=== PATIENT | female | born 1950 | race Caucasian/White ===

== ENCOUNTER 2023-12-23 17:10 | Emergency (ER) | payer MEDICARE, OTHER, SELFPAY ==
[2023-12-23 17:14] VITALS: BP 177/111
[2023-12-23] MEDS: MOTRIN 600 MG PO (18:29)
--- NOTE | 2023-12-23 18:42 | ED.MUSCINJ ---
HPI-Injury
General
Chief Complaint: Musculo-Skeletal Complaint
Source: patient and significant other
Exam Limitations: none
Time Seen by Provider: 12/23/23 18:01
Nursing documentation reviewed up to this point in time: agreed with
Travel History
Have you had any contact with someone who has COVID-19?: No
Do you have any symptoms of coronavirus? Fever > 100 degrees, chills, cough, shortness of breath, sore throat, loss of taste or smell, muscle aches, or headache?: No
History of Present Illness-Injury
Is this injury a work related problem?: No
Is pt an associate of [facility]?: No
Initial Injury comments:
Patient is a 73-year-old female with past medical history of hypertension, hyperlipidemia, breast cancer currently in remission, total knee replacement on the left, who presents to the emergency department accompanied by her for evaluation
of right knee pain. 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 Patient reports that she was able to
hobble to the car and drive home but has had to use a walker since getting home to help her get around. Patient denies that the pain radiates down her leg or up into her hip. Patient denies any numbness, weakness, tingling of the foot or toes.
Patient reports that she does have an orthopedic surgeon that she sees regularly and did have a steroid injection into this knee a few weeks ago.
Past History
Past History
ED Past Medical History: Cancer (Breast cancer), HTN and Hypercholesterolemia
Social History
Tobacco: Non-smoker
Alcohol: None
Drug: None
Personal:
Review of Systems
Review of Systems
All Other Systems: Not applicable
Constitutional: Reports no symptoms
EENT: Reports no symptoms
Respiratory: Reports no symptoms
Cardiac: Reports no symptoms
ABD/GI: Reports no symptoms
: Reports no symptoms
Musculoskeletal: Reports other (Right knee pain)
Skin: Reports no symptoms
Neurological: Reports no symptoms
Endocrine: Reports no symptoms
Hematologic/Lymphatic: Reports no symptoms
Psychiatric: Reports no symptoms
Musculoskeletal Injury Exam
Musculoskeletal Injury Exam
Right Posterior Knee:
Pain with Movement?: Moderate
Tender to palpation?: Moderate
Soft tissue swelling?: Mild
External deformity and angulation?: None
Joint effusion?: None
Contusion?: None
Hematoma-local bleeding into tissue?: None
Joint instability?: No
Malalignment/deformity?: No
Range of motion: Full
Distal skin color and temperature: normal-warm & good color
Normal distal neurovascular exam?: Yes
Phy Exam
General Physical Exam
General Presentation: well appearing
General Skin: warm and dry
General Habitus: normal
General Mental: alert
General Hydration: appears well hydrated
ENT Exam
ENT Exam: EOMI, pharynx normal, neck supple and normocephalic
Eye Exam
Eye Exam: PERRL, cornea clear and conjunctiva normal
Pulmonary Exam
Pulmonary Exam: no respiratory distress
Neurological Exam
Neurological Exam: alert, oriented x3, no motor deficits and speech normal
Skin Exam
Skin Exam: normal color, warm/dry, no rash and no petechia
Psychiatric Exam
Psychiatric Exam: normal mood/affect
Injury Course
Orders/Labs/Results
Orders:
Orders
12/23/23 18:17
Ibuprofen [Motrin] 600 mg PO NOW STA
CR Knee- Right 4 Or More View* Urgent
Reason For Exam: RIGHT posterior knee pain, hx of OA
12/23/23 19:33
Luiz Wrap Left-Treatment ONCE
*Critical Care Note
Total Time (30-74mins, 75-104mins- exclusive of procedures): Not Applicable
Update Note
Update Note:
73-year-old female presents to the emergency department for sudden onset of right knee pain while stepping down a step earlier today. On arrival, patient is hypertensive but is in pain, afebrile. On exam, patient is well-appearing, she is in no
acute distress, she has no erythema or significant swelling over the knee, she has mild tenderness to palpation over the posterior aspect of the knee with full range of motion without significant pain, she is neurovascularly intact distally.
Radiographs of the right knee were obtained and demonstrate no acute abnormality to account for the patient's pain. I suspect the patient's pain could be due to an internal derangement. Will treat as such with an Luiz wrap during the day,
instructions on supportive care including rest, ice, elevation along with NSAIDs. Patient encouraged to follow-up with her economic specialist for definitive diagnosis and treatment. Patient also educated on return precautions, she and her
significant other expressed understanding of the plan and agreed.
ED Attending Note
-
Portions of this chart may have been created with voice recognition software.� Occasional wrong word or��sound alike� substitutions may have occurred due to the inherent limitations of voice recognition software.
Discharge Plan
Departure
Patient Disposition: Home (Routine Discharge)
Date of Disposition: 12/23/23
Time of Disposition: 19:33
Patient with high blood pressure during this ER visit?: Yes
Condition: Good
Covid-19: Not Applicable
Discharge Problem:
Acute pain of right knee
Instructions: Knee Pain (DC)
Prescriptions:
No Action
gabapentin 300 mg capsule
300 mg PO TID PRN (Reason: back pain/leg pain) Qty: 30 0RF
Referrals:
Aleksandr Zuniga MD [Active] - Follow up in 5-7 days
Julian Pro MD [Family Provider] -
Activity Restrictions/Additional Instructions:
You were seen in the emergency department for evaluation of left knee pain. You had x-rays which show no bony injury. You were given an luiz wrap, please use it during the day but remove it at night. Please rest and elevate your knee. You may
take ibuprofen and/or Tylenol for pain. Please follow-up with your economic specialist for further evaluation and treatment. Please return to the emergency department for severe pain, swelling, redness, fever greater than 100.4F, or for any
other worsening or concerning symptoms.
Interventions
Interventions:
*Risk Screen - Suicide Last Done: 12/23/23 18:36
*General Assessment Last Done: 12/23/23 17:14
*Neglect/Abuse Screening Last Done: 12/23/23 18:36
ED- Fall Risk Assessment Last Done: 12/23/23 18:36
*ED COVID-19 Vaccine History Last Done: 12/23/23 17:14
*Nursing Disposition Last Done: 12/23/23 19:49
ED-Musculoskeletal Assessment Last Done: 12/23/23 18:36
Discharge Date and Time
Discharge Date/Time: 12/23/23 20:02
== END 2023-12-23 20:02 | disposition home or self-care (01) ==
LOC: EMR 17:10
PROVIDERS: EMERGENCY PHYSICIAN Emergency Medicine; FAMILY PHYSICIAN Family Medicine
DX: M25.561 Pain in right knee (principal); I10 Essential (primary) hypertension; E78.00 Pure hypercholesterolemia, unspecified; Z96.652 Presence of left artificial knee joint
CPT/HCPCS: 99283; 73564

== ENCOUNTER 2024-03-09 17:43 | Emergency (ER) | payer MEDICARE, OTHER, SELFPAY ==
[2024-03-09 17:48] VITALS: BP 197/109
[2024-03-09 18:10] LABS: % Basophils 0.8 % (0-2); % Eosinophils 1.1 % (0-6); % Immature Granulocytes 0.4 % (0-0.5); % Monocytes 10.6 % (1.7-9.3); % Neutrophils 64.1 % (42.2-75.2); Absolute Basophils 0.1 10^3/uL (0-0.2); Absolute Eosinophils 0.1 10^3/uL (0-0.7); Absolute Lymphocytes 1.8 10^3/uL (1.2-3.4); Absolute Monocytes 0.8 10^3/uL (0.1-0.6); Absolute Neutrophils 5.1 10^3/uL (1.4-6.5); Hematocrit 35.5 % (37.0-47.0); Hemoglobin 12.4 g/dL (12.0-16.0); Mean Corp Hgb Conc. 34.9 g/dL (33.0-37.0); Mean Corpuscular Hgb 27.6 pg (27.0-31.0); Mean Corpuscular Volume 78.9 fL (81.0-99.0); Mean Platelet Volume 8.9 fL (7.4-10.4); Nucleated Red Blood Cells % 0 %; Platelet Count 344 10^3/uL (130-400); Red Cell Dist. Width 14.2 % (11.5-14.5); White Blood Cell Count 7.9 10^3/uL (4.8-10.8)
[2024-03-09 18:23] LABS: D-Dimer 0.91 ug/mlFEU (0.00-0.50)
[2024-03-09 18:25] LABS: ALT (SGPT) 15 U/L (0-35); AST (SGOT) 24 U/L (14-36); Albumin 4.3 g/dl (3.5-5.0); Alkaline Phosphatase 95 U/L (38-126); Blood Urea Nitrogen 17 mg/dl (7-17); Calcium 9.8 mg/dl (8.4-10.2); Carbon Dioxide 25 mmol/L (22-30); Chloride 96 mmol/L (98-107); Glucose 105 mg/dl (70-99); Potassium 3.7 mmol/L (3.5-5.1); Sodium 130 mmol/L (135-145); Total Bilirubin 0.5 mg/dl (0.2-1.3); Total Protein 7.3 g/dl (6.3-8.2); eGFR > 60.00
[2024-03-09 18:34] LABS: Troponin I < 0.012 ng/ml
--- NOTE | 2024-03-09 21:02 | ED.GENMED ---
History of Present Illness
General
Chief Complaint: Chest Pain
Source: patient
Exam Limitations: none
Time Seen by Provider: 03/09/24 20:58
Travel History
Have you had any contact with someone who has COVID-19?: No
Do you have any symptoms of coronavirus? Fever > 100 degrees, chills, cough, shortness of breath, sore throat, loss of taste or smell, muscle aches, or headache?: No
History of Present Illness
History of Present Illness:
See MDM
Past History
Past History
ED Past Medical History: Cancer (Breast cancer), HTN and Hypercholesterolemia
Social History
Tobacco: Non-smoker
Alcohol: None
Drug: None
Personal:
Phy Exam
Physical Exam
Physical Exam:
See MDM
Scores
Heart Score for Chest Pain Patients
STEMI patient?: No
History: Slightly or Non-Suspicious
ECG: Normal
Age: >/= 65 years
Risk Factors: 1 or 2 Risk Factors
Troponin: </= Normal Limit
Heart Score for Chest Pain Patients: 3
Heart Score Risk: 2.5% MACE over next 6 weeks
Course
Orders/Labs/Results
Orders:
Orders
03/09/24 17:47
EKG [Electrocardiogram (*1)] Urgent
Reason for Study: Chest Pain
EKG- Treatment ONCE
03/09/24 18:04
CMP [Comprehensive Metabolic Panel] Urgent
Complete Blood Count/With Diff Urgent
D-Dimer Urgent
Troponin I Urgent
03/09/24 19:01
CT Chest Pe Study Urgent
Comment:
Reason For Exam: elevated dimer
03/09/24 20:37
Electrocardiogram (*1) Urgent
Reason for Study: Chest Pain
EKG- Treatment ONCE
03/09/24 21:02
Ketorolac [Toradol] 30 mg IV NOW STA
03/09/24 21:38
Labetalol HCl [Trandate] 10 mg IV NOW STA
03/09/24 21:41
Troponin I Urgent
Abnormal Lab Results
03/09/24
18:04
Hct 35.5 L %
(37.0-47.0)
MCV 78.9 L fL
(81.0-99.0)
Absolute Monos (auto) 0.8 H 10^3/uL
(0.1-0.6)
Monocytes % 10.6 H %
(1.7-9.3)
D-Dimer 0.91 H ug/mlFEU
(0.00-0.50)
Sodium 130 L mmol/L
(135-145)
Chloride 96 L mmol/L
(98-107)
Glucose 105 H mg/dl
(70-99)
03/09/24 18:04
03/09/24 18:04
Vital Signs
Initial and Last Documented VS:
Initial Vital Signs
Temp Pulse Resp BP Pulse Ox
98.2 F 97 16 197/109 96
03/09/24 17:48 03/09/24 17:48 03/09/24 17:48 03/09/24 17:48 03/09/24 17:48
Last Documented Vital Signs
Temp Pulse Resp BP Pulse Ox
98.2 F 76 16 190/105 96
03/09/24 17:48 03/09/24 21:49 03/09/24 17:48 03/09/24 21:49 03/09/24 17:48
MDM/Problems Addressed
Differential Diagnosis Includes:
HPI and MDM Narrative:
73-year-old female presenting with central chest discomfort that is worse with deep inspiration. Patient believes this could be related to gardening earlier today. She thinks it could be a muscle issue. However, she did get nervous and came to
the hospital. Blood work was done prior to my assessment. D-dimer was ordered and positive. Will obtain CT to rule out PE. EKG and troponin negative
Physical exam
General: Well appearing and non-toxic
HEENT: protecting airway
Neck: appears supple
CV: No evidence of cyanosis. Regular rate and rhythm
Chest: Mild tenderness to palpation of central chest
Resp: No accessory muscle use. Lungs clear
Abd: Non-distended
Extremities: No deformities
Neuro: alert
Psych: Mildly anxious
Skin: Intact
Problems Addressed including Acute and Chronic Conditions affecting care:
1. Chest pain
Acuity: acute
Prognosis: stable
Details: Likely musculoskeletal. Troponin EKG negative. Will obtain CT to rule out PE
2. Hypertension
Acuity: acute
Prognosis: unstable
Details: Likely a stress response. Will give dose of labetalol. No blood work evidence of endorgan damage
Updates
CT negative for PE. Patient feels comfortable going home
Differential Diagnosis (but not limited to): Musculoskeletal chest pain, PE, pneumothorax
Testing considered: Chest x-ray
Drug therapy (if applicable): OTC meds, please see d/c instruction regarding Rx drugs
Amount and/or Complexity of Data Reviewed
Clinical info obtained from: Patient
External data reviewed: N/A
Labs I independently reviewed (but not limited to): Troponin normal
Radiology: The CT scan was personally and independently reviewed. In addition, official CT report reviewed.
Pulse Ox: not hypoxic
EKG independently reviewed: Sinus rhythm, normal axis, no STEMI
Rapid Transit Operator: N/A
Critical Care: N/A
Risk of Complication:
Social Determinants of health: Good social support
Discussed with other providers: N/A
Escalation of Care includes Admit/Obs: After being observed in the Emergency Department, pt stable for discharge.
Occasional wrong word or 'sound a like' substitutions may have occurred due to the inherent limitations of voice recognition software. Read the chart carefully and recognize, using context, where substitutions have occurred.
*Critical Care Note
Total Time (30-74mins, 75-104mins- exclusive of procedures): Not Applicable
ED Attending Note
-
Portions of this chart may have been created with voice recognition software.� Occasional wrong word or��sound alike� substitutions may have occurred due to the inherent limitations of voice recognition software.
Discharge Plan
Departure
Patient Disposition: Home (Routine Discharge)
Date of Disposition: 03/09/24
Time of Disposition: 22:31
Patient with high blood pressure during this ER visit?: Yes
Discharge Problem:
Chest pain
Instructions: Chest Pain That Is Not Caused by the Heart (DC), BLOOD PRESSURE
Prescriptions:
No Action
gabapentin 300 mg capsule
300 mg PO TID PRN (Reason: back pain/leg pain) Qty: 30 0RF
Referrals:
Julian Pro MD [Family Provider] -
Activity Restrictions/Additional Instructions:
Please return for any worsening symptoms.
You may return at any time if you have further concerns.
Please follow up with your doctor at the first available appointment, preferably this week.
Thank you for choosing [facility].
Discharge Date and Time
Print Language: YAKUT
[2024-03-09] MEDS: TORADOL 30 MG IV (21:48)
[2024-03-09] MEDS: TRANDATE 10 MG IV (21:49)
[2024-03-09 22:22] LABS: Troponin I < 0.012 ng/ml
[2024-03-09 22:51] VITALS: BP 185/102
== END 2024-03-09 22:55 | disposition home or self-care (01) ==
LOC: EMR 17:43
PROVIDERS: Emergency Medicine; EMERGENCY PHYSICIAN Student in an Organized Health Care Education/Training Program; FAMILY PHYSICIAN Family Medicine
DX: R07.89 Other chest pain (principal); E78.00 Pure hypercholesterolemia, unspecified; I10 Essential (primary) hypertension; Z85.3 Personal history of malignant neoplasm of breast
CPT/HCPCS: 99284; 96374; 96375; 71275; 80053; 84484; 85025; 85379; 93005; Q9967

== ENCOUNTER 2024-04-06 20:58 | Emergency (ER) | payer MEDICARE, OTHER, SELFPAY ==
[2024-04-06 20:59] VITALS: BP 194/89; BMI 30.1
--- NOTE | 2024-04-06 21:36 | ED.GENMED ---
History of Present Illness
General
Chief Complaint: Fall
Source: patient and spouse
Exam Limitations: none
Time Seen by Provider: 04/06/24 21:00
Nursing documentation reviewed up to this point in time: agreed with
Travel History
Have you had any contact with someone who has COVID-19?: No
Do you have any symptoms of coronavirus? Fever > 100 degrees, chills, cough, shortness of breath, sore throat, loss of taste or smell, muscle aches, or headache?: No
History of Present Illness
History of Present Illness:
73-year-old female presents after a fall, had a total knee replacement as an outpatient today by Dr. Zuniga, walking with her walker tried to bear some weight on her right knee felt pain fell backwards struck her head on the ground no loss of
consciousness, did strike her right forearm on the ground arrives via EMS, in a cervical collar, Dr. Zuniga coincidently called the patient around this time to check on her, she is awake alert and oriented, only complaining of pain in her right
knee although she believes she did not strike her knee directly no preceding chest pain or shortness of breath
Past History
Past History
ED Past Medical History: Cancer (Breast cancer), HTN and Hypercholesterolemia
ED Past Surgical History: Orthopedic
Social History
Tobacco: Non-smoker
Alcohol: None
Drug: None
Personal:
Living: with family
Employment: Retired
Review of Systems
Review of Systems
All Other Systems: Not applicable
Constitutional: Denies fever or fatigue
Respiratory: Reports no symptoms
Cardiac: Reports no symptoms
ABD/GI: Reports no symptoms
Musculoskeletal: Reports joint pain; Denies neck pain
Neurological: Reports headache (Very mild posterior)
Hematologic/Lymphatic: Reports no symptoms
Psychiatric: Reports no symptoms
Phy Exam
Physical Exam
Physical Exam:
Physical Exam
General: no apparent distress, not acutely ill
Neck: Patient is a cervical collar
Heart: Regular
Lungs: no acute respiratory distress. clear bilaterally
Neuro: alert and oriented. no focal neurological deficits
Skin: no rash
Psychiatric: well kept. interactive and cooperative
Extremities: Expected swelling and pain in the right knee postoperatively small abrasion of the right forearm on the volar surface full range of motion
Course
Orders/Labs/Results
Orders:
Orders
04/06/24 21:16
CT Cervical Spine W/o Iv Contr Urgent
Comment:
Reason For Exam: fall
CT Head W/o Iv Contrast Urgent
Comment:
Reason For Exam: fall
Forearm, Right 2 View [CR Forearm - Right 2 View] Urgent
Comment:
Reason For Exam: fall
04/06/24 21:17
Knee, Right 1 or 2 Views [CR Knee - Right 1 Or 2 Views] Urgent
Comment:
Reason For Exam: fall TKR today
Vital Signs
Initial and Last Documented VS:
Initial Vital Signs
Temp Pulse Resp BP Pulse Ox
98.0 F 98 20 194/89 98
04/06/24 20:59 04/06/24 20:59 04/06/24 20:59 04/06/24 20:59 04/06/24 20:59
Last Documented Vital Signs
Temp Pulse Resp BP Pulse Ox
98.0 F 87 17 194/89 98
04/06/24 20:59 04/06/24 21:30 04/06/24 21:30 04/06/24 20:59 04/06/24 21:30
MDM/Problems Addressed
Differential Diagnosis Includes:
Slip and fall contusion C-spine injury history of hemorrhage
MDM/Problems Addressed:
Fall, no chest pain or shortness of breath
Chronic conditions affecting care:
Recent orthopedic surgery
Acute Exacerbation and/or Progression of Chronic Illness:
Recent orthopedic surgery
*Radiology
Radiology exam reviewed: preliminary read by ED provider and radiology read reviewed
*Pulse Oximetry
Patient hypoxic: no
*Critical Care Note
Total Time (30-74mins, 75-104mins- exclusive of procedures): Not Applicable
Update Note
Update Note:
Update, plain films noted CT reports noted
ED Attending Note
-
Portions of this chart may have been created with voice recognition software.� Occasional wrong word or��sound alike� substitutions may have occurred due to the inherent limitations of voice recognition software.
Discharge Plan
Departure
Patient Disposition: Home (Routine Discharge)
Date of Disposition: 04/06/24
Time of Disposition: 22:22
Patient with high blood pressure during this ER visit?: No
Condition: Good
Discharge Problem:
Fall
Instructions: Preventing falls in adults
Prescriptions:
No Action
gabapentin 300 mg capsule
300 mg PO TID PRN (Reason: back pain/leg pain) Qty: 30 0RF
Referrals:
Julian Pro MD [Family Provider] -
Activity Restrictions/Additional Instructions:
Ice to areas that hurt, continue medications as prescribed by orthopedics
Interventions
Interventions:
*Risk Screen - Suicide Last Done: 04/06/24 20:59
*General Assessment Last Done: 04/06/24 20:59
*Neglect/Abuse Screening Last Done: 04/06/24 20:59
ED- Fall Risk Assessment Last Done: 04/06/24 21:07
*ED COVID-19 Vaccine History Last Done: 04/06/24 20:59
ED-Musculoskeletal Assessment Last Done: 04/06/24 21:07
ED- Neurological Assessment Last Done: 04/06/24 21:06
ED-Skin Assessment Last Done: 04/06/24 21:09
Discharge Date and Time
Print Language: CITIZ[place]
[2024-04-06 22:07] VITALS: BP 178/91
== END 2024-04-06 22:47 | disposition home or self-care (01) ==
LOC: EMR 20:58
PROVIDERS: EMERGENCY PHYSICIAN Emergency Medicine; FAMILY PHYSICIAN Family Medicine
DX: M25.561 Pain in right knee (principal); S50.811A Abrasion of right forearm, initial encounter; W19.XXXA Unspecified fall, initial encounter; Z96.651 Presence of right artificial knee joint
CPT/HCPCS: 99285; 70450; 72125; 73090; 73560

== ENCOUNTER 2024-04-09 23:53 | Inpatient (IN) | payer MEDICARE, OTHER, SELFPAY ==
[2024-04-09 20:07] VITALS: BMI 30.8
[2024-04-09 20:17] VITALS: BP 207/85
[2024-04-09 20:19] VITALS: BP 207/85
[2024-04-09 20:26] LABS: % Basophils 0.2 % (0-2); % Immature Granulocytes 1.1 % (0-0.5); % Lymphocytes 4.8 % (20.5-51.1); % Monocytes 5.6 % (1.7-9.3); % Neutrophils 88.3 % (42.2-75.2); Absolute Basophils 0.1 10^3/uL (0-0.2); Absolute Immature Granulocytes 0.3 10^3/uL (0-0.05); Absolute Lymphocytes 1.3 10^3/uL (1.2-3.4); Absolute Monocytes 1.5 10^3/uL (0.1-0.6); Absolute Neutrophils 23.6 10^3/uL (1.4-6.5); Hematocrit 29.6 % (37.0-47.0); Hemoglobin 10.8 g/dL (12.0-16.0); Mean Corp Hgb Conc. 36.5 g/dL (33.0-37.0); Mean Corpuscular Hgb 27.9 pg (27.0-31.0); Mean Corpuscular Volume 76.5 fL (81.0-99.0); Nucleated Red Blood Cells % 0 %; Platelet Count 389 10^3/uL (130-400); Red Blood Cell Count 3.87 10^6/uL (4.20-5.40); Red Cell Dist. Width 13.6 % (11.5-14.5); White Blood Cell Count 26.7 10^3/uL (4.8-10.8)
[2024-04-09 20:45] LABS: ALT (SGPT) 21 U/L (0-35); AST (SGOT) 29 U/L (14-36); Albumin 4.1 g/dl (3.5-5.0); Alkaline Phosphatase 88 U/L (38-126); Blood Urea Nitrogen 17 mg/dl (7-17); Carbon Dioxide 22 mmol/L (22-30); Chloride 90 mmol/L (98-107); Estimated Creatinine Clearance 83 ml/min; Glucose 124 mg/dl (70-99); Potassium 3.6 mmol/L (3.5-5.1); Sodium 122 mmol/L (135-145); Total Bilirubin 0.7 mg/dl (0.2-1.3); Total Protein 6.9 g/dl (6.3-8.2); eGFR > 60.00
--- NOTE | 2024-04-09 21:13 | ED.GENMED ---
History of Present Illness
General
Chief Complaint: Abdominal Pain
Source: patient
Exam Limitations: none
Time Seen by Provider: 04/09/24 20:39
History of Present Illness
History of Present Illness:
This is a 73 year old female that comes in with c/o lower abd pain. States that around 3:30pm she took a Dulcolax. States that she has not had much of a BM since surgery. States that on Friday she had a right total knee replacement. Friday she
had no BM and the on she had 2 walnut size balls. Today she again had very small stool. Significant other states that she normally goes 2-3 times daily. States that she did take a stool softener on Fri but since she went a little she
stopped this. States that she has lower abd pain. Denies any fever, chills, chest pain, SOB, nausea, vomiting, diarrhea, headache, dizziness, urinary burning.
Past History
Past History
ED Past Medical History: Cancer (Breast cancer), HTN, Hypercholesterolemia, Psychiatric (Anxiety, ) and Other (Pinched nerve in neck, Sciatica, )
ED Past Surgical History: Orthopedic (Left and right total knee replacement, Bone spur right shoulder) and Other (Right breast Lumpectomy)
Social History
Tobacco: Non-smoker
Alcohol: None
Drug: None
Personal: Single (Significant other)
Living: with family
Employment: Retired
Review of Systems
Review of Systems
All Other Systems: ROS reviewed and negative except as documented in HPI and ROS
Constitutional: Reports no symptoms; Denies fever or chills
EENT: Reports no symptoms
Respiratory: Reports no symptoms; Denies cough or trouble breathing
Cardiac: Reports no symptoms; Denies chest pain
ABD/GI: Reports abdominal pain and constipated; Denies nausea, vomiting or diarrhea
: Reports no symptoms; Denies dysuria, frequency or urgency
Musculoskeletal: Reports no symptoms
Skin: Reports no symptoms
Neurological: Reports no symptoms; Denies dizzy or headache
Psychiatric: Reports no symptoms
Phy Exam
General Physical Exam
General Presentation: no apparent distress
General age: appears stated age
General Skin: warm and dry
General Habitus: elderly
General Mental: alert
General Hydration: appears well hydrated
ENT Exam
ENT Exam: TM's normal, pharynx normal and neck supple
Eye Exam
Eye Exam: EOMI
Cardiovascular Exam
Cardiovascular Exam: regular rate/rhythm, no edema, no murmur and normal peripheral pulses
Pulmonary Exam
Pulmonary Exam: lungs clear, no respiratory distress, no rales, chest non tender, no crackles, no rhonchi, no wheezing and no cough
Gastrointestinal Exam
Gastrointestinal Exam: normal bowel sounds, soft, no organomegaly, no pulsatile mass, non distended and tender (Lower abd tenderness with palpation)
Musculoskeletal Exam
Musculoskeletal Exam: full ROM and edema (right lower leg +1 pitting)
Skin Exam
Skin Exam: normal color, warm/dry, no petechia and other (Contusion noted on the right medial aspect of the lower leg. Large surgical dressing intact, )
Psychiatric Exam
Psychiatric Exam: normal mood/affect
Course
Orders/Labs/Results
Orders:
Orders
04/09/24 20:17
Complete Blood Count/With Diff Urgent
Comprehensive Metabolic Panel Urgent
04/09/24 21:12
CT Abd/pelvis W Iv Cont Urgent
Comment:
Reason For Exam: Lower abd pain
0.9% Sodium Chloride 1000 ml [Nss] 1,000 ml IV BOLUS
04/09/24 22:29
Osmolality, Random Urine Urgent
Date Specimen was Collected: 04/09/24
Time Specimen was Collected: 21:46
Urine Sodium Urgent
Date Specimen was Collected: 04/09/24
Time Specimen was Collected: 21:46
04/09/24 22:37
HydrALAZINE [Apresoline] 5 mg IV NOW STA
Abnormal Lab Results
04/09/24 04/09/24
20:17 22:29
WBC 26.7 H 10^3/uL
(4.8-10.8)
RBC 3.87 L 10^6/uL
(4.20-5.40)
Hgb 10.8 L g/dL
(12.0-16.0)
Hct 29.6 L %
(37.0-47.0)
MCV 76.5 L fL
(81.0-99.0)
Abs Immat Gran (auto) 0.3 H 10^3/uL
(0-0.05)
Absolute Neuts (auto) 23.6 H 10^3/uL
(1.4-6.5)
Absolute Monos (auto) 1.5 H 10^3/uL
(0.1-0.6)
Immature Gran % 1.1 H %
(0-0.5)
Neutrophils % 88.3 H %
(42.2-75.2)
Lymphocytes % 4.8 L %
(20.5-51.1)
Sodium 122 L mmol/L
(135-145)
Chloride 90 L mmol/L
(98-107)
Creatinine 0.5 L mg/dL
(0.6-1.0)
Glucose 124 H mg/dl
(70-99)
Urine Osmolality 186 L mOsm/kg
(300-900)
04/09/24 20:17
04/09/24 20:17
Leukocytosis (patient just finished steroids today), H/H low. Hyponatremia (corrected sodium is 122.4), Chloride low. Glucose nonfasting.
Vital Signs
Initial and Last Documented VS:
Initial Vital Signs
Temp Pulse Resp Pulse Ox
98.0 F 84 20 96
04/09/24 20:07 04/09/24 20:07 04/09/24 20:07 04/09/24 20:07
Last Documented Vital Signs
Temp Pulse Resp BP Pulse Ox
98.0 F 94 23 223/98 94
04/09/24 20:07 04/09/24 22:34 04/09/24 22:34 04/09/24 22:34 04/09/24 22:34
MDM/Problems Addressed
Differential Diagnosis Includes:
Constipation, Bowel obstruction
MDM/Problems Addressed:
This is a 73 year old female that comes in with c/o lower abd pain. State that she has not had a normal BM since her knee surgery on Friday.
Will check labs, CT abd, Give IV fluids.
Back into see patient. Explained that her CT shows enteritis. She also has Hyponatremia. Will admit patient and limit her oral intake as patient states that she had drank 8 bottles of water. Explained that she may be able to go home tomorrow. While
here that can also help her constipation. Hospitalist notified.
Chronic conditions affecting care:
NA
Acute Exacerbation and/or Progression of Chronic Illness:
NA
*Radiology
Radiology exam reviewed: radiology read reviewed (CT-Markedly limited evaluation of intestinal tract without oral contrast with some fluid-filled nondilated loops of smal bowel particularly in the lower abdomen and true pelvis with some mild
intervening mesenteric stranding, without small bowel obstruction. Findings could represent small bowel ) and all reviewed NAD by ED Provider (CT cont- enteritis Sigmoid diverticulosis markedly limited without oral contrast. Cholelithiasis.
Symmetric renal excretion. Nonspecific bilateral predominantly symmetric perinephric stranding. )
*Pulse Oximetry
Patient hypoxic: no
*EKG
Interpreted by ED Provider?: NA
Rate: EKG- N/A
*System Support Specialist Interpretation
Rate: normal
Heart Rate: 87
Rhythm: sinus
*Critical Care Note
Total Time (30-74mins, 75-104mins- exclusive of procedures): Not Applicable
ED Attending Note
-
Portions of this chart may have been created with voice recognition software.� Occasional wrong word or��sound alike� substitutions may have occurred due to the inherent limitations of voice recognition software.
Discharge Plan
Departure
Patient Disposition: Admit
Date of Disposition: 04/09/24
Time of Disposition: 23:01
Admit to: Med/Surg
Presentation/result/management discussed w/ accepting MD/DO: Hospitalist
Patient with high blood pressure during this ER visit?: Yes
Condition: Good
Covid-19: Not Applicable
Discharge Problem:
Acute hyponatremia, Enteritis
Prescriptions:
No Action
gabapentin 300 mg capsule
300 mg PO TID PRN (Reason: back pain/leg pain) Qty: 30 0RF
Referrals:
Julian Pro MD [Family Provider] -
Interventions
Interventions:
*Risk Screen - Suicide Last Done: 04/09/24 20:07
*General Assessment Last Done: 04/09/24 20:07
*Neglect/Abuse Screening Last Done: 04/09/24 20:07
ED- Fall Risk Assessment Last Done: 04/09/24 20:07
*ED COVID-19 Vaccine History Last Done: 04/09/24 20:07
LZ-Rzqjqq-Pglyhzfcfu Assessment Last Done: 04/09/24 20:07
Discharge Date and Time
Print Language: TURKISH
[2024-04-09] MEDS: NSS 1000 IV (21:23)
[2024-04-09 22:34] VITALS: BP 223/98
[2024-04-09] MEDS: APRESOLINE 5 MG IV (22:40)
[2024-04-09 22:45] LABS: Osmolality Urine 186 mOsm/kg (300-900)
[2024-04-09 23:00] VITALS: BP 178/77
[2024-04-09 23:02] LABS: Urine Albumin Negative (Neg - Trace); Urine Bilirubin Negative (Negative); Urine Character Clear (Clear); Urine Color Straw; Urine Glucose Negative (Negative); Urine Ketone Negative (Negative); Urine Leukocyte Trace (Negative); Urine Nitrite Negative (Negative); Urine Occult Blood Negative (Negative); Urine Specific Gravity 1.005 (<1.030); Urine Urobilinogen Negative (Neg - 1+)
--- NOTE | 2024-04-09 23:13 | HPS.HSE ---
Family Physician
-
Family Physician: Julian Pro MD
Chief Complaint
-
abd pain distention, no bm x 3 days
History of Present Illness
73-year-old female complaining of lower abdominal pain with abdominal distention. She is unable to place flatulence. She reports no bowel movement for the past 3 days. At 3:30 PM she took a Dulcolax and had a very small amount of stool. She
reports she normally goes 2-3 times a day. She denies headache, fever, chills, chest pain, shortness breath, cough, nausea, vomiting, diarrhea, urinary symptoms. She is status post right knee replacement on 04/06/2024
Past medical history HTN, HLD, anxiety, sciatica, cervical radicular pain, breast cancer status post right breast lumpectomy, anxiety
Medical History
Past Medical History
Past Medical History: Reports Other
Additional Past Medical History:
HTN, HLD, anxiety, sciatica, cervical radicular pain, breast cancer status post right breast lumpectomy, anxiety
Past Surgical History: Reports Other
Additional Past Surgical History:
Right total knee replacement 04/07/2024
Left total right knee replacement
Bone spur repair right shoulder
Right breast lumpectomy secondary to cancer
Social History
Tobacco: Non-smoker
Alcohol: None
Drug: None
Personal:
Living: With Family
Employment: Retired
Family History
Family History: Not pertinent
Allergies / Home Medications
Allergies reflects when Allergies were last updated in [facility].
Home Medications with original date entered in [facility]
Allergy/Medication List:
Allergies
Allergy/AdvReac Type Severity Reaction Status Date / Time
amoxicillin [From Augmentin] Allergy Unknown Unknown Verified 04/06/24 21:37
clavulanic acid Allergy Unknown Unknown Verified 04/06/24 21:37
[From Augmentin]
erythromycin base Allergy Unknown Unknown Verified 04/06/24 21:37
[id number] Reductase Allergy Unknown Unknown Verified 04/06/24 21:37
Inhibitor
Home Medications
acetaminophen 500 mg tablet 1,000 mg PO Q6H PRN MILD PAIN 04/09/24
aspirin 81 mg tablet,delayed release 81 mg PO BID 04/09/24
bisacodyl 5 mg tablet,delayed release (Dulcolax (bisacodyl)) 5 mg PO ONCE 04/09/24
calcium 2,250 mg PO DAILY 04/09/24
celecoxib 100 mg capsule 100 mg PO BID 04/09/24
docusate sodium 100 mg capsule 100 mg PO BID 04/09/24
hydrochlorothiazide 12.5 mg tablet 12.5 mg PO DAILY 04/09/24
losartan 50 mg tablet 50 mg PO DAILY 04/09/24
Review of Systems
-
History Source: Patient and Family
A 12 point ROS was completed and negative except as noted: Yes
Constitutional: Denies Fever or Chills
EENT: Denies Sore Throat or Runny Nose
Respiratory: Denies Cough or Trouble Breathing
Cardiac: Denies Chest Pain, Palpitations or Syncope
Abdomen/GI: Reports Abdominal Pain, Constipated and Other (Abdominal distention); Denies Nausea, Vomiting, Diarrhea, Bloody Stools or Black Stools
: Denies Dysuria, Frequency, Flank Pain, Incontinence, Difficulty Voiding or Urgency
Musculoskeletal: Reports Joint Pain (Right knee with Aquacel dressing in place, surrounding healing ecchymosis with surrounding warmth of anterior thigh/medial thigh)
Skin: Denies Itching or Rash
Neurological: Denies Dizzy, Headache or Weakness
Endocrine: Reports No Symptoms
Hematologic/Lymphatic: Reports No Symptoms
Psych: Reports Calm
Physical Exam
Vital Signs
Vital Signs
Temp Pulse Resp BP Pulse Ox
98.0 F 98 19 178/77 94
04/09/24 20:07 04/09/24 23:00 04/09/24 23:00 04/09/24 23:00 04/09/24 23:00
Physical Exam
General: No Pain or Chills
HEENT: NormoCephalic, Anicteric, PERRLA, [place] Conjunctivae, No Ptosis and Neck Nontender
Respiratory: Clear; No Wheezes, Rales or Rhonchi
Cardiac: S1/S2 and Regular Rhythm; No Murmur, Rub, Gallop or Peripheral Edema
Breast: Deferred by me
GI: Soft, Tender (Generalized increased lower abdomen) and Distended (Hypoactive bowel sounds)
Genito-urinary: Deferred by me
Musculoskeletal: No Clubbing, No Cyanosis and Edema, Right Lower Extremity (Right knee with Aquacel dressing in place, surrounding healing ecchymosis with surrounding warmth of anterior thigh/medial thigh); No Edema, Left Upper Extremity, Edema,
Right Upper Extremity or Edema, Left Lower Extremity
Skin: Warm and Dry; No Rash
Neuro: AO x 3, No Motor Deficits, Nonfocal/grossly intact, Cranial Nerves Intact and No Sensory Deficits; No Slurred Speech, Facial Droop, Tremors or Sedated
Psych: Anxious
Laboratory Results
-
04/09/24 20:17
04/09/24 20:17
Laboratory Results
Total Bilirubin 0.7 mg/dl (0.2-1.3) 04/09/24 20:17
AST 29 U/L (14-36) 04/09/24 20:17
ALT 21 U/L (0-35) 04/09/24 20:17
Alkaline Phosphatase 88 U/L (38-126) 04/09/24 20:17
Impression/Plan
-
Impression/plan:
Admit to telemetry
#Acute leukocytosis with Abd/ pain concern for enteritis vs bowel obst
Recent constipation x 3 days no relief with Dulcolax
WBC 26.7 with left shift, afebrile, HR 98
-Check blood cultures x 2, lactic acid
-Consult GI
-Iv zofran
- NPO
-Iv morphine prn pain
follow cbc , cmp
#Hyponatremia hypervolemic poss siadh/ pian / polydypsia
NA 122
pt drank 128 oz today in 8 hours from 11-8pm
-Urine NA, urine Osmo, serum Osmo, TSH with free T4 reflex
#s/p Right knee replacement 04/07/2024 with possible right knee infection
-consult Dr rudolph
- Iv Ancef
#Hypertensive urgency
223/98 > 170/77 post IV hydralazine 5 mg given in er
IV hydralazine as needed every 6h SBP >160 shubham>90
#Postop anemia
Hgb 10.8 was 12.4 on 03/09/2024
#HLD
no meds
#Anxiety
no current meds
Other PMH:
Chronic cervical radicular pain
Chronic sciatica
Breast cancer status post right breast lumpectomy
DVT prophylaxis
SCDs
Full code
[2024-04-09 23:18] LABS: Urine Sodium 58 mmol/L (30-90)
[2024-04-09 23:37] LABS: Urine Bacteria Few (Negative); Urine Red Blood Cell 0-2 /HPF (0-2); Urine Squamous Cell 0-2 /LPF (Few); Urine White Cell 0-2 /HPF (0-5)
--- NOTE | 2024-04-09 23:42 | W.PN.UPDATE ---
Update Note
Progress Note Update
This is an addendum to the H&P written by ASAEL Robert on 04/09/2024. Patient seen and examined independently with EVENTS ADMINISTRATIVE ASSISTANT.
73-year-old female past medical history of breast cancer, hypertension, hypercholesterolemia, anxiety, presenting with severe lower abdominal pain and constipation after having right total knee replacement 3 days ago despite taking Dulcolax. She
drank 128 ounces in 8 hours today.
On examination abdomen is distended, severe tenderness of the lower abdomen with decreased bowel sounds. Right knee appears erythematous and is warm.
Patient with blood pressure initially above 200. Labs show leukocytosis 26, sodium of 122. CT scan abdomen performed without oral contrast shows fluid-filled nondilated loops of small bowel lower abdomen/to process some mild intervening mesenteric
stranding the small bowel obstruction which could represent enteritis.
# Severe abdominal pain with constipation concerning for ileus versus enteritis versus small bowel obstruction
-Very distended, tender with decreased bowel sounds
-NPO
-CT report interpreted as enteritis.
-Check lactic acid level
-GI consulted
-Check abdominal x-ray in a.m.
-Morphine for pain
# Possible right knee infection after right total knee replacement 3 days ago
-Check blood cultures
-Cefazolin
-Ortho consulted
# Hyponatremia secondary to pain/SIADH/polydipsia
-N.p.o. with fluid restriction
-Check urine sodium, osmolality
# Hypertensive urgency
-Secondary to pain
-As needed hydralazine
[2024-04-10] VITALS (10 sets, daily range): BP systolic 146–168; BP diastolic 68–86; BMI 29.7
[2024-04-10] MEDS: MORPHINE SULFATE 2 MG IV (00:12)
[2024-04-10] MEDS: TORADOL 30 MG IV (00:12)
[2024-04-10] MEDS: ANCEF 5 IV ×2 (00:23→08:07)
[2024-04-10] MEDS: FLUSH (NSS) 1 FLUSH IV (00:24)
[2024-04-10 00:39] LABS: Lactic Acid 1.3 mmol/L (0.7-2.0)
[2024-04-10 00:58] LABS: Osmolality Serum 257 mOsm/kg (275-300)
[2024-04-10 01:27] LABS: TSH Reflex To Free T4 1.46 uIU/ml (0.47-4.68)
--- NOTE | 2024-04-10 02:38 | PTCARENOTE ---
Received pt from ED into room 2122 around 0120. Pt pulled from stretcher to bed. at bedside. Pt is AAOx3. VSS. S/p R TKR on 04/06/24, Aquacell dressing intact. +1 RLE swelling. Complaining of 4/10 abdominal pain. Abdomen distended, + BS. See
Assessment. SCDs applied. Patient oriented to room, bed in lowest position, call maddox within reach.
[2024-04-10 03:36] LABS: Osmolality Urine 361 mOsm/kg (300-900)
[2024-04-10 03:53] LABS: Urine Sodium 65 mmol/L (30-90)
[2024-04-10 08:13] LABS: % Basophils 0.3 % (0-2); % Immature Granulocytes 0.5 % (0-0.5); % Lymphocytes 3.8 % (20.5-51.1); % Monocytes 2.2 % (1.7-9.3); % Neutrophils 93.2 % (42.2-75.2); Absolute Basophils 0.1 10^3/uL (0-0.2); Absolute Immature Granulocytes 0.1 10^3/uL (0-0.05); Absolute Lymphocytes 0.9 10^3/uL (1.2-3.4); Absolute Monocytes 0.5 10^3/uL (0.1-0.6); Absolute Neutrophils 22.2 10^3/uL (1.4-6.5); Hematocrit 29.6 % (37.0-47.0); Hemoglobin 10.6 g/dL (12.0-16.0); Mean Corp Hgb Conc. 35.8 g/dL (33.0-37.0); Mean Corpuscular Hgb 27.8 pg (27.0-31.0); Mean Corpuscular Volume 77.7 fL (81.0-99.0); Mean Platelet Volume 9.4 fL (7.4-10.4); Nucleated Red Blood Cells % 0 %; Platelet Count 381 10^3/uL (130-400); Red Blood Cell Count 3.81 10^6/uL (4.20-5.40); Red Cell Dist. Width 13.6 % (11.5-14.5); White Blood Cell Count 23.8 10^3/uL (4.8-10.8)
[2024-04-10 08:30] LABS: ALT (SGPT) 19 U/L (0-35); AST (SGOT) 21 U/L (14-36); Albumin 3.6 g/dl (3.5-5.0); Alkaline Phosphatase 82 U/L (38-126); Blood Urea Nitrogen 15 mg/dl (7-17); Carbon Dioxide 24 mmol/L (22-30); Chloride 96 mmol/L (98-107); Estimated Creatinine Clearance 82 ml/min; Glucose 92 mg/dl (70-99); Potassium 3.7 mmol/L (3.5-5.1); Sodium 129 mmol/L (135-145); Total Protein 6.3 g/dl (6.3-8.2); eGFR > 60.00
--- NOTE | 2024-04-10 08:37 | W.PN.ORTHO ---
Addendum entered and electronically signed by Aleksandr Zuniga MD 04/10/24 09:09:
Discussed case with Dr. Oneill.
I have already discontinued Morphine and Zofran. Patient with probable postop ileus. Will likely need suppository/enema.
Postoperatively she has been on Colace twice daily and has also tried 1 oral Dulcolax at home yesterday. She has not taken any narcotics in the postoperative period.
Her leukocytosis is likely secondary to oral steroids which were provided postoperatively (course finished yesterday).
We will resume aspirin for DVT prophylaxis with sips of water today.
Greatly appreciate GI input.
Addendum entered and electronically signed by Aleksandr Zuniga MD 04/10/24 08:46:
Fresh right knee Aquacel dressing applied. Physical therapy consult ordered.
Original Note:
Today's Communication / Plan
-
Her right knee surgical incision is healing well. There is no significant drainage or erythema. Patient is able to flex knee without significant discomfort. I have NO concern this patient has an underlying right knee infection. Cefazolin not
required from an orthopedic standpoint. Aspirin for DVT prophylaxis. Leg pumps discontinued, foot pumps ordered. Strongly recommend physical therapy to get patient out of bed to help improve bowel function. Patient's readmission secondary to
likely ileus. Bowel protocol to encourage GI mobility.
Assessment
.
Distal Motor Intact: Yes
Dressing:
Right knee dressing removed. Surgical incision is healing well. No significant drainage. No significant erythema. Right knee range of motion 0-90 degrees.
Plan
.
Surgery / Date: S/P R TKA 04/06
DVT Prophylaxis: Aspirin
Activity:
Out of bed.
PT/OT
Discharge Plan: Home w/ Outpatient PT
Subjective
.
.:
Patient resting comfortably. Patient with significant abdominal distention.
Vital Signs and Labs
.
Vital Signs and Labs:
Lab Results
04/10/24 07:39
06/22/24 07:39
Temp Pulse Resp BP Pulse Ox
98.6 F 94 18 164/84 95
04/10/24 07:05 04/10/24 07:05 04/10/24 07:05 04/10/24 07:05 04/10/24 07:05
--- NOTE | 2024-04-10 08:55 | CON.GI ---
Addendum entered and electronically signed by Leobardo Oneill MD 04/10/24 09:52:
I saw and examined the patient.
The FA[employer] WORKER or PA's note was reviewed and I agree with the note.
Comment: 73yo female presents with acute abdominal pain yesterday after R TKR on Friday. She remained active after surgery and was participating in PT, but BMs became less frequent and smaller amt. She has not required narcotics for pain. Last
significant BM was Friday with small pieces since then, including yesterday. She denies prior GI issues. She attempted colonoscopy in the past but had poor prep due to vomiting. CT shows fluid filled nondilated loops small bowel with some mild
mesenteric stranding, possibly representing SB enteritis, but markedly limited exam without oral contrast. WBC elevated at 26K due to recent steroids. Small hard stool on rectal exam. No prior abdominal surgeries
REC:
Give milk and molasses enema and dulcolax PO
Add colace and miralax
Check f/u xray to r/o developing obstruction
Advance diet once bowel function resumes
Promote activity and avoid narcotics as she has been doing
Addendum entered and electronically signed by Azalea Browne NP 04/10/24 09:40:
Hyponatremia, improving. Management as per hospitalist.
Original Note:
Consultation
-
Date/Time Consultation Requested: 04/10/24 @ 01:22
Date/Time Consultation Performed: 04/10/24 @ 09:00
Requesting Provider: MICHAEL Stauffer
Performing Provider: MICHAEL Hickey; Dr. Leobardo Oneill
Reason for Consultation: poss enteritis versus sbo
Medical History
Chief Complaint / HPI
Chief Complaint: abdominal distention, no BM in 3 days
History of Present Illness:
The pt is a 73-year-old female with a past medical history significant for hypertension, hyperlipidemia, breast cancer status post right breast lumpectomy, lumbar radiculopathy/sciatica, recent right knee replacement on 04/06/2024, osteoarthritis,
who presented to the emergency room with complaints of abdominal distention and pain, which we are being asked to evaluate for. Patient reports undergoing a right knee replacement on 04/06 without complication. She had only been using
anti-inflammatories and Tylenol postop and had been doing well with her physical therapy. She notes that she had been mobile as well. She notes that she had some constipation postop and had been taking some stool softeners, but this was not
producing any significant bowel movements. Her last good bowel movement was on Friday, with subsequent bowel movements on and Friday but only small stool balls. She notes that she developed sudden pain in her lower abdomen on Friday that
was very severe in nature. She notes that the pain was radiated to her back at times. She denies any overt nausea or vomiting. She reports that she has not been moving much gas and has felt her abdomen get progressively distended. She notes that
prior to this she was eating and drinking okay, and actually participating in gardening with her . She denies any prior history of constipation or abnormal bowel habits. She does also admit to difficulty urinating. She otherwise denies any
fevers, chills, chest pain, shortness of breath, melena, or hematochezia. She reports attempting to undergo colonoscopy several years ago out of [facility] system, but had inadequate prep and was advised to have a repeat colonoscopy but she did not
undergo this as she had severe nausea and vomiting from the prep. She denies use of blood thinners aside from aspirin postoperatively. On admission she underwent a CT scan of the abdomen and pelvis which showed concern for possible enteritis.
Upon review of imaging it also appeared she was significantly constipated. She was made n.p.o. and admitted for further evaluation by GI. Routine labs did show an elevated WBC count but she was placed on steroids postop by her orthopedist. There
were no documented fevers on admission. Her sodium also was severely low, which has since improved from 122 to 129 with IV fluids. Bladder scan today showed over 400 cc of urine in the bladder.
Past Medical History
Past Medical History: Cancer (Procedure), HTN, Hypercholesterolemia and Other (Lumbar radiculopathy/sciatica, anxiety)
Past Surgical History: Orthopedic (Right total knee replacement 04/06/2024, left knee replacement, right bone spur shoulder) and Other (Breast lumpectomy)
Social History
Tobacco: Non-Smoker
Alcohol: None
Drug: None
Personal:
Living: With Family
Family History
Family History: Reviewed & Not Pertinent
Allergies / Home Medications
Allergy/AdvReac Type Severity Reaction Status Date / Time
amoxicillin [From Augmentin] Allergy Unknown Unknown Verified 04/06/24 21:37
clavulanic acid Allergy Unknown Unknown Verified 04/06/24 21:37
[From Augmentin]
erythromycin base Allergy Unknown Unknown Verified 04/06/24 21:37
Miiuplz-EOR-IvE Reductase Allergy Unknown Unknown Verified 04/06/24 21:37
Inhibitor
�Medication �Instructions �Recorded
acetaminophen 500 mg tablet 1,000 mg PO Q6H PRN MILD PAIN 04/09/24
aspirin 81 mg tablet,delayed 81 mg PO BID 04/09/24
release
bisacodyl 5 mg tablet,delayed 5 mg PO ONCE 04/09/24
release (Dulcolax (bisacodyl))
calcium 2,250 mg PO DAILY 04/09/24
celecoxib 100 mg capsule 100 mg PO BID 04/09/24
docusate sodium 100 mg capsule 100 mg PO BID 04/09/24
hydrochlorothiazide 12.5 mg tablet 12.5 mg PO DAILY 04/09/24
losartan 50 mg tablet 50 mg PO DAILY 04/09/24
Review of Systems
-
History Source: Patient
Constitutional: Reports No Symptoms
EENT: Reports No Symptoms
Respiratory: Reports No Symptoms
Cardiac: Reports No Symptoms
Abdomen/GI: Reports Abdominal Pain and Constipated
: Reports Difficulty Voiding
Musculoskeletal: Reports No Symptoms
Skin: Reports No Symptoms
Neurological: Reports No Symptoms
Vital Signs
Temp Pulse Resp BP Pulse Ox
98.6 F 94 18 164/84 95
04/10/24 07:05 04/10/24 07:05 04/10/24 07:05 04/10/24 07:05 04/10/24 07:05
Physical Exam
Exam
General: Well Developed, Well Nourished and Other (Appears in mild distress secondary to abdominal pain)
HEENT: Normocephalic, Anicteric and Atraumatic
Respiratory: Clear
Cardiac: S1/S2 and Regular Rhythm
Breast: Deferred by me
GI: Tender (Diffusely tender), Distended and Other (Hypoactive bowel sounds)
Rectal: Brown and Other (No fecal impaction, although with somewhat hard stool further up in the rectal vault; Dr. Oneill at the bedside during exam)
Musculoskeletal: No Edema
Skin: Warm and Dry
Neuro: Awake and Alert
Psych: Calm
Results
WBC 23.8 10^3/uL (4.8-10.8) H 04/10/24 07:39
Hgb 10.6 g/dL (12.0-16.0) L 04/10/24 07:39
Hct 29.6 % (37.0-47.0) L 04/10/24 07:39
MCV 77.7 fL (81.0-99.0) L 04/10/24 07:39
Plt Count 381 10^3/uL (130-400) 04/10/24 07:39
Absolute Neuts (auto) 23.6 10^3/uL (1.4-6.5) H 04/09/24 20:17
Sodium 129 mmol/L (135-145) L 04/10/24 07:39
Potassium 3.7 mmol/L (3.5-5.1) 04/10/24 07:39
Chloride 96 mmol/L (98-107) L 04/10/24 07:39
Carbon Dioxide 24 mmol/L (22-30) 04/10/24 07:39
BUN 15 mg/dl (7-17) 04/10/24 07:39
Creatinine 0.5 mg/dL (0.6-1.0) L 04/10/24 07:39
Calcium 9.0 mg/dl (8.4-10.2) 04/10/24 07:39
Total Bilirubin 1.0 mg/dl (0.2-1.3) 04/10/24 07:39
AST 21 U/L (14-36) 04/10/24 07:39
ALT 19 U/L (0-35) 04/10/24 07:39
Alkaline Phosphatase 82 U/L (38-126) 04/10/24 07:39
Diagnostic Image Results:
04/09/24 CT A/P w/IV contrast: IMPRESSION: Markedly limited evaluation of intestinal tract without oral contrast with some fluid-filled nondilated loops of small bowel particularly in the lower abdomen and true pelvis with some mild intervening
mesenteric stranding, without small bowel obstruction. Findings could represent small bowel enteritis. Sigmoid diverticulosis markedly limited without oral contrast. Cholelithiasis. Symmetric renal excretion. Nonspecific bilateral predominantly
symmetric perinephric stranding.
Prior GI Procedures:
EGD: none on file
Colonoscopy: Per patient had done several years ago out of the [facility] system, but incomplete prep and did not follow-up for a repeat colonoscopy.
Assessment / Plan
-
The pt is a 73-year-old female with a past medical history significant for hypertension, hyperlipidemia, breast cancer status post right breast lumpectomy, lumbar radiculopathy/sciatica, recent right knee replacement on 04/06/2024, osteoarthritis,
who presented to the emergency room with complaints of abdominal distention and pain, found to have significant hyponatremia with likely postoperative ileus and constipation based on CT imaging. Leukocytosis likely secondary to steroids that she
has been on postoperatively. She continues with abdominal distention and tenderness. X-ray of the abdomen is pending. Her hyponatremia is improving with IV fluids. Rectal exam did not reveal fecal impaction although with some hard stool further
up in the rectal vault unable to be removed. She has no prior history of constipation.
Problem list:
-Abdominal pain, likely ileus versus constipation
-Recent right total knee replaced 04/06/2024
-Leukocytosis, secondary to steroid
-Mild anemia, likely secondary to postoperative state without obvious signs of bleeding
Other pertinent medical history:
-Hypertension
-Hyperlipidemia
-History of breast cancer status postlumpectomy
-Lumbar radiculopathy/sciatica
-Osteoarthritis
Recommendations:
-Etiology abdominal pain likely secondary to postop ileus and constipation. CT imaging showing no overtly concerning findings but did reveal a large stool burden and ?enteritis. She has no diarrhea or vomiting.
-At this time we will give a milk and molasses enema x1 and Dulcolax p.o. 5 mg x 1 dose and evaluate for effectiveness
-If no improvement would repeat enema later today
-Will start on MiraLAX 17 g daily along with Colace 100 mg twice daily, which she uses down regularly until her bowels improve and she is back to baseline
-Discussed with orthopedics, pending PT consult which will help with her bowel
-Okay for small sips of clear liquids, and would advance if she is feeling improvement and she starts passing gas
-Will check an x-ray of the abdomen later today
-Further plan pending above
-
-
Thank you for consultation and allowing me to participate in the patient's care. Please call the technology applications consultant GI physician during the after hours with any questions or concerns.
[2024-04-10] MEDS: APRESOLINE 5 MG IV ×2 (10:34→23:22)
--- NOTE | 2024-04-10 10:46 | W.PN.UPDATE ---
Update Note
Progress Note Update
Rec'd report from Radiology- abdominal xray shows foci free air suspect perforated diverticulitis.
D/C enema and laxatives
Consult Colorectal Surgery
NPO
Start IV zosyn
--- NOTE | 2024-04-10 10:56 | W.PN.HOSP.TC ---
Today's Communication/Plan
-
IV abx
NPO
IVF
Pain control
Assessment / Plan
Assessment / Plan
General: distress due to pain
HEENT: NormoCephalic, Anicteric, [place] Conjunctivae, No Ptosis and Neck Nontender
Respiratory: Clear; No Wheezes, Rales or Rhonchi
Cardiac: S1/S2 and Regular Rhythm; No Murmur, Rub, Gallop or Peripheral Edema
GI: Distended, TTP throughout
Musculoskeletal: No Clubbing, No Cyanosis and Edema, Right Lower Extremity (Right knee with Aquacel dressing in place, surrounding healing ecchymosis with surrounding warmth of anterior thigh/medial thigh);
Skin: Warm and Dry; No Rash
Neuro: AO x 3, No Motor Deficits, Nonfocal/grossly intact, Cranial Nerves Intact and No Sensory Deficits; No Slurred Speech, Facial Droop, Tremors or Sedated
Psych: Anxious
Sepsis likely 2/2 suspected perforated sigmoid diverticulitis
-Was constipated prior to arrival. Patient is status post right knee replacement surgery
- underwent CT abdomen pelvis without contrast on admission and underwent abdominal x-ray this morning.
-Abdominal x-ray with small foci of free air in the abdomen compared to CAT scan on admission may be bases on perforated sigmoid diverticulitis
-DC all laxatives enema per GI.
-Strict NPO. Will start gentle IV fluids. IV broad-spectrum antibiotics with Zosyn.
-Avoid hypotension. DC'd blood pressure medication
-Colorectal surgery consulted
#Hyponatremia hypervolemic poss siadh/ pian / polydypsia
NA 122-->129
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
-Sodium improved
#s/p Right knee replacement 04/07/2024
-Orthopedic not concern for infection.
-Continue with postop management.
#Hypertensive urgency uncontrolled secondary to abdominal pain
DC p.o. medication due to above. IV as needed medication.
#Postop anemia
Hgb 10.8 was 12.4 on 03/09/2024
#HLD
no meds
#Anxiety
no current meds
Other PMH:
Chronic cervical radicular pain
Chronic sciatica
Breast cancer status post right breast lumpectomy
DVT prophylaxis
SCDs
Full code
d/w with radiologist, GI and CRS PA.
Discussed with patient spouse at bedside in detail.
Anticipated Discharge: > 48 hours
Subjective/Interval History
-
Date of Service: April 10, 2024
States of severe abd pain
has not improved
Objective Data
-
Labs:
Laboratory Results
04/10/24
07:39
WBC 23.8 H
Hgb 10.6 L
Hct 29.6 L
Plt Count 381
Sodium 129 L
Potassium 3.7
Chloride 96 L
Carbon Dioxide 24
BUN 15
Creatinine 0.5 L
Glucose 92
Calcium 9.0
Total Bilirubin 1.0
AST 21
ALT 19
Alkaline Phosphatase 82
Vital Signs:
Vital Signs
Temp Pulse Resp BP Pulse Ox
98.6 F 94 18 164/84 95
04/10/24 07:05 04/10/24 10:34 04/10/24 07:05 04/10/24 10:34 04/10/24 07:05
I&O
04/09/24 04/10/24 04/11/24
06:59 06:59 06:59
Output Total 1300 / 1300 500 / 500
Balance -1300 / -1300 -500 / -500
Data Reviewed
-
Total Time Spent with Patient (in minutes): 62
[2024-04-10] MEDS: MORPHINE SULFATE 1 MG IV (11:33)
[2024-04-10] MEDS: ZOSYN 50 IV ×2 (11:34→17:43)
[2024-04-10] MEDS: LR 1000 IV (11:34)
--- NOTE | 2024-04-10 12:22 | CON.CRS ---
Consultation
-
Requesting Provider: Dahiana
Performing Provider: Jessica Wright
Medical History
-
Chief Complaint: abdominal pain
History of Present Illness:
Ms. Thompson is a 73 yo female who underwent Right TKR earlier this week (04/06) and discharged home with PO steroids, analgesics and bowel regimen who is seen today in consult for evaluation of severe abdominal pain. She was initially doing well post
operatively, but she notes she has had some constipation post operatively. She been passing small, hard stools. She denies nausea or vomiting. She denies hematochezia or hematemesis. She notes that yesterday at home, she developed sudden severe pain
which has persisted since that time in her lower abdomen mostly on the left. She noted burning with urination at home and has required straight cath this morning for urinary retention. On exam, her abdomen is tender throughout with guarding. More
severe to the bilateral lower quadrants. She is sleepy and attributes this to pain and notes inadequate relief with current pain regimen.
Past Medical History
Past Medical History: Cancer (breast: lumpectomy), HTN, Hypercholesterolemia and Other (Lumbar radiculopathy/sciatica, anxiet)
Past Surgical History: Orthopedic (right TKA 04/06/24, left TKR, right shoulder bone spur )
Social History
Tobacco: Non-Smoker
Alcohol: None
Family History
Family History: Reviewed & Not Pertinent
Allergies / Home Medications
Allergy/AdvReac Type Severity Reaction Status Date / Time
amoxicillin [From Augmentin] Allergy Unknown Unknown Verified 04/06/24 21:37
clavulanic acid Allergy Unknown Unknown Verified 04/06/24 21:37
[From Augmentin]
erythromycin base Allergy Unknown Unknown Verified 04/06/24 21:37
[place]-NRU-CsR Reductase Allergy Unknown Unknown Verified 04/06/24 21:37
Inhibitor
�Medication �Instructions �Recorded �Confirmed �Type
acetaminophen 500 mg tablet 1,000 mg PO Q6H PRN MILD PAIN 04/09/24 04/09/24 History
aspirin 81 mg tablet,delayed 81 mg PO BID 04/09/24 04/09/24 History
release
bisacodyl 5 mg tablet,delayed 5 mg PO ONCE 04/09/24 04/09/24 History
release (Dulcolax (bisacodyl))
calcium 2,250 mg PO DAILY 04/09/24 04/09/24 History
celecoxib 100 mg capsule 100 mg PO BID 04/09/24 04/09/24 History
docusate sodium 100 mg capsule 100 mg PO BID 04/09/24 04/09/24 History
hydrochlorothiazide 12.5 mg tablet 12.5 mg PO DAILY 04/09/24 04/09/24 History
losartan 50 mg tablet 50 mg PO DAILY 04/09/24 04/09/24 History
Review of Systems
-
History Source: Patient and Family
All other systems: Negative unless noted
A 10 point review of systems was completed, and was negative except as per HPI.
Physical Exam
Vital Signs
Temp 98 F 04/10/24 11:05
Pulse 100 04/10/24 11:05
Resp Rate 18 04/10/24 11:05
Blood pressure 155/83 04/10/24 11:05
SaO2 96 04/10/24 11:05
04/09/24 04/10/24 04/11/24
06:59 06:59 06:59
Actual Weight 75.977 kg
Body Mass Index (BMI) 29.7
Lab Results / Allergies
04/10/24 07:39
04/10/24 07:39
WBC 23.8 10^3/uL (4.8-10.8) H 04/10/24 07:39
Hgb 10.6 g/dL (12.0-16.0) L 04/10/24 07:39
Hct 29.6 % (37.0-47.0) L 04/10/24 07:39
Plt Count 381 10^3/uL (130-400) 04/10/24 07:39
Abs Immat Gran (auto) 0.3 10^3/uL (0-0.05) H 04/09/24 20:17
Neutrophils % 88.3 % (42.2-75.2) H 04/09/24 20:17
Allergy/AdvReac Type Severity Reaction Status Date / Time
amoxicillin [From Augmentin] Allergy Unknown Unknown Verified 04/06/24 21:37
clavulanic acid Allergy Unknown Unknown Verified 04/06/24 21:37
[From Augmentin]
erythromycin base Allergy Unknown Unknown Verified 04/06/24 21:37
Djualmt-UEU-IrU Reductase Allergy Unknown Unknown Verified 04/06/24 21:37
Inhibitor
Physical Exam
General: Well Developed and Well Nourished
HEENT: Moist Mucous Membranes
Respiratory: Non Labored Respirations
GI: Soft, Tender (throughout L>R) and Distended (mild)
Skin: Warm and Dry
Neuro: Awake, Alert and AO x 3
Psych: Calm
Data Reviewed
-
CT Scan: Image Personally Visualized and interpreted, Report Reviewed by me, Discussed with Physician, Discussed with Nurse, Discussed with Patient and Discussed with Family
Labs: Labs Reviewed by me, Discussed with Physician, Discussed with Nurse, Discussed with Patient and Discussed with Family
Assessment / Plan
-
This is a 73 yo female who underwent Right TKR earlier this week (04/06) and discharged to home on PO steroids as part of pain regimen. She presented yesterday with severe abdominal pain and is seen today in evaluation given persistent pain and
abnormal imaging. CT and XR reviewed with findings consistent with sigmoid diverticulitis complicated by small perforation. No abscess seen on initial CT. Abdomen is soft and diffusely tender, worse to the left/suprapubic abdomen. Acute urinary
retention noted this am requiring straight cath. AFVSS. Leukocytosis present and trending up. Steroids have been discontinued.
No plans for emergent surgery today, will follow closely for improvement on antibiotics. If surgery is required in the setting of acute inflammation, would likely need diverting ostomy which was discussed with patient and . Wishing to hold
off at this time and follow with medical management which is reasonable given her medical stability and exam.
--Antibiotics changed to Zosyn today, would continue
--Keep NPO for bowel rest
--Analgesics adjusted: Toradol 10mg q6h scheduled, prn Ofirmev and dilaudid. Antiemetics prn.
--Will follow labs, fever trend and exams closely. May require surgery this admission if no improvement
--Follow bladder scans and place hayes if retention persists
--VTE ppx with lovenox 40mg Sq, SCD's
[2024-04-10] MEDS: TORADOL 10 MG IV ×2 (13:12→17:43)
[2024-04-10] MEDS: LOVENOX 40 MG SC (17:39)
[2024-04-11] VITALS (19 sets, daily range): BP systolic 91–165; BP diastolic 58–91
[2024-04-11] MEDS: TORADOL 10 MG IV ×4 (00:42→17:14)
[2024-04-11] MEDS: ZOSYN 50 IV ×4 (00:42→17:20)
[2024-04-11] MEDS: LR 1000 IV ×2 (00:45→15:02)
--- NOTE | 2024-04-11 03:30 | PTCARENOTE ---
Pt BP at 2315 was 164/83. PRN Hydralazine 5mg IV given. Recheck BP was 162/79. Pt reports no HTN related symptoms, just pain in her abdomen. Scheduled dose of IV Toradol 10mg given. See DEC. Recheck 159/78. VIBRATION ANALYST aware. Patient resting comfortably in
bed, call maddox within reach.
[2024-04-11] MEDS: CARDIZEM 10 MG IV (07:40)
--- NOTE | 2024-04-11 08:00 | PTCARENOTE ---
Patient went into afib with RVR at 0716; ECG was done and MD notified. New orders for Cardizem push followed by drip. Orders received to transfer pat. to IMU.
[2024-04-11 08:48] LABS: % Basophils 0.1 % (0-2); % Immature Granulocytes 0.7 % (0-0.5); % Lymphocytes 3.2 % (20.5-51.1); % Monocytes 2.3 % (1.7-9.3); % Neutrophils 93.7 % (42.2-75.2); Absolute Immature Granulocytes 0.2 10^3/uL (0-0.05); Absolute Lymphocytes 0.7 10^3/uL (1.2-3.4); Absolute Monocytes 0.5 10^3/uL (0.1-0.6); Absolute Neutrophils 21.7 10^3/uL (1.4-6.5); Hematocrit 26.9 % (37.0-47.0); Mean Corp Hgb Conc. 33.5 g/dL (33.0-37.0); Mean Corpuscular Hgb 27.2 pg (27.0-31.0); Mean Corpuscular Volume 81.3 fL (81.0-99.0); Nucleated Red Blood Cells % 0 %; Platelet Count 333 10^3/uL (130-400); Red Blood Cell Count 3.31 10^6/uL (4.20-5.40); White Blood Cell Count 23.2 10^3/uL (4.8-10.8)
[2024-04-11] MEDS: CARDIZEM 125 IV ×2 (09:00→21:40)
[2024-04-11 09:12] LABS: ALT (SGPT) 12 U/L (0-35); AST (SGOT) 15 U/L (14-36); Albumin 2.6 g/dl (3.5-5.0); Alkaline Phosphatase 92 U/L (38-126); Blood Urea Nitrogen 16 mg/dl (7-17); Calcium 8.2 mg/dl (8.4-10.2); Carbon Dioxide 23 mmol/L (22-30); Chloride 97 mmol/L (98-107); Estimated Creatinine Clearance 70 ml/min; Glucose 73 mg/dl (70-99); Potassium 3.2 mmol/L (3.5-5.1); Sodium 130 mmol/L (135-145); Total Bilirubin 1.3 mg/dl (0.2-1.3); Total Protein 4.8 g/dl (6.3-8.2); eGFR > 60.00
--- NOTE | 2024-04-11 09:20 | CM ---
met with patient at bedside.patient lives with significant other in house with 3te,hr bed and bath is on the second level,she amb with a walker .patient is I bathing and has a walk in shower,her pcp is dr chris elliott and she uses [facility] in [place].patient has been seen by [facility] post tka,she has never had an episode of ip rehab.
patient with hx of htn,breast ca sp lumpectomy,right tka on 04/06 is adm with inc wbc/sbo.she is npo,ivf,iv zosyn.she attends op pt through [facility].Plan:patient will dc home with no hc and resume op therapy for her tka.
--- NOTE | 2024-04-11 09:41 | W.PN.ORTHO ---
Today's Communication / Plan
-
Patient with diverticulitis. Right knee replacement stable.
Appreciate input from consultants.
Hopefully, patient will respond to intravenous antibiotics. May need surgical treatment.
Will continue to follow.
Assessment
.
Distal Motor Intact: Yes
Dressing:
Clean, dry and intact.
Plan
.
Surgery / Date: S/P R TKA 04/06
Discharge Plan: Home
Subjective
.
.:
Patient resting comfortably. Still with significant abdominal distension.
Vital Signs and Labs
.
Vital Signs and Labs:
Lab Results
04/11/24 07:15
04/11/24 07:15
Temp Pulse Resp BP Pulse Ox
98 F 142 14 163/85 94
04/11/24 07:05 04/11/24 07:40 04/11/24 07:05 04/11/24 07:40 04/11/24 07:05
--- NOTE | 2024-04-11 09:54 | PTCARENOTE ---
0950 - Cardizem drip increased from 5 mg/hr to 10 mg/ hr as per protocol as heart rate is still between 130s to 160s. Patient remains asymptomatic.
--- NOTE | 2024-04-11 10:16 | W.PN.CRS1 ---
Addendum entered and electronically signed by Yury Wright MD 04/11/24 15:49:
I saw and examined the patient.
The DESIGN CONSULTANT's note was reviewed and I agree with the note.
Comment:
73-year-old female with PMH of HTN, sciatica, breast cancer s/p lumpectomy, anxiety and recent right R TKR on 04/06/24 who presents with 1 day of acute abdominal pain, never happened to her before; associated with constipation (BM's were small and
hard), no N/V, CP/SOB no urinary symptoms; WBC 26.7, CT�initially read as inflammation of the bowel mesentery, but reviewed by radiology 04/10 noting flecks of free air in the left abdomen associated with diverticulitis, no free fluid or abscess;
patient was initially admitted with concern of significant constipation, but re-read of CT confirms perforated diverticulitis
04/11 - went into afib w/ RVR, s/p dilt and now rate-controlled
AFVSS, ABD soft, mildly distended, moderately tender in the lower abdomen greatest in the LLQ, significantly improved from yesterday, guarding now voluntary, still no rebound
WBC 23.2 from 23.8
� Continue nonoperative measures; she did go into A-fib with RVR, but otherwise improving clinically, especially with her abdominal exam; reviewed risks of surgery versus no surgery and discussed if surgery is avoided, there is a risk of developing
abscess due to perforation; and understood and agreed with nonoperative measures/close monitoring and understood there is still the possible need for surgery this admission
� Continue n.p.o., okay for p.o. meds
� Continue IV fluid resuscitation
� Continue IV Zosyn
� Appreciate cards; transferred to IMU, cont dilt gtt, now rate-controlled
-Hold therapeutic AC in case surgery becomes necessary
� Cont DVT PPx with Lovenox
� Continue pain control with Tylenol, Toradol and Dilaudid 0.5/1 mg as needed
� Appreciate hospitalist
Original Note:
Today's Communication / Plan
-
Continue NPO
Continue ABX
Assessment/Plan
-
73 yo female who underwent Right TKR (04/06) and was discharged to home on PO steroids as part of pain regimen. She presents this admission with severe abdominal pain
CT�initially read as inflammation of the bowel mesentery, but re-reviewed by radiology on 04/10 and noting flecks of free air in the left abdomen associated with diverticulitis, no free fluid or abscess. Zosyn was started.
Rapid afib early this morning, with transfer to IMU, subsequently converted to NSR
Exam mildly improved this am: less generalized tenderness to abdomen, more severe to LLQ. She is more alert today. Reports she feels mildly better.
No n/v. No flatus/bm
Mas placed on 04/10 for acute retention
Afebrile but with persistent leukocytosis.
Following closely, no emergent plan for surgery. She remains afebrile and hemodynamically stable, without peritonitis and somewhat improved; however, she is significantly tender with an very elevated WBC with new onset Afib/rvr this am
� Continue n.p.o., okay for p.o. meds
� Continue IV fluid
� Continue IV Zosyn q6h
- Arrhythmia management as per cardiology. Hold PO AC at this time, ok for heparin gtt if deemed necessary by cardiology.
� Continue pain control with Tylenol, Toradol and Dilaudid 0.5/1 mg as needed
� Recommend DVT PPx with Lovenox
� Appreciate hospitalist
Subjective Data
Subjective Data
Date of Service: April 11, 2024
Patient seen and examined at bedside with Dr. Wright at 0815. Much more alert today. Stating she is very annoyed that she is in bed, her shoulders hurt. She denies worsening pain. She denies n/v. No passage of flatus/stool.
Objective Data
-
Vital Signs
Temp Pulse Resp BP Pulse Ox
98 F 142 14 163/85 94
04/11/24 07:05 04/11/24 07:40 04/11/24 07:05 04/11/24 07:40 04/11/24 07:05
Intake & Output
04/10/24 04/11/24 04/12/24
06:59 06:59 06:59
Intake Total 960 / 960
Output Total 1300 / 1300 1100 / 1100
Balance -1300 / -1300 -140 / -140
Intake:
IV fluids (Total) 960 / 960
Output:
Urine, Mas 600 / 600
Urine, Voided 1300 / 1300
Straight cath output 500 / 500
Other:
Number of unmeasured voidings 2
Number of approximated MODERATE 1
amounts of urine
Lab Results
04/11/24 07:15
04/11/24 07:15
Physical Exam
-
General: No Acute Distress
HEENT: Grossly Normal
Abdomen: Soft, Distended (mild), Tender (generalized mild to mod with more significant tenderness to LLQ) and Guarding
Skin: Warm and Dry
--- NOTE | 2024-04-11 10:20 | PTCARENOTE ---
1015: Cardizem gtt rate increased to 15 ml/hr as heart rate was still sitting in 130's at rest.
--- NOTE | 2024-04-11 10:29 | CON.CAR ---
Addendum entered and electronically signed by Lisa Langley DO 04/11/24 11:51:
Correction: Will start Lopressor 2.5 mg IV every 6 as patient is n.p.o.
Original Note:
Consultation
Consultation Request
Date/Time Consultation Requested: 04/11/24
Date/Time Consultation Performed: 04/11/24
Requesting Provider: Dr. Talbot
Performing Provider: Dr. Langley
Reason for Consultation: new rapid AF
Medical History
-
Chief Complaint: abd pain
History of Present Illness:
I had the pleasure to meet Jonas Thompson in 2122 for evaluation of new rapid atrial fibrillation. She is accompanied today by her significant other, Danis. Jonas is a 73-year-old female with a past medical history of hypertension, dyslipidemia who
reports reaction to Zocor and has declined trial of other lipid-lowering therapy, breast cancer status post lumpectomy, lumbar radiculopathy, osteoarthritis, right shoulder bone spur with chronic pain, left total knee replacement, and more recently
a right total knee replacement 04/06/[address] Zuniga. She has not previously seen cardiology. Her significant other, Danis, does have atrial fibrillation and is followed by cardiology at [place]. She presented to [facility] with
severe abdominal pain and postop constipation found to have sigmoid diverticulitis complicated by small perforation by CT and x-ray imaging. There was no abscess seen on initial CT per surgery. She also had acute urinary retention requiring
straight cath. She was made n.p.o. for bowel rest and placed on IV antibiotics. Colorectal surgery is following however there is no urgent plan for surgery. This morning around 7 AM she was noted to be in rapid atrial fibrillation which is a new
diagnosis. Fortunately, she denies tachycardia or palpitations. She denies chest pain or shortness of breath. She was started on IV Cardizem drip following an IV Cardizem bolus and is currently on an infusion of 15 mg/h with heart rates still in
the 140s�160s.
Past medical/surgical history: Hypertension, untreated dyslipidemia/reaction to Zocor and has declined trial of other lipid-lowering therapy, right breast cancer status post lumpectomy, lumbar spine disease status post right L3-4, L4-5 ILESI in
2022, left total knee replacement surgery 04/08/2023, right total knee replacement surgery 04/06/2024, right shoulder pain/bone spur.
Past Medical History
Past Medical History: Other (See HPI)
Past Surgical History: Other (See HPI)
Social History
Tobacco: Non-Smoker
Alcohol: Other (Rare alcohol use)
Drug: None
Personal: Other (Significant other, Gene)
Living: With Family
Employment: Retired
Family History
Family History: Other (No family history for atrial fibrillation)
Allergies / Home Medications
Allergy/AdvReac Type Severity Reaction Status Date / Time
amoxicillin [From Augmentin] Allergy Unknown Unknown Verified 04/06/24 21:37
clavulanic acid Allergy Unknown Unknown Verified 04/06/24 21:37
[From Augmentin]
erythromycin base Allergy Unknown Unknown Verified 04/06/24 21:37
Oivygbq-OCV-LqR Reductase Allergy Unknown Unknown Verified 04/06/24 21:37
Inhibitor
�Medication �Instructions �Recorded �Confirmed �Type
acetaminophen 500 mg tablet 1,000 mg PO Q6H PRN MILD PAIN 04/09/24 04/09/24 History
aspirin 81 mg tablet,delayed 81 mg PO BID 04/09/24 04/09/24 History
release
bisacodyl 5 mg tablet,delayed 5 mg PO ONCE 04/09/24 04/09/24 History
release (Dulcolax (bisacodyl))
calcium 2,250 mg PO DAILY 04/09/24 04/09/24 History
celecoxib 100 mg capsule 100 mg PO BID 04/09/24 04/09/24 History
docusate sodium 100 mg capsule 100 mg PO BID 04/09/24 04/09/24 History
hydrochlorothiazide 12.5 mg tablet 12.5 mg PO DAILY 04/09/24 04/09/24 History
losartan 50 mg tablet 50 mg PO DAILY 04/09/24 04/09/24 History
Review of Systems
-
History Source: Patient
All other systems: Negative unless noted
Constitutional: Fatigue
EENT: No Symptoms
Respiratory: No Symptoms
Cardiac: No Symptoms
Abdomen/GI: Abdominal Pain, Constipated and Other (Currently being treated for perforated sigmoid diverticulitis )
: Other (No dysuria but had acute urinary retention requiring straight cath)
Musculoskeletal: Joint Pain, Muscle Pain, Muscle Stiffness and Other (Mild knee pain status post right total knee replacement surgery 04/06/2024)
Neurological: No Symptoms
Endocrine: No Symptoms
Hematologic/Lymphatic: No Symptoms
Physical Exam
Vital Signs
Temp Pulse Resp BP Pulse Ox
98 F 142 14 163/85 94
04/11/24 07:05 04/11/24 07:40 04/11/24 07:05 04/11/24 07:40 04/11/24 07:05
Lab Results
04/11/24 07:15
04/11/24 07:15
Physical Exam
General: Well Developed, Well Nourished and Other (Mild discomfort secondary to pain)
HEENT: Normocephalic, Anicteric and Moist Mucous Membranes
Respiratory: Clear and Non Labored Respirations; Negative Wheezes, Crackles or Rhonchi
Cardiac: S1/S2 and Irregular Rhythm; Negative Murmur, Rub or Peripheral Edema
GI: Tender and Distended
Musculoskeletal: No Edema and Other (Swelling of right knee with mild ecchymosis status post right total knee replacement 04/06/2024. Incision clean dry and intact. SCDs present bilaterally. No ankle edema bilaterally.)
Neuro: AO x 3 and Nonfocal/Grossly Intact
Psych: Calm
Impression / Plan
-
Education Program Specialist: None, initially seen by Dr. Langley
Impression:
Asymptomatic rapid atrial fibrillation, new diagnosis as of 04/11/2024
Perforated sigmoid diverticulitis 04/06/2024
Hyponatremia
Postoperative anemia following right total knee replacement surgery: Hemoglobin 12.4 and 03/09/2024, currently 10.8
Hyperlipidemia
Hypertension
Osteoarthritis status post left total knee replacement surgery in 2022. Status post right total knee replacement surgery 04/06/2024
Lumbar spine disease with radiculopathy
History of right breast cancer status postlumpectomy
EKG 03/09/2024: Normal sinus rhythm with moderate LVH by voltage. Borderline EKG
EKG 04/11/2024: Atrial fibrillation with RVR, heart rate [address]-T wave abnormality, consider inferior ischemia.
Plan:
Newly diagnosed rapid atrial fibrillation 04/11/2024 in the setting of sepsis/perforated sigmoid diverticulitis and recent right total knee replacement surgery (04/06/24)
-Fortunately patient is asymptomatic and hemodynamically stable
-Agree with your addition of IV Cardizem which is now at the maximum rate with rapid heart rates.
-Will add Lopressor 25 mg every 6 hours
-Monitor on telemetry
-Check TSH
-Treatment of infection and pain with close monitoring for need to proceed to the OR with colorectal surgery
-We reviewed diagnosis of atrial fibrillation, pathophysiology, potential complications and symptoms, treatment options, and stroke risk as well as stroke risk reduction
-Hopefully patient will convert quickly to sinus rhythm however if she remains in atrial fibrillation plan would be for rate control strategy until she is recovered
-[id number] score 3 [female, hypertension, age between 65-74 years. We discussed eventual oral anticoagulation for stroke risk reduction. She seems very hesitant about taking any medications and I reviewed risks and benefits.
-If no surgical intervention is required for abdominal process, would start oral anticoagulation with Eliquis 5 mg twice daily.
-Would hold anticoagulation for now awaiting for her to declare whether she will require surgery. Communicated and will follow closely with colorectal surgery
-Discussed with Dr. Zuniga, orthopedics and from postoperative total knee replacement standpoint no contraindications to anticoagulation
Case discussed with nursing, hospitalist, colorectal surgery and orthopedics
Answered all patient and family related questions
Will follow with you
Data Reviewed
-
EKG: Tracing Personally Visualized and interpreted
Radiology: Report Reviewed by me
CT Scan: Report Reviewed by me
Medical Tests (Nuc Med, Echo etc): Report Reviewed by me
Labs: Labs Reviewed by me
Old Records: Reviewed
--- NOTE | 2024-04-11 10:29 | W.PN.HOSP.TC ---
Today's Communication/Plan
-
Start Cardizem infusion
Transfer to IMU
Continue with IV fluids
Continue with broad-spectrum antibiotics
Colorectal recommendation
Assessment / Plan
Assessment / Plan
General: distress due to pain
HEENT: NormoCephalic, Anicteric, [place] Conjunctivae, No Ptosis and Neck Nontender
Respiratory: Clear; No Wheezes, Rales or Rhonchi
Cardiac: S1/S2 and irregularly irregular, tachycardic
GI: Distended, TTP throughout
Musculoskeletal: No Clubbing, No Cyanosis and Edema, Right Lower Extremity (Right knee with Aquacel dressing in place, surrounding healing ecchymosis with surrounding warmth of anterior thigh/medial thigh);
Skin: Warm and Dry; No Rash
Neuro: AO x 3, No Motor Deficits, Nonfocal/grossly intact, Cranial Nerves Intact and No Sensory Deficits; No Slurred Speech, Facial Droop, Tremors or Sedated
Psych: Anxious
Sepsis likely 2/2 suspected perforated sigmoid diverticulitis
-Was constipated prior to arrival. Patient is status post right knee replacement surgery
- underwent CT abdomen pelvis without contrast on admission and underwent abdominal x-ray this morning.
-Abdominal x-ray with small foci of free air in the abdomen compared to CAT scan on admission may be bases on perforated sigmoid diverticulitis
-DC all laxatives enema per GI.
-Strict NPO. Will start gentle IV fluids. IV broad-spectrum antibiotics with Zosyn.
-Avoid hypotension. DC'd blood pressure medication
-Continue to monitor closely. Timing of surgery to be decided. Plan for conservative management. Remains with abdominal pain and severe leukocytosis
-Colorectal surgery consulted
New onset of atrial fibrillation with rapid ventricular response
-Status post 10 mg of Cardizem and started on Cardizem infusion
-Discussed with orthopedic-okay to start patient on full dose of anticoagulation from orthopedic perspective with recent knee surgery. Discussed with Dr. Zuniga on 04/11/2024.
-Will await further input from colorectal
-Echo pending stabilization of heart rate.
-Cardiology consulted
#Hyponatremia hypervolemic poss siadh/ pian / polydypsia
NA 122-->130
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
-Sodium improved
#s/p Right knee replacement 04/07/2024
-Orthopedic not concern for infection.
-Continue with postop management.
#Hypertensive urgency uncontrolled secondary to abdominal pain
DC p.o. medication due to above. IV as needed medication.
#Postop anemia
Hgb 10.8 was 12.4 on 03/09/2024
#HLD
no meds
#Anxiety
no current meds
Other PMH:
Chronic cervical radicular pain
Chronic sciatica
Breast cancer status post right breast lumpectomy
DVT prophylaxis
SCDs
Full code
Discussed with colorectal and orthopedic
Discussed with patient spouse at bedside in detail.
Anticipated Discharge: > 48 hours
Subjective/Interval History
-
Date of Service: April 11, 2024
This patient went to atrial fibrillation rapid ventricle response
Patient still remains with abdominal pain
Patient requesting enema for bowel movement state that should help with her current situation-recommended highly against it as it is contraindicated currently.
Objective Data
-
Labs:
Laboratory Results
04/11/24
07:15
WBC 23.2 H
Hgb 9.0 L
Hct 26.9 L
Plt Count 333
Sodium 130 L
Potassium 3.2 L
Chloride 97 L
Carbon Dioxide 23
BUN 16
Creatinine 0.7
Glucose 73
Calcium 8.2 L
Total Bilirubin 1.3
AST 15
ALT 12
Alkaline Phosphatase 92
Vital Signs:
Vital Signs
Temp Pulse Resp BP Pulse Ox
98 F 142 14 163/85 94
04/11/24 07:05 04/11/24 07:40 04/11/24 07:05 04/11/24 07:40 04/11/24 07:05
I&O
04/10/24 04/11/24 04/12/24
06:59 06:59 06:59
Intake Total 960 / 960
Output Total 1300 / 1300 1100 / 1100
Balance -1300 / -1300 -140 / -140
Data Reviewed
-
Total Time Spent with Patient (in minutes): 65
[2024-04-11] MEDS: KCL 270 MEQ IV (10:57)
[2024-04-11] MEDS: LOPRESSOR 2.5 MG IV ×2 (12:15→17:11)
--- NOTE | 2024-04-11 13:03 | PTCARENOTE ---
Addendum entered by Emili Hawley RN 04/11/24 13:05:
HR currently 90s.
Original Note:
Received patient on transfer from with cardizem infusing at 15mg/hr, Potassium rider infusion and LR. Patient transferred to new bed; c/o abdominal tenderness to touch. HR initially 120s-130s; currently 116. Lopressor administered as ordered.
Patient was due for zosyn at noon; alert popped up regarding allergy and not being verified by pharmacy. This nurse spoke with pharmacist who verified; med given as ordered.
--- NOTE | 2024-04-11 14:56 | W.PN.GI.CBS2 ---
Today's Communication / Plan
-
Cont NPO, abx
Appears stable, improved
Hopefully can be managed nonoperatively
Appreciate Colorectal Surgery management
Assessment / Plan
-
The pt is a 73-year-old female with a past medical history significant for hypertension, hyperlipidemia, breast cancer status post right breast lumpectomy, lumbar radiculopathy/sciatica, recent right knee replacement on 04/06/2024, osteoarthritis,
who presented to the emergency room with complaints of abdominal distention and pain, found to have significant hyponatremia with likely postoperative ileus and constipation based on CT imaging. Leukocytosis likely secondary to steroids that she
has been on postoperatively. She continues with abdominal distention and tenderness. X-ray of the abdomen is pending. Her hyponatremia is improving with IV fluids. Rectal exam did not reveal fecal impaction although with some hard stool further
up in the rectal vault unable to be removed. She has no prior history of constipation.
Problem list:
-Abdominal pain
-Possible perorated sigmoid diveritculitis. Few small foci free air in abdomen reported on xray in correlation with CT
-Recent right total knee replaced 04/06/2024
-Leukocytosis, secondary to steroid
-Mild anemia, likely secondary to postoperative state without obvious signs of bleeding
Other pertinent medical history:
-Hypertension
-Hyperlipidemia
-History of breast cancer status postlumpectomy
-Lumbar radiculopathy/sciatica
-Osteoarthritis
Subjective
Subjective
Date of Service: April 11, 2024
Feeling better today. Less abd pain. No flatus or BM
Objective
Data Reviewed
Laboratory Data:
Laboratory Results
04/11/24 07:15
04/11/24 07:15
Laboratory Results
Total Bilirubin 1.3 mg/dl (0.2-1.3) 04/11/24 07:15
AST 15 U/L (14-36) 04/11/24 07:15
ALT 12 U/L (0-35) 04/11/24 07:15
Alkaline Phosphatase 92 U/L (38-126) 04/11/24 07:15
Vital Signs and I&O:
Vital Signs
Temp Pulse Resp BP Pulse Ox
98 F 85 20 136/75 92
04/11/24 07:05 04/11/24 14:45 04/11/24 14:45 04/11/24 14:00 04/11/24 14:45
I&O
04/10/24 04/11/24 04/12/24
06:59 06:59 06:59
Intake Total 960 / 960
Output Total 1300 / 1300 1100 / 1100
Balance -1300 / -1300 -140 / -140
Physical Exam
Physical Exam
GI: Soft, Non Distended and Tender (less tender than yesterday. No rebound)
[2024-04-11] MEDS: LOVENOX 40 MG SC (17:11)
--- NOTE | 2024-04-11 19:55 | PTCARENOTE ---
Addendum entered by Lavonne Hernandez RN 04/12/24 06:06:
Pt refusing turning. Pt stating she was told by the Dr that she was not to make big movements due to her Possible perorated diverticulitis. Pt was able to shift weight while in bed.
Original Note:
Assumed care of Pt from day RN. Pt on Cardizem gtt 5mg/hr. Pt converting to SR, EKG to confirm. Trevor VYAS made aware, Pt continuing on Cardizem gtt at 5mg/hr Q6 Lopressor parameters added.
[2024-04-12] VITALS (18 sets, daily range): BP systolic 105–184; BP diastolic 60–101; PULSE 74; O2SAT 95
[2024-04-12] MEDS: LOPRESSOR 2.5 MG IV ×4 (00:07→17:09)
[2024-04-12] MEDS: TORADOL 10 MG IV ×4 (00:08→17:11)
[2024-04-12] MEDS: ZOSYN 50 IV ×4 (00:11→17:17)
[2024-04-12] MEDS: LR 1000 IV (04:19)
[2024-04-12 05:50] LABS: % Basophils 0.2 % (0-2); % Eosinophils 0.5 % (0-6); % Immature Granulocytes 1.6 % (0-0.5); % Monocytes 3.5 % (1.7-9.3); % Neutrophils 90.2 % (42.2-75.2); Absolute Eosinophils 0.1 10^3/uL (0-0.7); Absolute Immature Granulocytes 0.4 10^3/uL (0-0.05); Absolute Lymphocytes 0.9 10^3/uL (1.2-3.4); Absolute Monocytes 0.8 10^3/uL (0.1-0.6); Absolute Neutrophils 19.9 10^3/uL (1.4-6.5); Hemoglobin 9.3 g/dL (12.0-16.0); Mean Corp Hgb Conc. 34.4 g/dL (33.0-37.0); Mean Corpuscular Hgb 27.3 pg (27.0-31.0); Mean Corpuscular Volume 79.2 fL (81.0-99.0); Mean Platelet Volume 9.5 fL (7.4-10.4); Nucleated Red Blood Cells % 0 %; Platelet Count 363 10^3/uL (130-400); Red Blood Cell Count 3.41 10^6/uL (4.20-5.40); Red Cell Dist. Width 14.3 % (11.5-14.5)
[2024-04-12 06:05] LABS: ALT (SGPT) 12 U/L (0-35); AST (SGOT) 15 U/L (14-36); Albumin 2.7 g/dl (3.5-5.0); Alkaline Phosphatase 106 U/L (38-126); Blood Urea Nitrogen 19 mg/dl (7-17); Calcium 8.5 mg/dl (8.4-10.2); Carbon Dioxide 24 mmol/L (22-30); Chloride 100 mmol/L (98-107); Estimated Creatinine Clearance 70 ml/min; Glucose 88 mg/dl (70-99); Potassium 3.4 mmol/L (3.5-5.1); Sodium 133 mmol/L (135-145); Total Bilirubin 1.6 mg/dl (0.2-1.3); Total Protein 5.2 g/dl (6.3-8.2); eGFR > 60.00
[2024-04-12 06:37] LABS: TSH Reflex To Free T4 2.95 uIU/ml (0.47-4.68)
--- NOTE | 2024-04-12 06:41 | W.PN.GI.CBS2 ---
Today's Communication / Plan
-
Passing flatus now
Diet advancement per Colorectal surgery
At this point, will defer management to Surgery and sign off.
Please call back if needed
Pt wishes to follow up with me in office. Contact left on Discharge instructions
Assessment / Plan
-
The pt is a 73-year-old female with a past medical history significant for hypertension, hyperlipidemia, breast cancer status post right breast lumpectomy, lumbar radiculopathy/sciatica, recent right knee replacement on 04/06/2024, osteoarthritis,
who presented to the emergency room with complaints of abdominal distention and pain, found to have significant hyponatremia with likely postoperative ileus and constipation based on CT imaging. Leukocytosis likely secondary to steroids that she
has been on postoperatively. She continues with abdominal distention and tenderness. X-ray of the abdomen is pending. Her hyponatremia is improving with IV fluids. Rectal exam did not reveal fecal impaction although with some hard stool further
up in the rectal vault unable to be removed. She has no prior history of constipation.
Problem list:
-Abdominal pain
-Possible perorated sigmoid diveritculitis. Few small foci free air in abdomen reported on xray in correlation with CT
-Recent right total knee replaced 04/06/2024
-Leukocytosis, secondary to steroid
-Mild anemia, likely secondary to postoperative state without obvious signs of bleeding
Other pertinent medical history:
-Hypertension
-Hyperlipidemia
-History of breast cancer status postlumpectomy
-Lumbar radiculopathy/sciatica
-Osteoarthritis
Subjective
Subjective
Date of Service: April 12, 2024
Passing multiple flatus. No BM. Abd pain improving
Objective
Data Reviewed
Laboratory Data:
Laboratory Results
04/12/24 05:16
04/12/24 05:16
Laboratory Results
Total Bilirubin 1.6 mg/dl (0.2-1.3) H 04/12/24 05:16
AST 15 U/L (14-36) 04/12/24 05:16
ALT 12 U/L (0-35) 04/12/24 05:16
Alkaline Phosphatase 106 U/L (38-126) 04/12/24 05:16
Vital Signs and I&O:
Vital Signs
Temp Pulse Resp BP Pulse Ox
98.2 F 76 18 150/80 93
04/12/24 04:16 04/12/24 06:00 04/12/24 06:00 04/12/24 06:00 04/12/24 06:00
I&O
04/10/24 04/11/24 04/12/24
06:59 06:59 06:59
Intake Total 960 / 960 2019
Output Total 1300 / 1300 1100 / 1100 350 / 350
Balance -1300 / -1300 -140 / -140 1670 / 1670
Physical Exam
Physical Exam
GI: Soft and Tender
--- NOTE | 2024-04-12 08:10 | W.PN.UPDATE ---
Update Note
Progress Note Update
73-year-old female status post right total knee arthroplasty with Dr. Zuniga 06 April 2024 admitted for sigmoid diverticulitis with possible perforation.
-Appreciate assistance of management of the patient; seen by GI and colorectal surgery
-Dressings clean dry intact the right knee
-PT/OT while admitted as possible; ROM if on bredrest ok
-Orthopedic surgery will continue to follow
[2024-04-12] MEDS: KCL 1020 MEQ IV ×2 (08:53→21:56)
--- NOTE | 2024-04-12 09:17 | W.PN.CARDCBS ---
Addendum entered and electronically signed by Lisa Langley DO 04/12/24 12:08:
I saw and examined the patient.
The [employer] Irrigator's note was reviewed and I agree with the note.
Comment: Patient seen and examined with at bedside. Less abdominal pain today although anxious to have a bowel movement. No nausea or vomiting. No chest pain or pressure. No palpitations.
GEN: No distress, awake, Ox3, lying in bed
HEENT: supple, anicteric, mmm
LUNGS: CTA, no wheezes/rales
CV: Reg, S1/S2, no murmur, rub or gallop
ABD: soft, BS+, NT/ND
EXT: No edema, Swelling of right knee with mild ecchymosis status post right total knee replacement 04/06/2024. Incision clean dry and intact. SCDs present bilaterally. No ankle edema bilaterally
NEURO: Gross non-focal
Plan:
Newly diagnosed rapid atrial fibrillation 04/11/2024 in the setting of sepsis/perforated sigmoid diverticulitis and recent right total knee replacement surgery (04/06/24)
-Patient was asymptomatic and hemodynamically stable
-Placed on IV Diltiazem gtt with spontaneous conversion to sinus rhythm 04/11/24. Remains in sinus rhythm off Dilt gtt.
-Continue IV Lopressor 25 mg every 6 hours while NPO
-Tele reviewed 13 beats wide complex tachycardia noted 04/11/24 appears to be Afib w/ aberrancy
-Hypokalemia, K+ 3.2->3.4, continue to replete
-Add on magnesium level
-TSH 2.95
-2D echocardiogram today
-Treatment of infection and pain with close monitoring for need to proceed to the OR with colorectal surgery
-We reviewed diagnosis of atrial fibrillation, pathophysiology, potential complications and symptoms, treatment options, and stroke risk as well as stroke risk reduction
-[id number] score 3 [female, hypertension, age between 65-74 years. We discussed eventual oral anticoagulation for stroke risk reduction. She seems very hesitant about taking any medications and I reviewed risks and benefits and she is currently
declining.
-Once diet is advanced would transition to oral metoprolol
-Continue to monitor on tele and if there is recurrent Afib noted we recommend starting anticoagulation
-Would hold anticoagulation for now awaiting for her to declare whether she will require surgery. Communicated and will follow closely with colorectal surgery
-Discussed with Dr. Zuniga, orthopedics and from postoperative total knee replacement standpoint no contraindications to anticoagulation
Original Note:
Today's Communication / Plan
-
Spontaneously converted to SR, off Dilt gtt. Continue IV Lopressor
Continue Lovenox
Continue to monitor on tele for recurrence of Afib
Check mag level
Replete K+
Impression / Plan
-
Keg Header: None, initially seen by Dr. Langley
Impression:
Asymptomatic rapid atrial fibrillation, new diagnosis as of 04/11/2024
Perforated sigmoid diverticulitis 04/06/2024
Hyponatremia
Postoperative anemia following right total knee replacement surgery: Hemoglobin 12.4 and 03/09/2024, currently 10.8
Hyperlipidemia
Hypertension
Osteoarthritis status post left total knee replacement surgery in 2022. Status post right total knee replacement surgery 04/06/2024
Lumbar spine disease with radiculopathy
History of right breast cancer status postlumpectomy
EKG 03/09/2024: Normal sinus rhythm with moderate LVH by voltage. Borderline EKG
EKG 04/11/2024: Atrial fibrillation with RVR, heart rate [address]-T wave abnormality, consider inferior ischemia.
Plan:
Newly diagnosed rapid atrial fibrillation 04/11/2024 in the setting of sepsis/perforated sigmoid diverticulitis and recent right total knee replacement surgery (04/06/24)
-Patient was asymptomatic and hemodynamically stable
-Placed on IV Diltiazem gtt with spontaneous conversion to sinus rhythm 04/11/24. Remains in sinus rhythm off Dilt gtt.
-Continue IV Lopressor 25 mg every 6 hours while NPO
-Tele reviewed 13 beats wide complex tachycardia noted 04/11/24. Reviewed w/ EP and favors it to be Afib w/ aberrancy
-Hypokalemia, K+ 3.2->3.4, continue to replete
-Add on magnesium level
-TSH 2.95
-Treatment of infection and pain with close monitoring for need to proceed to the OR with colorectal surgery
-We reviewed diagnosis of atrial fibrillation, pathophysiology, potential complications and symptoms, treatment options, and stroke risk as well as stroke risk reduction
-[id number] score 3 [female, hypertension, age between 65-74 years. We discussed eventual oral anticoagulation for stroke risk reduction. She seems very hesitant about taking any medications and I reviewed risks and benefits and she is currently
declining.
-Continue to monitor on tele and if there is recurrent Afib noted then will need OAC
-Continue Lovenox. Would hold anticoagulation for now awaiting for her to declare whether she will require surgery. Communicated and will follow closely with colorectal surgery
-Discussed with Dr. Zuniga, orthopedics and from postoperative total knee replacement standpoint no contraindications to anticoagulation
Progress Note - Keg Header
Subjective
Date of Service: April 12, 2024
Patient seen and examined. Feeling far. Passing gas but has not had a BM yet.
Objective
Labs:
04/12/24 05:16
04/12/24 05:16
Labs
Hgb 9.3 g/dL (12.0-16.0) L 04/12/24 05:16
Hct 27.0 % (37.0-47.0) L 04/12/24 05:16
Plt Count 363 10^3/uL (130-400) 04/12/24 05:16
Sodium 133 mmol/L (135-145) L 04/12/24 05:16
Potassium 3.4 mmol/L (3.5-5.1) L 04/12/24 05:16
BUN 19 mg/dl (7-17) H 04/12/24 05:16
Creatinine 0.7 mg/dL (0.6-1.0) 04/12/24 05:16
Glucose 88 mg/dl (70-99) 04/12/24 05:16
Vital Signs and I&O:
Vital Signs
Temp Pulse Resp BP Pulse Ox
98.2 F 76 18 150/80 93
04/12/24 04:16 04/12/24 06:00 04/12/24 06:00 04/12/24 06:00 04/12/24 06:00
Vital Signs
Temp Pulse Resp BP Pulse Ox
98.2 F 76 18 150/80 93
04/12/24 04:16 04/12/24 06:00 04/12/24 06:00 04/12/24 06:00 04/12/24 06:00
Intake & Output
04/10/24 04/11/24 04/12/24 04/13/24
06:59 06:59 06:59 06:59
Intake Total 960 / 960 2019 / 2019
Output Total 1300 / 1300 1100 / 1100 350 / 350
Balance -1300 / -1300 -140 / -140 1670 / 1670
Physical Exam
Physical Exam
GEN: No distress, awake, Ox3, lying in bed
HEENT: supple, anicteric, mmm
LUNGS: CTA, no wheezes/rales
CV: Reg, S1/S2, no murmur, rub or gallop
ABD: soft, BS+, NT/ND
EXT: No edema, Swelling of right knee with mild ecchymosis status post right total knee replacement 04/06/2024. Incision clean dry and intact. SCDs present bilaterally. No ankle edema bilaterally
NEURO: Gross non-focal
SKIN: No rash, warm, dry, pink
[2024-04-12 09:24] LABS: Glycohemoglobin (HgbA1c) 5.5 % (4.0-5.6)
[2024-04-12 09:56] LABS: Magnesium 2.4 mg/dl (1.6-2.3)
--- NOTE | 2024-04-12 10:15 | W.PN.HOSP.TC ---
Today's Communication/Plan
-
Monitor heart rate
IV Lopressor
IV fluids
IV antibiotic
CRS recs
Tx to tele if HR remains stable later today
Echo
Assessment / Plan
Assessment / Plan
General: distress due to pain
HEENT: NormoCephalic, Anicteric, [place] Conjunctivae, No Ptosis and Neck Nontender
Respiratory: Clear; No Wheezes, Rales or Rhonchi
Cardiac: S1/S2 and irregularly irregular, tachycardic
GI: Distended, TTP throughout
Musculoskeletal: No Clubbing, No Cyanosis and Edema, Right Lower Extremity (Right knee with Aquacel dressing in place, surrounding healing ecchymosis with surrounding warmth of anterior thigh/medial thigh);
Skin: Warm and Dry; No Rash
Neuro: AO x 3, No Motor Deficits, Nonfocal/grossly intact, Cranial Nerves Intact and No Sensory Deficits; No Slurred Speech, Facial Droop, Tremors or Sedated
Psych: Anxious
Sepsis likely 2/2 suspected perforated sigmoid diverticulitis
-Was constipated prior to arrival. Patient is status post right knee replacement surgery
- underwent CT abdomen pelvis without contrast on admission and underwent abdominal x-ray this morning.
-Abdominal x-ray with small foci of free air in the abdomen compared to CAT scan on admission may be bases on perforated sigmoid diverticulitis
-DC all laxatives enema per GI.
-Strict NPO. Will start gentle IV fluids. IV broad-spectrum antibiotics with Zosyn.
-Avoid hypotension. DC'd blood pressure medication
-Continue to monitor closely. Timing of surgery to be decided. Plan for conservative management. Remains with abdominal pain.
-Colorectal surgery consulted
New onset of atrial fibrillation with rapid ventricular response
-Status post 10 mg of cardizem bolus and cardizem infusion. Converted to NSR.
-Discussed with orthopedic-okay to start patient on full dose of anticoagulation from orthopedic perspective with recent knee surgery. Discussed with Dr. Zuniga on 04/11/2024.
-Will await further input from colorectal
-If A-fib only for a brief period of time per cardiology may not require anticoagulation and per patient would like to avoid it if possible. Will continue to monitor for now.
-Echo today
-Cardiology consulted
#Hyponatremia hypervolemic poss siadh/ pian / polydypsia
NA 122-->133
pt drank 128 oz guard captain in 8 hours from 11-8pm
-Sodium improved
#s/p Right knee replacement 04/07/2024
-Orthopedic not concern for infection.
-Continue with postop management.
#Hypertensive urgency uncontrolled secondary to abdominal pain
DC p.o. medication due to above. IV as needed medication.
#Postop anemia
Trend daily. Transfuse with hemoglobin less than 7
#HLD
no meds
#Anxiety
no current meds
Other PMH:
Chronic cervical radicular pain
Chronic sciatica
Breast cancer status post right breast lumpectomy
DVT prophylaxis
SCDs/Lovenox
Full code
Discussed with cardiology
Discussed with patient spouse at bedside in detail.
Tx to tele if HR remains stable later today
Anticipated Discharge: > 48 hours
Subjective/Interval History
-
Date of Service: April 12, 2024
Remains with abd pain
converted to NSR
Passing flatulence
Objective Data
-
Labs:
Laboratory Results
04/12/24
05:16
WBC 22.0 H
Hgb 9.3 L
Hct 27.0 L
Plt Count 363
Sodium 133 L
Potassium 3.4 L
Chloride 100
Carbon Dioxide 24
BUN 19 H
Creatinine 0.7
Glucose 88
Calcium 8.5
Total Bilirubin 1.6 H
AST 15
ALT 12
Alkaline Phosphatase 106
Vital Signs:
Vital Signs
Temp Pulse Resp BP Pulse Ox
98.0 F 76 16 181/76 93
04/12/24 07:10 04/12/24 09:00 04/12/24 09:00 04/12/24 09:00 04/12/24 09:00
I&O
04/11/24 04/12/24 04/13/24
06:59 06:59 06:59
Intake Total 960 / 960 2019
Output Total 1100 / 1100 350 / 350
Balance -140 / -140 1670 / 1670
Data Reviewed
-
Total Time Spent with Patient (in minutes): 55
[2024-04-12] MEDS: COLACE 100 MG PO (10:40)
[2024-04-12] MEDS: TYLENOL 1000 MG PO (10:42)
--- NOTE | 2024-04-12 11:08 | PTCARENOTE ---
Assumed care of patient at beginning of this shift from previous RN with cardizem infusing at 5mg/hr. SR with 1st degree HB and occasional PACs noted on monitor. EKG done on prior shift confirmed SR. Dr Talbot made aware and d/c'd cardizem; patient
continues on scheduled IV metoprolol.
Patient stated this morning that a physician in the ED told her she is not allowed to move because she could 'perf.' Surgeon in this morning and made aware. He explained to the patient that she should get OOB; order adjusted by surgery to read: OOB
early motility. PT consulted and made aware when they arrived to unit. Patient also updated on the importance of getting OOB.
--- NOTE | 2024-04-12 11:34 | W.PN.CRS1 ---
Today's Communication / Plan
-
remain NPO
IVFs/abx
start colace
trend wbc
Assessment/Plan
-
73 yo female who underwent Right TKR (04/06) and was discharged to home on PO steroids as part of pain regimen. She presents this admission with severe abdominal pain
WBC 22.0 from 23.2. Vitals normal.
� Continue n.p.o. today, okay for p.o. meds
� Continue IV fluid
� Continue IV Zosyn q6h
- Arrhythmia management as per cardiology. Hold PO AC at this time. Ok for heparin gtt.
� Continue pain control with Tylenol, Toradol and Dilaudid 0.5/1 mg as needed
� Lovenox for DVT prophylaxis.
- Okay for OOB. Encouraged patient to sit in chair/work with PT.
- Start Colace for constipation.
� Appreciate hospitalist
Subjective Data
Subjective Data
Date of Service: April 12, 2024
Patient states she has no nausea or vomiting. She has flatus. She has no bowel movements. She feels constipated. She has mild pressure on her left side.
Objective Data
-
Vital Signs
Temp Pulse Resp BP Pulse Ox
98.0 F 79 17 167/85 93
04/12/24 07:10 04/12/24 11:00 04/12/24 11:00 04/12/24 11:00 04/12/24 11:00
Intake & Output
04/11/24 04/12/24 04/13/24
06:59 06:59 06:59
Intake Total 960 / 960 2019
Output Total 1100 / 1100 350 / 350
Balance -140 / -140 1670 / 1670
Intake:
Oral fluids 150 / 150
IV fluids (Total) 960 / 960 1360 / 1360
IV piggybacks 510 / 510
Output:
Urine, Mas 600 / 600 350 / 350
Straight cath output 500 / 500
Lab Results
04/12/24 05:16
04/12/24 05:16
Physical Exam
-
General: No Acute Distress and AOx3
Abdomen: Soft, Distended (slight) and Tender (mild, left greater than right)
Skin: Warm and Dry
--- NOTE | 2024-04-12 14:42 | PTCARENOTE ---
Pt rec'd from offgoing RN at 13:30. Pt is seated oob in chair with visitors in room . Plan of care discussed, pt encouraged to move and use BSC with x1 assist. Pt continues with anxiety. Safe environment maintained.
--- NOTE | 2024-04-12 15:15 | PTCARENOTE ---
Confirmed with Dr. dior-[facility] orders rec'd.
--- NOTE | 2024-04-12 15:26 | PTCARENOTE ---
pt has hayes in place for acute retention, no end date specified, order clarified with Dr. Talbot. Report called to KALEIGH Farrell on 4th floor, pt will be transfered at this time to [facility]2.
--- NOTE | 2024-04-12 16:07 | PTCARENOTE ---
Patient received from IMU awake and alert. Transferred from wheelchair to chair with 1 assist steady gait. Oriented to room and surroundings.
[2024-04-12] MEDS: LOVENOX 40 MG SC (17:08)
[2024-04-12] MEDS: DILAUDID 0.5 MG IV (20:14)
[2024-04-12] MEDS: COLACE PO (21:53)
[2024-04-13] VITALS (8 sets, daily range): BP systolic 162–194; BP diastolic 88–109
[2024-04-13] MEDS: TORADOL 10 MG IV ×2 (00:01→05:41)
[2024-04-13] MEDS: ZOSYN 50 IV ×4 (00:03→17:16)
[2024-04-13] MEDS: LOPRESSOR 2.5 MG IV ×4 (05:41→17:15)
[2024-04-13 08:27] LABS: % Basophils 0.3 % (0-2); % Eosinophils 1.1 % (0-6); % Immature Granulocytes 4.2 % (0-0.5); % Lymphocytes 4.6 % (20.5-51.1); % Monocytes 5.4 % (1.7-9.3); % Neutrophils 84.4 % (42.2-75.2); Absolute Basophils 0.1 10^3/uL (0-0.2); Absolute Eosinophils 0.2 10^3/uL (0-0.7); Absolute Immature Granulocytes 0.8 10^3/uL (0-0.05); Absolute Lymphocytes 0.9 10^3/uL (1.2-3.4); Absolute Neutrophils 15.7 10^3/uL (1.4-6.5); Hematocrit 28.6 % (37.0-47.0); Hemoglobin 9.4 g/dL (12.0-16.0); Mean Corp Hgb Conc. 32.9 g/dL (33.0-37.0); Mean Corpuscular Hgb 26.9 pg (27.0-31.0); Mean Corpuscular Volume 81.7 fL (81.0-99.0); Mean Platelet Volume 9.3 fL (7.4-10.4); Nucleated Red Blood Cells % 0 %; Platelet Count 399 10^3/uL (130-400); White Blood Cell Count 18.6 10^3/uL (4.8-10.8)
[2024-04-13] MEDS: COLACE PO (08:43)
[2024-04-13 08:56] LABS: ALT (SGPT) 14 U/L (0-35); AST (SGOT) 20 U/L (14-36); Alkaline Phosphatase 130 U/L (38-126); Blood Urea Nitrogen 17 mg/dl (7-17); Calcium 8.5 mg/dl (8.4-10.2); Carbon Dioxide 25 mmol/L (22-30); Chloride 101 mmol/L (98-107); Estimated Creatinine Clearance 82 ml/min; Glucose 85 mg/dl (70-99); Sodium 135 mmol/L (135-145); Total Bilirubin 2.4 mg/dl (0.2-1.3); Total Protein 5.6 g/dl (6.3-8.2); eGFR > 60.00
[2024-04-13] MEDS: NON-FORMULARY ITEM 1 1 APPLIC TOPICAL (10:08)
--- NOTE | 2024-04-13 10:33 | W.PN.CARDCBS ---
Today's Communication / Plan
-
Cont tele
Cont IV beta alisha
Impression / Plan
-
.
Customer Solutions Architect: None, initially seen by Dr. Langley
Impression:
Asymptomatic rapid atrial fibrillation, new diagnosis as of 04/11/2024, spontaneous conversion to sinus
Perforated sigmoid diverticulitis 04/06/2024
Hyponatremia
Postoperative anemia following right total knee replacement surgery: Hemoglobin 12.4 and 03/09/2024, currently 10.8
Hyperlipidemia
Hypertension
Osteoarthritis status post left total knee replacement surgery in 2022. Status post right total knee replacement surgery 04/06/2024
Lumbar spine disease with radiculopathy
History of right breast cancer status postlumpectomy
EKG 03/09/2024: Normal sinus rhythm with moderate LVH by voltage. Borderline EKG
EKG 04/11/2024: Atrial fibrillation with RVR, heart rate [address]-T wave abnormality, consider inferior ischemia.
Plan:
Newly diagnosed rapid atrial fibrillation 04/11/2024 in the setting of sepsis/perforated sigmoid diverticulitis and recent right total knee replacement surgery (04/06/24)
Remains in sinus after spontaneous conversion to sinus rhythm 04/11/24.
Continue IV Lopressor 25 mg every 6 hours while NPO
Replete lytes as needed
TSH 2.95
Echo April 12 2024 EF preserved with mild MR, AR, TR.
[id number] score 3 [female, hypertension, age between 65-74 years.
Transition to oral anticoagulation for stroke risk reduction was discussed once she is taking POs but she had declined. May need to discuss again pending her clinical course.
Once diet is advanced would transition to oral metoprolol
Per orthopedics and from postoperative total knee replacement standpoint no contraindications to anticoagulation
Progress Note - Customer Solutions Architect
Subjective
Date of Service: April 13, 2024
Pt seen and examined. No complaints. No chest pain or shortness of breath.
Objective
Labs:
04/13/24 08:01
04/13/24 08:01
Labs
Hgb 9.4 g/dL (12.0-16.0) L 04/13/24 08:01
Hct 28.6 % (37.0-47.0) L 04/13/24 08:01
Plt Count 399 10^3/uL (130-400) 04/13/24 08:01
Sodium 135 mmol/L (135-145) 04/13/24 08:01
Potassium 4.0 mmol/L (3.5-5.1) 04/13/24 08:01
BUN 17 mg/dl (7-17) 04/13/24 08:01
Creatinine 0.6 mg/dL (0.6-1.0) 04/13/24 08:01
Glucose 85 mg/dl (70-99) 04/13/24 08:01
Vital Signs and I&O:
Vital Signs
Temp Pulse Resp BP Pulse Ox
98 F 88 19 169/89 97
04/13/24 08:01 04/13/24 08:01 04/13/24 08:01 04/13/24 08:01 04/13/24 08:01
Vital Signs
Temp Pulse Resp BP Pulse Ox
98 F 88 19 169/89 97
04/13/24 08:01 04/13/24 08:01 04/13/24 08:01 04/13/24 08:01 04/13/24 08:01
Intake & Output
04/11/24 04/12/24 04/13/24 04/14/24
06:59 06:59 06:59 06:59
Intake Total 960 / 960 2019 / 2019 1200 / 1200
Output Total 1100 / 1100 350 / 350 1550 / 1550
Balance -140 / -140 1670 / 1670 -350 / -350
Physical Exam
Physical Exam
General: No acute distress, AAOX3
Neck: Negative JVD
Heart: Regular, Negative S3 positive S1/S2, Negative S4, No murmur
Lungs: CTA b/l, negative wheezes/rales/rhonchi
Abd: Positive BS, NT/ND, neg rebound/rigidity/guarding
Ext: Negative cyanosis/clubbing/edema
Neuro: nonfocal
[2024-04-13] MEDS: KCL 1020 MEQ IV (11:25)
--- NOTE | 2024-04-13 11:25 | W.PN.HOSP.TC ---
Today's Communication/Plan
-
N.p.o.
Continue IV fluids
IV antibiotic
Monitor WBC
Monitor heart rate on telemetry
diet per CRS
Assessment / Plan
Assessment / Plan
General: distress due to pain
HEENT: NormoCephalic, Anicteric, [place] Conjunctivae, No Ptosis and Neck Nontender
Respiratory: Clear; No Wheezes, Rales or Rhonchi
Cardiac: S1/S2 and irregularly irregular, tachycardic
GI: Distended, TTP throughout
Musculoskeletal: No Clubbing, No Cyanosis and Edema, Right Lower Extremity (Right knee with Aquacel dressing in place, surrounding healing ecchymosis with surrounding warmth of anterior thigh/medial thigh);
Skin: Warm and Dry; No Rash
Neuro: AO x 3, No Motor Deficits, Nonfocal/grossly intact, Cranial Nerves Intact and No Sensory Deficits; No Slurred Speech, Facial Droop, Tremors or Sedated
Psych: Anxious
Sepsis likely 2/2 suspected perforated sigmoid diverticulitis
-Was constipated prior to arrival. Patient is status post right knee replacement surgery
-underwent CT abdomen pelvis without contrast on admission and underwent abdominal x-ray this morning.
-Abdominal x-ray with small foci of free air in the abdomen compared to CAT scan on admission may be bases on perforated sigmoid diverticulitis
-DC all laxatives enema per GI.
-Strict NPO. Will start gentle IV fluids. IV broad-spectrum antibiotics with Zosyn.
-Avoid hypotension. DC'd blood pressure medication
-Continue to monitor closely. Timing of surgery to be decided. Plan for conservative management. Remains with abdominal pain. WBC downtrended
-If with worsening abdominal pain then consider repeat CT abdomen pelvis
-Colorectal surgery consulted
New onset of atrial fibrillation with rapid ventricular response
-Status post 10 mg of cardizem bolus and cardizem infusion. Converted to NSR.
-Discussed with orthopedic-okay to start patient on full dose of anticoagulation from orthopedic perspective with recent knee surgery. Discussed with Dr. Zuniga on 04/11/2024.
-Will await further input from colorectal
-If A-fib only for a brief period of time per cardiology may not require anticoagulation and per patient would like to avoid it if possible. Will continue to monitor for now.
-Echo noted
-Cardiology consulted
Hypokalemia
-replete/monitor
#Hyponatremia hypervolemic poss siadh/ pain / polydipsia
NA 122-->135
pt drank 128 oz fire captain marine in 8 hours from 11-8pm
-Resolved
#s/p Right knee replacement 04/07/2024
-Orthopedic not concern for infection.
-Continue with postop management.
#Hypertensive urgency uncontrolled secondary to abdominal pain
DC p.o. medication due to above. IV as needed medication.
#Postop anemia
Trend daily. Transfuse with hemoglobin less than 7
#HLD
no meds
#Anxiety
no current meds
Other PMH:
Chronic cervical radicular pain
Chronic sciatica
Breast cancer status post right breast lumpectomy
DVT prophylaxis
SCDs/Lovenox
Full code
Anticipated Discharge: > 48 hours
Subjective/Interval History
-
Date of Service: April 13, 2024
Pains with abdominal pain
Had bowel movement yesterday
Objective Data
-
Labs:
Laboratory Results
04/13/24
08:01
WBC 18.6 H
Hgb 9.4 L
Hct 28.6 L
Plt Count 399
Sodium 135
Potassium 4.0
Chloride 101
Carbon Dioxide 25
BUN 17
Creatinine 0.6
Glucose 85
Calcium 8.5
Total Bilirubin 2.4 H
AST 20
ALT 14
Alkaline Phosphatase 130 H
Vital Signs:
Vital Signs
Temp Pulse Resp BP Pulse Ox
98 F 88 19 169/89 97
04/13/24 08:01 04/13/24 08:01 04/13/24 08:01 04/13/24 08:01 04/13/24 08:01
I&O
04/12/24 04/13/24 04/14/24
06:59 06:59 06:59
Intake Total 2019 1200 / 1200
Output Total 350 / 350 1550 / 1550
Balance 1670 / 1670 -350 / -350
--- NOTE | 2024-04-13 11:52 | W.PN.CRS1 ---
Today's Communication / Plan
-
clears
trend wbc
continue abx
Assessment/Plan
-
73 yo female who underwent Right TKR (04/06) and was discharged to home on PO steroids as part of pain regimen. She presents this admission with severe abdominal pain
WBC 18.6 from 22.0. Vitals normal.
� Advance diet to clears
� Continue IV fluid
� Continue IV Zosyn q6h
- Arrhythmia management as per cardiology. Hold PO AC at this time. Ok for heparin gtt.
� Continue pain control with Tylenol, Toradol and Dilaudid 0.5/1 mg as needed
� Lovenox for DVT prophylaxis.
- Okay for OOB with PT.
- Colace for constipation.
� Appreciate hospitalist
Subjective Data
Subjective Data
Date of Service: April 13, 2024
Objective Data
-
Vital Signs
Temp Pulse Resp BP Pulse Ox
98 F 88 19 169/89 97
04/13/24 08:01 04/13/24 08:01 04/13/24 08:01 04/13/24 08:01 04/13/24 08:01
Intake & Output
04/12/24 04/13/24 04/14/24
06:59 06:59 06:59
Intake Total 2019 1200 / 1200
Output Total 350 / 350 1550 / 1550
Balance 1670 / 1670 -350 / -350
Intake:
Oral fluids 150 / 150 240 / 240
IV fluids (Total) 1360 / 1360 960 / 960
IV piggybacks 510 / 510
Output:
Urine, Mas 350 / 350 1550 / 1550
Urine, Voided 0 / 0
Lab Results
04/13/24 08:01
04/13/24 08:01
Physical Exam
-
General: No Acute Distress and AOx3
Abdomen: Soft, Non Distended and Tender (right sided, mild)
Skin: Warm and Dry
[2024-04-13] MEDS: TYLENOL 1000 MG PO (14:14)
--- NOTE | 2024-04-13 16:16 | CM ---
Patient seen at bedside with . Patient plan is home with outpatient pt follow up. PT/OT recommendation is for home health. CM will continue to follow for discharge planning needs.
Plan; home with VN vs outpatient pt
[2024-04-13] MEDS: LOVENOX 40 MG SC (17:16)
[2024-04-13] MEDS: DILAUDID 0.5 MG IV (20:17)
[2024-04-13] MEDS: COLACE 100 MG PO (20:17)
[2024-04-13] MEDS: FLUSH (NSS) 2 FLUSH IV (20:18)
[2024-04-14] VITALS (13 sets, daily range): BP systolic 20–186; BP diastolic 58–84
[2024-04-14] MEDS: LOPRESSOR 2.5 MG IV ×4 (00:51→11:32)
[2024-04-14] MEDS: ZOSYN 50 IV ×3 (00:52→13:08)
[2024-04-14] MEDS: DILAUDID 0.5 MG IV ×2 (04:04→10:21)
[2024-04-14] MEDS: FLUSH (NSS) 5 FLUSH IV (04:05)
[2024-04-14 07:33] LABS: % Basophils 0.5 % (0-2); % Eosinophils 0.7 % (0-6); % Immature Granulocytes 3.4 % (0-0.5); % Lymphocytes 5.1 % (20.5-51.1); % Monocytes 5.7 % (1.7-9.3); % Neutrophils 84.6 % (42.2-75.2); Absolute Basophils 0.1 10^3/uL (0-0.2); Absolute Eosinophils 0.2 10^3/uL (0-0.7); Absolute Immature Granulocytes 0.7 10^3/uL (0-0.05); Absolute Lymphocytes 1.1 10^3/uL (1.2-3.4); Absolute Monocytes 1.3 10^3/uL (0.1-0.6); Absolute Neutrophils 18.6 10^3/uL (1.4-6.5); Hematocrit 27.5 % (37.0-47.0); Hemoglobin 9.5 g/dL (12.0-16.0); Mean Corp Hgb Conc. 34.5 g/dL (33.0-37.0); Mean Corpuscular Hgb 27.2 pg (27.0-31.0); Mean Corpuscular Volume 78.8 fL (81.0-99.0); Mean Platelet Volume 9.2 fL (7.4-10.4); Nucleated Red Blood Cells % 0 %; Platelet Count 455 10^3/uL (130-400); Red Blood Cell Count 3.49 10^6/uL (4.20-5.40); Red Cell Dist. Width 13.8 % (11.5-14.5)
--- NOTE | 2024-04-14 08:08 | W.PN.CRS1 ---
Today's Communication / Plan
-
CT A/P
NPO
Assessment/Plan
-
73 yo female who underwent Right TKR (04/06) and was discharged to home on PO steroids as part of pain regimen. She presents this admission with severe abdominal pain
WBC 22.0 from 18.6. Vitals normal.
� Given increase in WBC, will order CT A/P today.
- NPO until CT performed.
� Continue IV fluid.
� Continue IV Zosyn q6h.
- Arrhythmia management as per cardiology. Hold PO AC at this time. Ok for heparin gtt.
� Continue pain control with Tylenol, Toradol and Dilaudid 0.5/1 mg as needed
� Lovenox for DVT prophylaxis.
- Okay for OOB with PT. Encouraged patient to work with PT.
- Colace for constipation.
� Appreciate hospitalist
Subjective Data
Subjective Data
Date of Service: April 14, 2024
Patient states she feels 'okay'. She has flatus and bowel movements. She has pain in her abdomen when she has a bowel movement. She was not able to work with PT yesterday due to being tired.
Objective Data
-
Vital Signs
Temp Pulse Resp BP Pulse Ox
98.4 F 84 18 163/83 95
04/14/24 03:22 04/14/24 03:22 04/14/24 03:22 04/14/24 03:22 04/14/24 03:22
Intake & Output
04/13/24 04/14/24 04/15/24
06:59 06:59 06:59
Intake Total 1200 / 1200 729 / 729
Output Total 1550 / 1550 1450 / 1450
Balance -350 / -350 -721 / -721
Intake:
Oral fluids 240 / 240 729 / 729
IV fluids (Total) 960 / 960
Output:
Urine, Mas 1550 / 1550 950 / 950
Urine, Voided 0 / 0 500 / 500
Lab Results
04/14/24 06:57
Physical Exam
-
General: No Acute Distress and AOx3
Abdomen: Soft, Distended (moderate, worsening) and Tender (RLQ- mild)
Skin: Warm and Dry
[2024-04-14] MEDS: COLACE PO (08:23)
[2024-04-14 09:04] LABS: Blood Urea Nitrogen 13 mg/dl (7-17); Calcium 8.6 mg/dl (8.4-10.2); Carbon Dioxide 21 mmol/L (22-30); Chloride 96 mmol/L (98-107); Direct Bilirubin 1.2 mg/dl (0.0-0.4); Estimated Creatinine Clearance 82 ml/min; Glucose 72 mg/dl (70-99); Potassium 3.6 mmol/L (3.5-5.1); Sodium 127 mmol/L (135-145); eGFR > 60.00
[2024-04-14] MEDS: OMNIPAQUE 50 ML PO (09:06)
--- NOTE | 2024-04-14 12:29 | W.PN.HOSP.TC ---
Today's Communication/Plan
-
Monitor vital signs and see plan
Went into A-fib again, now on dilt drip, metoprolol as needed
Leukocytosis worse, CT abdomen
NPO
Monitor sodium
Assessment / Plan
Assessment / Plan
General: pain
HEENT: NormoCephalic, Anicteric
Respiratory: Clear; No Wheezes, Rales or Rhonchi
Cardiac: S1/S2 and irregularly irregular, tachycardic
GI: Distended, TTP throughout
Musculoskeletal: No Clubbing, No Cyanosis and Edema, Right Lower Extremity (Right knee with Aquacel dressing in place, surrounding healing ecchymosis with surrounding warmth of anterior thigh/medial thigh)
Neuro: AO x 3, No Motor Deficits, Nonfocal/grossly intact
Psych: Anxious
Sepsis likely 2/2 suspected perforated sigmoid diverticulitis
-Was constipated prior to arrival. Patient is status post right knee replacement surgery
-underwent CT abdomen pelvis without contrast on admission and underwent abdominal x-ray this morning.
-Abdominal x-ray with small foci of free air in the abdomen compared to CAT scan on admission may be bases on perforated sigmoid diverticulitis
-DC all laxatives enema per GI.
-Strict NPO. Will start gentle IV fluids. IV broad-spectrum antibiotics with Zosyn.
-Avoid hypotension. DC'd blood pressure medication
-Continue to monitor closely. Leukocytosis worse today. Repeat CT scan abdomen. N.p.o. Colorectal surgery following
New onset of atrial fibrillation with rapid ventricular response
-Status post 10 mg of cardizem bolus and cardizem infusion. Converted to NSR. now back in afib with RVR 04/14
-Discussed with orthopedic-okay to start patient on full dose of anticoagulation from orthopedic perspective with recent knee surgery. Discussed with Dr. Zuniga on 04/11/2024.
-Will await further input from colorectal
cw dilt gtt; IV pushes metoprolol prn
CHADVASC 3
-Echo noted
-Cardiology following
Hypokalemia
-replete/monitor
#Hyponatremia hypervolemic poss siadh/ pain / polydipsia
Na 127 today; monitor
#s/p Right knee replacement 04/07/2024
-Orthopedic not concern for infection.
-Continue with postop management.
#Hypertensive urgency uncontrolled secondary to abdominal pain
DC p.o. medication due to above. IV as needed medication.
#Postop anemia
Trend daily. Transfuse with hemoglobin less than 7
#HLD
no meds
#Anxiety
no current meds
Other PMH:
Chronic cervical radicular pain
Chronic sciatica
Breast cancer status post right breast lumpectomy
DVT prophylaxis
SCDs/Lovenox
Full code
I spent a total of 53 minutes with the patient or on the floor. More than 50% of this time involved counseling and coordination of care.
Anticipated Discharge: > 48 hours
Subjective/Interval History
-
Date of Service: April 14, 2024
has some pain
Objective Data
-
Labs:
Laboratory Results
04/14/24 04/14/24
06:57 08:19
WBC 22.0 H
Hgb 9.5 L
Hct 27.5 L
Plt Count 455 H
Sodium Cancelled 127 L D
Potassium Cancelled 3.6
Chloride Cancelled 96 L
Carbon Dioxide Cancelled 21 L
BUN Cancelled 13
Creatinine Cancelled 0.5 L
Glucose Cancelled 72
Calcium Cancelled 8.6
Vital Signs:
Vital Signs
Temp Pulse Resp BP Pulse Ox
98.2 F 141 21 186/84 96
04/14/24 08:00 04/14/24 11:32 04/14/24 08:00 04/14/24 08:00 04/14/24 08:00
I&O
04/13/24 04/14/24 04/15/24
06:59 06:59 06:59
Intake Total 1200 / 1200 729 / 729
Output Total 1550 / 1550 1450 / 1450
Balance -350 / -350 -721 / -721
--- NOTE | 2024-04-14 13:03 | W.PN.CARDCBS ---
Addendum entered and electronically signed by Jami Ngo MD 04/14/24 15:39:
I saw and examined the patient.
The Map And Chart Mounter's note was reviewed and I agree with the note.
Comment: Went to see patient but she had gone urgently to the OR with moderate free air and fluid collections as noted.
Seen by advanced primary care nurse practitioner prior to the OR. Hemodynamically stable at that time. Continues with atrial fibrillation with increased rates. Diltiazem drip had been added with as needed metoprolol. Hydralazine added earlier for blood
pressure as needed with parameters. Continue to follow postop. Continue telemetry monitoring.
Eventual oral anticoagulation if can tolerate.
Original Note:
Today's Communication / Plan
-
Changed Lopressor IV to as needed
Started Cardizem drip at 10 mg an hour
Added hydralazine IV as needed
Patient declined anticoagulation earlier this admission, but will discuss again closer to discharge when she is less overwhelmed
Impression / Plan
-
PCP: Dr. Julian Pro
Sandblast Carver: None, initially seen by Dr. Langley
Impression:
Admitted with perforated sigmoid diverticulitis 04/09/24
Recent right TKA 04/06/24
Newly diagnosed Afib with RVR 04/11/24
spontaneous conversion to SR and then back to Afib
Hyponatremia
Postoperative anemia following right TKA
Hyperlipidemia
Hypertension
Lumbar spine disease with radiculopathy
History of right breast cancer status postlumpectomy
Echo 04/12/2024: EF 55 to 60%, mild aortic regurgitation, mild tricuspid regurgitation
Plan:
-Patient had a repeat CT abd/pelvis 04/14/24 that suggested moderate volume of free air and 2 new abnormal fluid collections in the lower abdomen/true pelvis that are suspicious for abscesses. Prior to this finding patient was being managed with IV
fluids and Zosyn antibiotic. Plan is now for surgical intervention.
-Cardiology has been consulted since patient started with newly diagnosed atrial fibrillation and rapid ventricular response seen on 04/11/2024. She has spontaneous conversion to sinus rhythm, but has since recurred with atrial fibrillation and is
rapid on the morning of 04/14/2024. Will continue with Lopressor IV as needed rapid heart rates, but will add Cardizem drip at 10 mg an hour ordered rate for heart rate control to get her through surgery.
-[id number] score is 3. Patient has not been anticoagulated beyond Lovenox 40 mg subcu daily this admission. Will eventually have to decide on oral anticoagulation, but when suggested earlier this admission patient declined. Patient also says
that she is very overwhelmed. Perhaps once she is closer to discharge we can have this conversation again or wait for an upcoming office visit to review.
-Patient just had a right TKA on 04/06/2024 and orthopedic surgery service has cleared patient for OAC if she is agreeable
Progress Note - Sandblast Carver
Subjective
Date of Service: April 14, 2024
She is overwhelmed upon return from CT scan
Objective
Labs:
04/14/24 06:57
04/14/24 08:19
Labs
Hgb 9.5 g/dL (12.0-16.0) L 04/14/24 06:57
Hct 27.5 % (37.0-47.0) L 04/14/24 06:57
Plt Count 455 10^3/uL (130-400) H 04/14/24 06:57
Sodium 127 mmol/L (135-145) L D 04/14/24 08:19
Potassium 3.6 mmol/L (3.5-5.1) 04/14/24 08:19
BUN 13 mg/dl (7-17) 04/14/24 08:19
Creatinine 0.5 mg/dL (0.6-1.0) L 04/14/24 08:19
Glucose 72 mg/dl (70-99) 04/14/24 08:19
Vital Signs and I&O:
Vital Signs
Temp Pulse Resp BP Pulse Ox
98.2 F 141 21 186/84 96
04/14/24 08:00 04/14/24 11:32 04/14/24 08:00 04/14/24 08:00 04/14/24 08:00
Vital Signs
Temp Pulse Resp BP Pulse Ox
98.2 F 141 21 186/84 96
04/14/24 08:00 04/14/24 11:32 04/14/24 08:00 04/14/24 08:00 04/14/24 08:00
Intake & Output
04/12/24 04/13/24 04/14/24 04/15/24
06:59 06:59 06:59 06:59
Intake Total 2019 / 2019 1200 / 1200 729 / 729
Output Total 350 / 350 1550 / 1550 1450 / 1450
Balance 1670 / 1670 -350 / -350 -721 / -721
Physical Exam
Physical Exam
GEN: Anxious, tearful at times
HEENT: mmm
LUNGS: No audible wheeze
CV: Afib with RVR on tele
ABD: distended
EXT: No edema B/L
NEURO: Gross non-focal
SKIN: No rash
[2024-04-14] MEDS: CARDIZEM 125 IV (13:32)
--- NOTE | 2024-04-14 13:51 | WOUNDNOTE ---
CLARISA RN NOTE: Stoma sited patient as requested all quadrants. Identified rectus muscle, avoided all creases and scars. LUQ marked at 5.5cm from midline and 6cm above umbilical line. LLQ marked 2cm distal from umbilical line and 6.5cm from midline.
RUQ marked 5.5cm from midline and 6.5 cm proximal from umbilical line, RLQ marked 6cm from midline and 4.5 distal from umbilical line. Sited lying and sitting at side of bed. Due to recent knee surgery did not have patient stand. Patient very
anxious, at bedside. Answered all questions and will follow if has ostomy.
[2024-04-14 14:26] LABS: INR 1.19; PT 15.2 Sec (11.4-14.6)
[2024-04-14 14:27] LABS: APTT 31.8 Sec (23.4-35.0)
--- NOTE | 2024-04-14 17:55 | W.IMMPOSTOP ---
Surgical Immed Post Op Note
-
Primary Surgeon: Yury Wright MD
Assisting Surgeon: KITA Young, shift change with KITA Orellana
Pre-op Diagnosis: Perforated diverticulitis
Post-op Diagnosis: Perforated diverticulitis
Procedure Performed: Ex lap, sigmoidectomy, end colostomy
Anesthesia Type: General
Specimen / Cultures: None
Estimated Blood Loss: 50 mL
IVF: 1.8L
UOP: 300mL
Complications: None
Operative Findings: Midline incision; upon entry, dark serous ascites with some free air; upon exploration, noted abscess in the suprapubic region that stent extended to the right lower quadrant and towards the left pelvic brim, evacuated about 5 cc
of pus; cavity coated by fibrinous exudate which was involving multiple loops of bowel and extended up to the appendix; the appendix appeared normal with no signs of inflammation or perforation; on evaluation of the sigmoid, the mid sigmoid was
thickened and inflamed with tiny site of perforation and inflamed; mobilized the sigmoid and identified the left ureter and kept it safe; divided at healthy colon proximally at the proximal sigmoid and distally at the rectosigmoid junction; tag the
rectal stump with a 2-0 Prolene; controlled staple line bleeding with one 3-0 Vicryl in [id number] fashion; divided the mesentery at midpoint; passed off the specimen; irrigated with 4 L of warm saline; small bowel bowel was mildly dilated with
6 patchy areas of fibrinous exudate but no areas of ischemia or enterotomy; some fibrinous exudate in the pelvis along the right aspect of the anterior flexure; placed 19 Bulgarian Robert drain in the pelvis; mobilized sigmoid and mid descending colon
and reach was adequate to the left lower quadrant ostomy marking site; created a hole in the abdominal wall and passed the end colostomy through it and reach remained adequate; closed midline with 0 PDS; irrigated and injected 60 mL of Marcaine
around midline and ostomy; closed midline with intermittent chrissy and Telfa sofy; matured colostomy
--- NOTE | 2024-04-14 18:04 | OR.RPT ---
Operative Report
Operative Report
DATE OF OPERATION: 04/14/2024
SURGEON: Yury Wright MD
PREOPERATIVE DIAGNOSIS: Perforated diverticulitis with pneumoperitoneum
POSTOPERATIVE DIAGNOSIS: Perforated diverticulitis with pneumoperitoneum and intra-abdominal abscess
OPERATION: Exploratory laparotomy, sigmoidectomy, creation of end colostomy
ASSISTANTS:
1. KITA Young/KITA Orellana
ANESTHESIA: General
ESTIMATED BLOOD LOSS: 50 mL
UOP: 300 mL
IVF: 1.8 L
FINDINGS:
1. Upon entry, encountered dark serosanguineous ascites, not purulent or feculent; identified abscess in the right lower quadrant/suprapubic region extending to the left pelvic brim associated with air and about 5 mL of purulence; identified
thickened and inflamed sigmoid colon with very small perforation; appendix and cecum appeared normal, but with adherent fibrinous exudate; bilateral ovaries appeared normal; uterus with 2 cm fibroid appeared normal covered with fibrinous exudate
2. Divided colon at the rectosigmoid junction, which appeared healthy, and at the proximal sigmoid, which appeared healthy; divided the mesentery close to the colon; washed the abdomen with 4 L of warm saline
3. Created end-colostomy in the left lower quadrant at the preoperative marking site
SPECIMENS:
1. Sigmoid colon
DRAINS: 19 Kosovan Robert drain in the pelvis, exiting the RLQ
COMPLICATIONS: No immediate complications.
INDICATIONS: The patient is a 73-year-old female who presented to the [facility] ED with acute abdominal pain. Her WBC was 26.[address] was initially read as constipation. However, the next day, the CT was reviewed and showed diverticulitis
with flecks of free air, concerning for perforation. As she was hemodynamically stable and without evidence of peritonitis, she was treated nonoperatively. On hospital day 6, she had an increase in leukocytosis associated with A-fib with RVR. A
repeat CT scan showed worsening free air with large abscess primarily of air. Therefore, I recommended she undergo surgery as this perforation was no longer contained. The operation was discussed with the patient beforehand in detail, including
risks, benefits and alternatives. My plan is to explore the abdomen, identify the site of perforation and remove the segment of bowel, likely the sigmoid colon. I will then assess if a primary anastomosis is reasonable or if an ostomy would be
safer. I anticipate needing to create an ostomy to reduce the risk of post-operative complications. Risks described included, but are not limited to, bleeding, infection, anastomotic leak (if anastomosis created), rectal stump dehiscence, ureteral
injury, bowel or solid organ injury, recurrence of diverticulitis, risks associated with a stoma if created (ie- skin irritation, ischemia, retraction, prolapse and parastomal hernia) and anesthetic risks. The patient understood and agreed to
proceed.
PROCEDURE IN DETAIL: Pre-operatively, the patient was marked by our enterostomal nurses. The patient was taken to the operating room and placed on the operating table in supine position. Sequential compression devices were placed bilaterally.
General anesthesia was then induced and the patient was intubated without complication. The patient was then placed in lithotomy position with both arms extended. A Mas catheter was already in place due to urinary retention. The abdomen was then
shaved, prepped and draped in a sterile fashion. A time-out was then performed verifying the correct patient, procedure, operative site, positioning, and special equipment. Anesthesia placed an orogastric tube. The patient was on standing IV zosyn.
A marking pen was used to parviz out the midline.
Using a 15 blade scalpel, a midline incision was made from 4 cm superior to the umbilicus and extended caudally to 2 cm superior to the pubic symphysis. This was taken down to the level of the fascia with Bovie electrocautery and hemostasis was
assured. The linea alba was divided carefully with Bovie electrocautery. Then 2 Kellys were used to grasp and elevate the peritoneum, which was sharply divided with Metzenbaum scissors, ensuring no peritoneal organs were in the vicinity. Upon
entry, I encountered clear dark serosanguineous ascites, which was suctioned. There was no purulent or feculent ascites encountered. I extended the fascial incision to the length of the skin incision, taking care to avoid injury to the bladder. A
large Ayad wound protector was placed. The abdomen was explored. There were multiple mildly dilated small bowel loops clustered around the right lower quadrant and suprapubic area, adherent to each other due to fibrinous exudate. These loops of
small bowel were carefully and easily mobilized with blunt dissection from the adherent fibrinous material. There was clearly a cavity extending from the RLQ to the suprapubic region and anteriorly to the sigmoid towards the left pelvic brim. I
identified the cecum and appendix, both of which appeared normal, but with adherent fibrinous material. Upon investigating the abscess cavity that was primarily air, and encountered some pus in the suprapubic area adjacent to the inflamed sigmoid.
There was only about 5 mL of pus, which was suctioned. The sigmoid colon was clearly inflamed and thickened and on closer look, there was a perforation noted in the mid sigmoid laterally near the left pelvic brim. Thus, I set up for a
sigmoidectomy. The Bookwalter was set up with 4 points of retractions. The patient was placed in Trendelenburg position with the left side tilted up. The small bowel was then swept out of the pelvis to the RUQ with a moistened lap pad.
With the sigmoid colon adequately exposed, I began by mobilizing it in a lateral to medial fashion using a combination of blunt dissection and electrocautery. After mobilizing the sigmoid mesentery off of the left pelvic brim and retroperitoneum, I
easily identified the left ureter and kept it safe from my dissection. I assessed the rectum, which appeared healthy. The inflammation extended to just proximal to the rectosigmoid. Therefore, I selected a point at the rectosigmoid junction for
my distal transection. I scored the peritoneum on both sides of the rectosigmoid junction. I mobilized the sigmoid and mesentery of the sigmoid up to the proximal sigmoid. Upon palpating the sigmoid, the inflammation and thickening of the colon
continued to about the proximal sigmoid, which was the point I selected for proximal transection. I then created a hole in the mesentery at this point using Bovie electrocautery. I divided the colon at this point using a green load of the contour
stapler. I then began dividing the mesentery using the LigaSure, taking this towards my distal transection point, staying close to the colon and ensuring the left ureter remained safe. I then created a hole in the mesentery at my distal
transection point at the rectosigmoid junction using Bovie electrocautery. I stapled and divided the colon using the contour stapler with a green load. I divided the remainder of the mesentery with the LigaSure. I passed off the specimen and sent
it for pathology.
Now that I had control of the contamination, I checked for hemostasis. I controlled a small ooze from the rectal stump staple line with a 3-0 Vicryl in [id number] fashion. I washed the abdomen in all 4 quadrants with 4 L of warm saline and
the effluent was clear. Due to the significant amount of inflammation with mildly dilated small bowel and large abdominal abscess, I elected to proceed with an end colostomy as opposed to primary anastomosis. I tagged the rectal stump using a 2-0
prolene stitch at the mid-point of the staple line and left a 3cm tail. I divided the white line of Toldt up to the mid descending colon and mobilized the mesentery of the descending and remaining sigmoid colon off of the retroperitoneum. I checked
my reach for my future end colostomy, and it reached easily to the LLQ marking site. I grasped the LLQ ostomy marking site with an Allis and created a 2.5 cm circular incision around this. I amputated the pedicle of skin and discarded this. I
dissected down through the subcutaneous tissue using [employer] retractors and Bovie electrocautery. I performed a cruciate incision on the anterior fascia. I split the rectus muscle using a long Azalea and created a cruciate incision in the
posterior fascia, taking care to avoid injury to abdominal structures. Hemostasis within the ostomy tract was checked and confirmed. The distal stapled end of the proximal sigmoid was then passed through the ostomy trephine and easily cleared the
skin by 3 cm. This was secured above the skin with a [place].
I checked the operative field once more and hemostasis was assured. In the pelvis, there was some fibrinous exudate within the anterior reflection. Due to my concern for an impending pelvic abscess, I placed a 19 Kosovan drain within the pelvis
along the anterior reflection. I threaded this through a stab incision in the RLQ and secured it to the skin using a 2-0 nylon. I closed the fascia using 0 PDS in a running fashion, starting from the corners and meeting in the middle. I injected
60 mL of 0.25% Marcaine mixed with 0.6mg of dexamethasone around the midline incision and the colostomy track within the subcutaneous tissue and within the fascial layer. I irrigated the subcutaneous space in the midline incision. I closed the
midline incision with intermittent chrissy and Telfa sofy within the spaces. An Aquacel dressing was placed to cover the incision and a blue towel was placed over the Aquacel. Attention was turned to maturing the end colostomy. There was a
significant amount of bulky epiploica. 2 or 3 epiploica were amputated with the LigaSure. Due to the bulky epiploica in the mesentery, only 2 quadrants were able to be brooked with 3-0 Vicryl sutures and the remaining quadrants were sutured in
place with 3-0 Vicryl sutures in an interrupted fashion. Once there were no gaps in the mucocutaneous junction, the ostomy was confirmed to be patent with passing my pinky finger down past the level of the fascia. The ostomy appliance was placed.
The Robert drain was secured to the bulb suction.
At this point, the procedure was complete. The patient was awoken and extubated without complication. All needle, sponge and instrument counts were reported as correct. The patient tolerated the procedure well and was transferred to the recovery
room in stable condition with the Mas in place.
DICTATED BY: Yury Wright MD
[2024-04-14] MEDS: TORADOL 15 MG IV ×2 (19:00→23:58)
[2024-04-14] MEDS: NORMOSOL-R 1000 IV (19:15)
[2024-04-14] MEDS: ZOSYN IV (19:22)
[2024-04-14] MEDS: TYLENOL 1000 MG PO (22:22)
[2024-04-15] VITALS (13 sets, daily range): BP systolic 105–155; BP diastolic 51–108; BMI 28.8
[2024-04-15] MEDS: TYLENOL PO (00:07)
[2024-04-15] MEDS: CARDIZEM 125 IV ×2 (03:38→17:09)
[2024-04-15] MEDS: ZOSYN 50 IV ×5 (05:57→23:42)
[2024-04-15] MEDS: TORADOL 15 MG IV (05:57)
[2024-04-15] MEDS: TYLENOL 1000 MG PO ×4 (05:57→23:42)
[2024-04-15 06:26] LABS: % Basophils 0.5 % (0-2); % Eosinophils 0.1 % (0-6); % Immature Granulocytes 3.6 % (0-0.5); % Lymphocytes 3.4 % (20.5-51.1); % Monocytes 2.8 % (1.7-9.3); % Neutrophils 89.6 % (42.2-75.2); Absolute Basophils 0.1 10^3/uL (0-0.2); Absolute Monocytes 0.8 10^3/uL (0.1-0.6); Hematocrit 31.2 % (37.0-47.0); Hemoglobin 10.6 g/dL (12.0-16.0); Mean Corpuscular Volume 79.4 fL (81.0-99.0); Mean Platelet Volume 8.9 fL (7.4-10.4); Nucleated Red Blood Cells % 0.1 %; Platelet Count 504 10^3/uL (130-400); Red Blood Cell Count 3.93 10^6/uL (4.20-5.40); Red Cell Dist. Width 13.4 % (11.5-14.5); White Blood Cell Count 27.9 10^3/uL (4.8-10.8)
[2024-04-15 06:52] LABS: ALT (SGPT) 21 U/L (0-35); AST (SGOT) 42 U/L (14-36); Albumin 2.7 g/dl (3.5-5.0); Alkaline Phosphatase 117 U/L (38-126); Blood Urea Nitrogen 21 mg/dl (7-17); Calcium 7.9 mg/dl (8.4-10.2); Carbon Dioxide 22 mmol/L (22-30); Chloride 95 mmol/L (98-107); Estimated Creatinine Clearance 83 ml/min; Glucose 120 mg/dl (70-99); Potassium 3.9 mmol/L (3.5-5.1); Sodium 128 mmol/L (135-145); Total Bilirubin 1.6 mg/dl (0.2-1.3); Total Protein 5.1 g/dl (6.3-8.2); eGFR > 60.00
--- NOTE | 2024-04-15 08:02 | W.PN.CARDCBS ---
Addendum entered and electronically signed by Jami Ngo MD 04/15/24 09:53:
I saw and examined the patient.
The Switch Coupler's note was reviewed and I agree with the note.
Currently cardiac stable and in sinus rhythm with paroxysmal atrial fibrillation. EKG reviewed and sinus rhythm noted.
Blood pressure improved postoperatively which we discussed. Eventually could consider readding losartan if needed (was on losartan and HCTZ as an outpatient).
Continue to follow with as needed beta-alisha for increased heart rates in A-fib and as needed hydralazine. For now continue IV diltiazem until patient is taking oral medication. Heart rates are more stable today. On discharge would likely give
low-dose diltiazem. Rates in atrial fibrillation have been rapid.
Eventual oral anticoagulation is recommended which we discussed. Patient said to me 'we will see '.
Continue usual postop care.
Discussed with the patient. Family was at the bedside.
Original Note:
Today's Communication / Plan
-
Truly paroxysmal with Afib
Cont Cardizem gtt at 10 mg/hr while NPO
Lopressor IV and hydralazine IV PRN ordered
Eventually need to figure out OAC
Impression / Plan
-
PCP: Dr. Julian Pro
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 Langley
Impression:
Admitted with perforated sigmoid diverticulitis 04/09/24
s/p exploratory laparotomy, sigmoidectomy and end colostomy 04/14/24
Recent right TKA 04/06/24
Newly diagnosed Afib with RVR 04/11/24
spontaneous conversion to SR and then back to Afib
Hyponatremia
Postoperative anemia following right TKA
Hyperlipidemia
Hypertension
Lumbar spine disease with radiculopathy
History of right breast cancer status postlumpectomy
Echo 04/12/2024: EF 55 to 60%, mild aortic regurgitation, mild tricuspid regurgitation
Plan:
-Patient had an ex lap with sigmoidectomy and end colostomy 04/14/24.
-Patient converted to SR intra-op on 04/14/24, but is back in Afib 04/15/24 on tele review by me. Check ECG, ordered by me. Patient is paroxysmal. HRs controlled on Cardizem gtt at 10 mg/hr.
-Talked with patient, and daughter bedside 04/15/24 about Afib. Explained pathophysiology of Afib and rate control vs rhythm control. Also talked about OAC.
-[id number] score is 3. Patient has not been anticoagulated beyond Lovenox 40 mg SQ daily this admission which is now on hold post-op. Will eventually have to decide on OAC, but patient voices concerns about bleeding risks. Will talk more as
patient improves from a post-op standpoint.
-Patient just had a right TKA on 04/06/2024 and orthopedic surgery service has cleared patient for OAC if she is agreeable
-BP better controlled 04/15/24. Outpatient doses of HCTZ 12.5 mg daily and losartan 50 mg daily on hold while NPO.
-Lopressor 5 mg IV q6 hours PRN and hydralazine 10 mg IV q4 hours PRN ordered for BP control.
HPI: I had the pleasure to meet Jonas Thompson in 2122 for evaluation of new rapid atrial fibrillation. She is accompanied today by her significant other, Danis. Jonas is a 73-year-old female with a past medical history of hypertension, dyslipidemia
who reports reaction to Zocor and has declined trial of other lipid-lowering therapy, breast cancer status post lumpectomy, lumbar radiculopathy, osteoarthritis, right shoulder bone spur with chronic pain, left total knee replacement, and more
recently a right total knee replacement 04/06/[address] Zuniga. She has not previously seen cardiology. Her significant other, Danis, does have atrial fibrillation and is followed by cardiology at [place]. She presented to [facility]
with severe abdominal pain and postop constipation found to have sigmoid diverticulitis complicated by small perforation by CT and x-ray imaging. There was no abscess seen on initial CT per surgery. She also had acute urinary retention requiring
straight cath. She was made n.p.o. for bowel rest and placed on IV antibiotics. Colorectal surgery is following however there is no urgent plan for surgery. This morning around 7 AM she was noted to be in rapid atrial fibrillation which is a new
diagnosis. Fortunately, she denies tachycardia or palpitations. She denies chest pain or shortness of breath. She was started on IV Cardizem drip following an IV Cardizem bolus and is currently on an infusion of 15 mg/h with heart rates still in
the 140s�160s. Past medical/surgical history: Hypertension, untreated dyslipidemia/reaction to Zocor and has declined trial of other lipid-lowering therapy, right breast cancer status post lumpectomy, lumbar spine disease status post right L3-4,
L4-5 ILESI in 2022, left total knee replacement surgery 04/08/2023, right total knee replacement surgery 04/06/2024, right shoulder pain/bone spur.
Progress Note - Boiler Plant Worker
Subjective
Date of Service: April 15, 2024
She says that she can feel palpitations at times
Objective
Labs:
04/15/24 06:06
04/15/24 06:06
Labs
Hgb 10.6 g/dL (12.0-16.0) L 04/15/24 06:06
Hct 31.2 % (37.0-47.0) L 04/15/24 06:06
Plt Count 504 10^3/uL (130-400) H 04/15/24 06:06
PT 15.2 Sec (11.4-14.6) H 04/14/24 14:03
INR 1.19 04/14/24 14:03
APTT 31.8 Sec (23.4-35.0) 04/14/24 14:03
Sodium 128 mmol/L (135-145) L 04/15/24 06:06
Potassium 3.9 mmol/L (3.5-5.1) 04/15/24 06:06
BUN 21 mg/dl (7-17) H 04/15/24 06:06
Creatinine 0.6 mg/dL (0.6-1.0) 04/15/24 06:06
Glucose 120 mg/dl (70-99) H 04/15/24 06:06
Vital Signs and I&O:
Vital Signs
Temp Pulse Resp BP Pulse Ox
97.7 F 73 19 117/70 97
04/15/24 03:50 04/15/24 04:00 04/15/24 04:00 04/15/24 04:00 04/15/24 04:00
Vital Signs
Temp Pulse Resp BP Pulse Ox
97.7 F 73 19 117/70 97
04/15/24 03:50 04/15/24 04:00 04/15/24 04:00 04/15/24 04:00 04/15/24 04:00
Intake & Output
04/13/24 04/14/24 04/15/24 04/16/24
06:59 06:59 06:59 06:59
Intake Total 1200 / 1200 729 / 729 100 / 100
Output Total 1550 / 1550 1450 / 1450 1470 / 1470
Balance -350 / -350 -721 / -721 -1370 / -1370
Physical Exam
Physical Exam
GEN: AAO x3, tearful at times
HEENT: mmm
LUNGS: No audible wheeze
CV: Afib on tele
ABD: distended
EXT: No edema B/L
NEURO: Gross non-focal
SKIN: No rash
--- NOTE | 2024-04-15 08:37 | W.PN.CRS1 ---
Today's Communication / Plan
-
Keep NPO with sips, expect delayed return of bowel function
Zosyn x4days
Cont hayes
Assessment/Plan
-
73-year-old female with PMH of HTN, sciatica, breast cancer s/p lumpectomy, anxiety and recent right R TKR on 04/06/24 who presents with 1 day of acute abdominal pain, never happened to her before; associated with constipation (BM's were small and
hard), no N/V, CP/SOB no urinary symptoms; WBC 26.7, CT�initially read as inflammation of the bowel mesentery, but reviewed by radiology 04/10 noting flecks of free air in the left abdomen associated with diverticulitis, no free fluid or abscess;
patient was initially admitted with concern of significant constipation, but re-read of CT confirms perforated diverticulitis; attempted non-operative mgmt as there was no peritonitis or hemodynamic instability; on HD 2, she went into afib with RVR,
but converted back to sinus with metoprolol; on HD 5, she had a bump in her WBC and flipped back into afib with RVR; a repeat CT showed a large intrabdominal abscess with worsening free air
POD 1 exlap, sigmoidectomy, end-colostomy
AFVSS
WBC 27.9 from 22.0, Hb 10.6 from 9.5, Cr 0.6, UOP 1.4L
-Perforated diverticulitis, s/p attempt at non-op mgmt, 04/14 with bump in wbc and worsening perforation on CT
-expected bump in wbc for POD1
-cont Zosyn x4 days postop
� Cont NPO with sips, ok for PO meds; await return of bowel function, expect to be delayed due to intra-abdominal inflammation
-plan to get PICC tmrw for TPN if no evidence of ostomy function
-hold all bowel regimen
� Appreciate cards; continue dilt gtt for afib
� Cont DVT PPx with Lovenox; hold therapeutic AC
� Continue pain control with Tylenol, Toradol and Dilaudid 0.5/1 mg as needed
- OOB/IS, encourge ambulation; appreciate PT
- Cont hayes, plan to dc tmrw
� Appreciate hospitalist
Subjective Data
Subjective Data
Date of Service: April 15, 2024
No overnight events.
Pain controlled.
Denies nausea/vomiting. Tolerating sips
No ostomy function. + Hayes
Pt is not OOB yet.
Objective Data
-
Vital Signs
Temp Pulse Resp BP Pulse Ox
97.7 F 73 19 117/70 97
04/15/24 03:50 04/15/24 04:00 04/15/24 04:00 04/15/24 04:00 04/15/24 04:00
Intake & Output
04/14/24 04/15/24 04/16/24
06:59 06:59 06:59
Intake Total 729 / 729 100 / 100
Output Total 1450 / 1450 1470 / 1470
Balance -721 / -721 -1370 / -1370
Intake:
Oral fluids 729 / 729 0 / 0
IV fluids (Total) 100 / 100
normosol 100 / 100
Output:
Drain Output (Total) 40 / 40
Right Abdomen Jeramie-Govea 40 / 40
Urine, Hayes 950 / 950 855 / 855
Urine, Voided 500 / 500 575 / 575
Lab Results
04/15/24 06:06
04/15/24 06:06
Physical Exam
-
General: No Acute Distress and AOx3
HEENT: Grossly Normal
Abdomen: Soft, Distended (Mildly to moderately distended), Tender (Appropriately tender near midline incision), No Guarding, No Rebound and Other (KAHLIL with 40 mL cloudy serosanguineous)
Skin: Warm and Dry
Wound: No Signs of Infection, Dressing in Place (Aquacel in place with minimal strikethrough) and No Skin Erythema
[2024-04-15] MEDS: NORMOSOL-R 1000 IV ×2 (11:12→22:31)
--- NOTE | 2024-04-15 12:25 | W.PN.HOSP.TC ---
Today's Communication/Plan
-
Monitor vitals
See plan
Awaiting ostomy record
Pain control
Continue with antibiotics
Continue diltiazem drip
Updated family at bedside
Assessment / Plan
Assessment / Plan
General: pain
HEENT: NormoCephalic, Anicteric
Respiratory: Clear; No Wheezes, Rales or Rhonchi
Cardiac: S1/S2 and regularly regular
GI:+ostomy
Musculoskeletal: No Clubbing, No Cyanosis and Edema, Right Lower Extremity (Right knee with Aquacel dressing in place, surrounding healing ecchymosis with surrounding warmth of anterior thigh/medial thigh)
Neuro: AO x 3, No Motor Deficits, Nonfocal/grossly intact
Psych: Anxious
Sepsis likely 2/2 suspected perforated sigmoid diverticulitis
-Was constipated prior to arrival. Patient is status post right knee replacement surgery
-Initial imaging was consistent with perforated sigmoid diverticulitis, repeat imaging 04/14 with worsening perforation on CT. Status post ex lap, sigmoidectomy, end colostomy. Continue with antibiotics. Continue with n.p.o. per surgery. Monitor
ostomy function
-Avoid hypotension. DC'd blood pressure medication
Colorectal surgery following
New onset of atrial fibrillation with rapid ventricular response
back in afib with RVR 04/14; now back in NSR
Continue with diltiazem drip for now, cardiology following
-Discussed with orthopedic-okay to start patient on full dose of anticoagulation from orthopedic perspective with recent knee surgery. Discussed with Dr. Zuniga on 04/11/2024.
cw dilt gtt; IV pushes metoprolol prn
CHADVASC 3, will need anticoagulation eventually. When cleared from colorectal surgery standpoint
-Echo noted
-Cardiology following
Hypokalemia
-replete/monitor
#Hyponatremia hypervolemic poss siadh/ pain / polydipsia
Na 129 today; monitor
#s/p Right knee replacement 04/07/2024
-Orthopedic not concern for infection.
-Continue with postop management.
#Hypertensive urgency uncontrolled secondary to abdominal pain
DC p.o. medication due to above. IV as needed medication.
Mild LFT elevation
Monitor
#Postop anemia
Trend daily. Transfuse with hemoglobin less than 7
#HLD
no meds
#Anxiety
no current meds
Other PMH:
Chronic cervical radicular pain
Chronic sciatica
Breast cancer status post right breast lumpectomy
DVT prophylaxis
SCDs, postop per colorectal
Full code
I spent a total of 52 minutes with the patient or on the floor. More than 50% of this time involved counseling and coordination of care.
Anticipated Discharge: > 48 hours
Subjective/Interval History
-
Date of Service: April 15, 2024
denies nausea
Objective Data
-
Labs:
Laboratory Results
04/15/24
06:06
WBC 27.9 H
Hgb 10.6 L
Hct 31.2 L
Plt Count 504 H
Sodium 128 L
Potassium 3.9
Chloride 95 L
Carbon Dioxide 22
BUN 21 H
Creatinine 0.6
Glucose 120 H
Calcium 7.9 L
Total Bilirubin 1.6 H
AST 42 H
ALT 21
Alkaline Phosphatase 117
Vital Signs:
Vital Signs
Temp Pulse Resp BP Pulse Ox
98.3 F 73 22 137/84 97
04/15/24 11:08 04/15/24 10:00 04/15/24 10:00 04/15/24 10:00 04/15/24 10:00
I&O
04/14/24 04/15/24 04/16/24
06:59 06:59 06:59
Intake Total 729 / 729 100 / 100
Output Total 1450 / 1450 1470 / 1470
Balance -721 / -721 -1370 / -1370
[2024-04-15] MEDS: TUMS EX (EXTRA STRENGTH) CHEWABLE 1 TABLET PO ×2 (13:00→23:47)
[2024-04-15] MEDS: MOTRIN 400 MG PO ×3 (13:24→23:42)
--- NOTE | 2024-04-15 15:09 | WOUNDNOTE ---
[facility] RN NOTE: Patient with colostomy creation for perforated diverticulitis on 04/14. Stoma is pink and budded. Ostomy supplies ordered to room and are at bedside. Patient states he will assist with ostomy care at home. Colostomy booklet
given to patient. Will follow up for ostomy teaching.
--- NOTE | 2024-04-15 15:32 | WOUNDNOTE ---
[facility] RN NOTE: With patient's verbal consent, a [employer] Secure Start Kit was ordered and will be shipped to patient's home.
--- NOTE | 2024-04-15 17:29 | CM ---
Patient with recent Rt knee replacement 04/07 with Dx Sepsis likely 2/2 suspected perforated sigmoid diverticulitis s/p ex lap, sigmoidectomy, end colostomy. O2 2L. NPO. Receiving Cardizem gtt, IV Abx. PT recommends HH. Seen by ostomy nurse.
Per nurse assessment this am; confused, forgetful.
CM continuing to follow for d/c needs.
Plan offer VN for SN for ostomy care and PT.
[2024-04-16] VITALS (13 sets, daily range): BP systolic 131–163; BP diastolic 56–81; PULSE 74; O2SAT 92; BMI 29.5
[2024-04-16] MEDS: NSS (PRESERVATIVE FREE) 10 ML IV ×2 (02:08→12:43)
[2024-04-16] MEDS: PROTONIX IV 40 MG IV ×2 (02:09→12:44)
--- NOTE | 2024-04-16 02:24 | PTCARENOTE ---
Throughout night pt c/o frequent belching and burning coming up throat unrelieved after tums. MICHAEL Chavez notified and ordered protonix IV push. med administered. Midline dsg with drainage no changed from previous shift. Colostomy stoma pink and
budded. Pt anxious and frustrated wondering if she 'will be okay' . Emotional support provided. Pt denies pain in abdomen when at rest but admits to some chronic sciatica pain. Offered to reposition, pt pulled up in bed but doesn't want to turn.
Call maddox within reach.
[2024-04-16] MEDS: CARDIZEM 125 IV ×2 (04:52→17:28)
[2024-04-16] MEDS: ZOFRAN 4 MG IV (05:01)
[2024-04-16] MEDS: ZOSYN 50 IV ×3 (05:11→17:20)
[2024-04-16 05:44] LABS: % Basophils 0.2 % (0-2); % Eosinophils 0.1 % (0-6); % Immature Granulocytes 3.8 % (0-0.5); % Lymphocytes 4.5 % (20.5-51.1); % Monocytes 5.1 % (1.7-9.3); % Neutrophils 86.3 % (42.2-75.2); Absolute Basophils 0.1 10^3/uL (0-0.2); Absolute Lymphocytes 1.2 10^3/uL (1.2-3.4); Absolute Monocytes 1.3 10^3/uL (0.1-0.6); Absolute Neutrophils 22.1 10^3/uL (1.4-6.5); Hematocrit 22.1 % (37.0-47.0); Mean Corp Hgb Conc. 35.3 g/dL (33.0-37.0); Mean Corpuscular Hgb 27.4 pg (27.0-31.0); Mean Corpuscular Volume 77.5 fL (81.0-99.0); Mean Platelet Volume 8.9 fL (7.4-10.4); Nucleated Red Blood Cells % 0 %; Platelet Count 455 10^3/uL (130-400); Red Blood Cell Count 2.85 10^6/uL (4.20-5.40); Red Cell Dist. Width 13.7 % (11.5-14.5); White Blood Cell Count 25.6 10^3/uL (4.8-10.8)
[2024-04-16 05:50] LABS: Hemoglobin 7.8 g/dL (12.0-16.0)
[2024-04-16 05:58] LABS: ALT (SGPT) 18 U/L (0-35); AST (SGOT) 26 U/L (14-36); Albumin 2.2 g/dl (3.5-5.0); Alkaline Phosphatase 91 U/L (38-126); Blood Urea Nitrogen 20 mg/dl (7-17); Calcium 6.5 mg/dl (8.4-10.2); Carbon Dioxide 22 mmol/L (22-30); Chloride 94 mmol/L (98-107); Estimated Creatinine Clearance 84 ml/min; Glucose 89 mg/dl (70-99); Potassium 3.6 mmol/L (3.5-5.1); Sodium 128 mmol/L (135-145); Total Protein 4.2 g/dl (6.3-8.2); eGFR > 60.00
--- NOTE | 2024-04-16 06:05 | PTCARENOTE ---
Addendum entered by Corina Orta RN 04/16/24 06:06:
Hgb drop from 10.6 to 7.8 today. Pt asymptomatic. MICHAEL alves made aware. Pt still with scant amount of output from colostomy, KAHLIL drain output 20 ccs. Drainage noted on midline aquacell. VSS.
Original Note:
Pt vomiting small amounts emesis this am appearing yellow/green. Pt states her stomach 'feels unsettled' Zofran administered, Pt upset she hasn't slept well and anxious about hayes cath being removed.
--- NOTE | 2024-04-16 07:17 | PTCARENOTE ---
Mas cath d/c'd per orders.
[2024-04-16] MEDS: MOTRIN PO ×3 (07:18→17:23)
[2024-04-16] MEDS: TYLENOL PO ×3 (07:18→17:23)
[2024-04-16] MEDS: NORMOSOL-R IV ×2 (07:37→21:10)
--- NOTE | 2024-04-16 07:39 | PTCARENOTE ---
Patient exhausted, states did not sleep well last night. Mas pulled at 0715, awaiting first void. Cardizem infusing at ordered dose. VSS. Patient flips between NSR and afib, rate controlled. Refused 0600 motrin/tylenol dose. Patient belching a lot
and c/o heartburn. Some nausea overnight reported, zofran and tums given with minimal relief. Dressings CDI. Abdomen distended, tender. Colostomy with no stool yet. at bedside. Call maddox in hand. Continuing to closely monitor.
[2024-04-16] MEDS: NORMOSOL-R 1000 IV ×2 (08:24→22:11)
[2024-04-16] MEDS: CALCIUM GLUCONATE 100 IV (08:24)
--- NOTE | 2024-04-16 09:48 | W.PN.CARDCBS ---
Addendum entered and electronically signed by Dano Herrera MD 04/16/24 12:38:
Daughter at bedside, patient without acute complaints at present no cardiovascular complaints
PMH/PSH/SH/FH: Reviewed
Allergies: Amoxicillin, statins
Outpatient cardiac meds: Aspirin 81 mg a day, HCTZ 12.5 mg a day, losartan 50 mg a day
Current medications: IV fluid, Zosyn, IV diltiazem,, as needed hydralazine and metoprolol
ROS: Negative except as above
148/74, pulse 73, respirate 16, afebrile, sats 93%
No acute distress, mildly uncomfortable, head neck exam unremarkable, limited lung exam, regular rate and rhythm, no murmurs, abdomen intact, ostomy, not much edema neuro nonfocal
EKG yesterday sinus rhythm, LVH
White count 25.6, hemoglobin 7.8, sodium 128, calcium 6.5, potassium 3.6, BUN and creatinine 20 and 0.5
Telemetry: Currently normal sinus rhythm, still with atrial fibrillation
Echocardiogram 04/12/2024: EF 55-60% with mild AI and TR
Impression: See below
Plan:
Despite intermittent atrial fibrillation, she looks relatively well from a cardiac standpoint. She is currently in sinus rhythm. Will continue diltiazem, consider transition to IV metoprolol. Again recommended anticoagulation when able, which
patient remains ambivalent about.
Blood pressure modestly elevated but still acceptable, does not yet require additional IV medication.
We will continue to follow.
Original Note:
Today's Communication / Plan
-
Continue HR control with Cardizem drip
Ongoing discussions regarding anticoagulation.
Impression / Plan
-
PCP: Dr. Julian Pro
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 Langley
Impression:
Admitted with perforated sigmoid diverticulitis 04/09/24
s/p exploratory laparotomy, sigmoidectomy and end colostomy 04/14/24
Recent right TKA 04/06/24
Newly diagnosed Afib with RVR 04/11/24
Hyponatremia
Postoperative anemia following right TKA
Hyperlipidemia
Hypertension
Lumbar spine disease with radiculopathy
h/o right breast cancer status postlumpectomy
Echo 04/12/2024: EF 55 to 60%, mild aortic regurgitation, mild tricuspid regurgitation
Plan:
-Presented with perforated sigmoid diverticulitis. s/p ex lap with sigmoidectomy and end colostomy 04/14/24.
-Also noted to have rapid atrial fibrillation 04/11/2024 which was a new diagnosis. Spontaneously converted to SR, however continues to have paroxysms of afib on tele.
-Remains NPO at this time. Colorectal surgery following.
-Continue HR control with Cardizem gtt. HRs stable both in and out of atrial fibrillation.
-Discussed anticoagulation w/ patient and family. They remain hesitant at this time. [id number] score is 3. Will continue to discuss as patient improves post-op.
-Patient just had a right TKA on 04/06/2024 and orthopedic surgery service has cleared patient for OAC if she is agreeable
-BP has overall been stable. Outpatient doses of HCTZ 12.5 mg daily and losartan 50 mg daily on hold while NPO.
-Continue post op care.
HPI: I had the pleasure to meet Jonas Thompson in 2122 for evaluation of new rapid atrial fibrillation. She is accompanied today by her significant other, Danis. Jonas is a 73-year-old female with a past medical history of hypertension, dyslipidemia
who reports reaction to Zocor and has declined trial of other lipid-lowering therapy, breast cancer status post lumpectomy, lumbar radiculopathy, osteoarthritis, right shoulder bone spur with chronic pain, left total knee replacement, and more
recently a right total knee replacement 04/06/[address] Zuniga. She has not previously seen cardiology. Her significant other, Danis, does have atrial fibrillation and is followed by cardiology at [place]. She presented to [facility]
with severe abdominal pain and postop constipation found to have sigmoid diverticulitis complicated by small perforation by CT and x-ray imaging. There was no abscess seen on initial CT per surgery. She also had acute urinary retention requiring
straight cath. She was made n.p.o. for bowel rest and placed on IV antibiotics. Colorectal surgery is following however there is no urgent plan for surgery. This morning around 7 AM she was noted to be in rapid atrial fibrillation which is a new
diagnosis. Fortunately, she denies tachycardia or palpitations. She denies chest pain or shortness of breath. She was started on IV Cardizem drip following an IV Cardizem bolus and is currently on an infusion of 15 mg/h with heart rates still in
the 140s�160s. Past medical/surgical history: Hypertension, untreated dyslipidemia/reaction to Zocor and has declined trial of other lipid-lowering therapy, right breast cancer status post lumpectomy, lumbar spine disease status post right L3-4,
L4-5 ILESI in 2022, left total knee replacement surgery 04/08/2023, right total knee replacement surgery 04/06/2024, right shoulder pain/bone spur.
Progress Note - Pole Lift Operator
Subjective
Date of Service: April 16, 2024
Feeling tired, no chest pain/palpitations.
Objective
Labs:
04/16/24 05:12
04/16/24 05:12
Labs
Hgb 7.8 g/dL (12.0-16.0) L D 04/16/24 05:12
Hct 22.1 % (37.0-47.0) L 04/16/24 05:12
Plt Count 455 10^3/uL (130-400) H 04/16/24 05:12
PT 15.2 Sec (11.4-14.6) H 04/14/24 14:03
INR 1.19 04/14/24 14:03
APTT 31.8 Sec (23.4-35.0) 04/14/24 14:03
Sodium 128 mmol/L (135-145) L 04/16/24 05:12
Potassium 3.6 mmol/L (3.5-5.1) 04/16/24 05:12
BUN 20 mg/dl (7-17) H 04/16/24 05:12
Creatinine 0.5 mg/dL (0.6-1.0) L 04/16/24 05:12
Glucose 89 mg/dl (70-99) 04/16/24 05:12
Vital Signs and I&O:
Vital Signs
Temp Pulse Resp BP Pulse Ox
97.7 F 73 16 148/74 93
04/16/24 07:25 04/16/24 06:00 04/16/24 06:00 04/16/24 06:00 04/16/24 06:00
Vital Signs
Temp Pulse Resp BP Pulse Ox
97.7 F 73 16 148/74 93
04/16/24 07:25 04/16/24 06:00 04/16/24 06:00 04/16/24 06:00 04/16/24 06:00
Intake & Output
04/14/24 04/15/24 04/16/24 04/17/24
06:59 06:59 06:59 06:59
Intake Total 729 / 729 100 / 100 1200 / 1200
Output Total 1450 / 1450 1470 / 1470 1290 / 1590 300 / 300
Balance -721 / -721 -1370 / -1370 -90 / -390 -300 / -300
Physical Exam
Physical Exam
GEN: No distress, awake, alert, oriented x3
HEENT: supple, anicteric, mmm
LUNGS: CTA, no wheezes/rales
CV: Reg, S1/S2, no murmur
EXT: No clubbing, cyanosis, or edema
NEURO: Gross non-focal
SKIN: Warm, dry, no rash
--- NOTE | 2024-04-16 11:18 | W.PN.HOSP.TC ---
Today's Communication/Plan
-
Monitor vital signs and see plan
Add PPI
TPN per colorectal
Awaiting bowel function return
Continue antibiotics
on dilt gtt
Discussed with family at bedside
Assessment / Plan
Assessment / Plan
General: pain
HEENT: NormoCephalic, Anicteric
Respiratory: Clear; No Wheezes, Rales or Rhonchi
Cardiac: S1/S2 and regularly regular
GI:+ostomy
Musculoskeletal: No Clubbing, No Cyanosis and Edema, Right Lower Extremity (Right knee with Aquacel dressing in place, surrounding healing ecchymosis with surrounding warmth of anterior thigh/medial thigh)
Neuro: AO x 3, No Motor Deficits, Nonfocal/grossly intact
Psych: Anxious
Sepsis likely 2/2 suspected perforated sigmoid diverticulitis
-Was constipated prior to arrival. Patient is status post right knee replacement surgery
-Initial imaging was consistent with perforated sigmoid diverticulitis, repeat imaging 04/14 with worsening perforation on CT. Status post ex lap, sigmoidectomy, end colostomy. Continue with antibiotics. Continue with n.p.o. per surgery. Monitor
ostomy function
Colorectal surgery following; bowel function does not return then likely will need TPN per surgery
New onset of atrial fibrillation with rapid ventricular response
back in afib with RVR 04/14; now back in NSR
Continue with diltiazem drip for now, cardiology following
-Discussed with orthopedic-okay to start patient on full dose of anticoagulation from orthopedic perspective with recent knee surgery. Discussed with Dr. Zuniga on 04/11/2024. Currently anticoagulation is on hold given recent surgery
cw dilt gtt; IV pushes metoprolol prn
CHADVASC 3, will need anticoagulation eventually. When cleared from colorectal surgery standpoint
-Echo noted
-Cardiology following
Hypokalemia
-replete/monitor
#Hyponatremia poss siadh/ pain / polydipsia
Na 128 today; monitor
#s/p Right knee replacement 04/07/2024
-Orthopedic not concern for infection.
-Continue with postop management.
Dr. Zuniga will stop by 04/16 for wound dressing
#Hypertensive urgency uncontrolled secondary to abdominal pain
now on diltiazem; IV hydralazine, metoprolol as needed
Hypocalcemia
Replete
Mild LFT elevation
Monitor
# Anemia likely secondary to postop; also has some dilutional component
Trend daily. Transfuse with hemoglobin less than 7
#HLD
no meds
#Anxiety
no current meds
Other PMH:
Chronic cervical radicular pain
Chronic sciatica
Breast cancer status post right breast lumpectomy
DVT prophylaxis
SCDs, postop per colorectal
Full code
I spent a total of 51 minutes with the patient or on the floor. More than 50% of this time involved counseling and coordination of care.
Anticipated Discharge: > 48 hours
Subjective/Interval History
-
Date of Service: April 16, 2024
has some pain
Objective Data
-
Labs:
Laboratory Results
04/16/24
05:12
WBC 25.6 H
Hgb 7.8 L D
Hct 22.1 L
Plt Count 455 H
Sodium 128 L
Potassium 3.6
Chloride 94 L
Carbon Dioxide 22
BUN 20 H
Creatinine 0.5 L
Glucose 89
Calcium 6.5 L*
Total Bilirubin 1.0
AST 26
ALT 18
Alkaline Phosphatase 91
Vital Signs:
Vital Signs
Temp Pulse Resp BP Pulse Ox
97.7 F 73 16 148/74 93
04/16/24 07:25 04/16/24 06:00 04/16/24 06:00 04/16/24 06:00 04/16/24 06:00
I&O
04/15/24 04/16/24 04/17/24
06:59 06:59 06:59
Intake Total 100 / 100 1200 / 1200
Output Total 1470 / 1470 1290 / 1590 300 / 300
Balance -1370 / -1370 -90 / -390 -300 / -300
--- NOTE | 2024-04-16 12:46 | W.PN.CRS1 ---
Today's Communication / Plan
-
continue npo
repeat H/H
wound RN to change bandage
PICC/TPN
Assessment/Plan
-
73-year-old female with PMH of HTN, sciatica, breast cancer s/p lumpectomy, anxiety and recent right R TKR on 04/06/24 who presents with 1 day of acute abdominal pain, never happened to her before; associated with constipation (BM's were small and
hard), no N/V, CP/SOB no urinary symptoms; WBC 26.7, CT�initially read as inflammation of the bowel mesentery, but reviewed by radiology 04/10 noting flecks of free air in the left abdomen associated with diverticulitis, no free fluid or abscess;
patient was initially admitted with concern of significant constipation, but re-read of CT confirms perforated diverticulitis; attempted non-operative mgmt as there was no peritonitis or hemodynamic instability; on HD 2, she went into afib with RVR,
but converted back to sinus with metoprolol; on HD 5, she had a bump in her WBC and flipped back into afib with RVR; a repeat CT showed a large intrabdominal abscess with worsening free air
POD 1 exlap, sigmoidectomy, end-colostomy
AFVSS
WBC 25.6 from 27.9, Hb 7.8 from 10.6
-Perforated diverticulitis, s/p attempt at non-op mgmt
-trend WBC, starting to downtrend
-cont Zosyn x4 days postop
� Cont NPO with sips, ok for PO meds; await return of bowel function, expect to be delayed due to intra-abdominal inflammation, if continues to vomit, will need NGT
-TPN/PICC today
-hold all bowel regimen
- Hb down to 7.8, repeat H/H this afternoon.
- Wound RN notified okay to change midline aquacell.
� Appreciate cards; continue dilt gtt for afib
� Cont DVT PPx with Lovenox; hold therapeutic AC
� Continue pain control with Tylenol, Toradol and Dilaudid 0.5/1 mg as needed
- OOB/IS, encourge ambulation; appreciate PT
- D/C hayes
� Appreciate hospitalist
Subjective Data
Procedure
04/14/24 - Ex lap, sigmoidectomy, end colostomy
Subjective Data
Date of Service: April 16, 2024
Patient states she has not slept a lot. She vomited a few times overnight. She has some flatus in her bag. She was off an on nauseous this morning.
Objective Data
-
Vital Signs
Temp Pulse Resp BP Pulse Ox
97.7 F 73 16 148/74 93
04/16/24 07:25 04/16/24 06:00 04/16/24 06:00 04/16/24 06:00 04/16/24 06:00
Intake & Output
04/15/24 04/16/24 04/17/24
06:59 06:59 06:59
Intake Total 100 / 100 1200 / 1200
Output Total 1470 / 1470 1290 / 1590 300 / 300
Balance -1370 / -1370 -90 / -390 -300 / -300
Intake:
Oral fluids 0 / 0
IV fluids (Total) 100 / 100 1100 / 1100
normosol 100 / 100
IV piggybacks 100 / 100
Output:
Drain Output (Total) 40 / 40 40 / 40
Right Abdomen Jeramie-Govea 40 / 40 40 / 40
Urine, Hayes 855 / 855 800 / 1100 300 / 300
Urine, Voided 575 / 575 450 / 450
Lab Results
04/16/24 05:12
Physical Exam
-
General: No Acute Distress and AOx3
Abdomen: Soft, Non Distended, Tender (around midline incision) and Other (colostomy warm and pink)
Skin: Warm and Dry
--- NOTE | 2024-04-16 13:19 | W.PN.ORTHO ---
Today's Communication / Plan
-
Right knee surgical wound is healing as expected. Fresh dressing applied. Will keep incision covered while patient is hospitalized.
Appreciate excellent care from GI surgery and cardiology.
Assessment
.
Distal Motor Intact: Yes
Dressing:
Right knee wound clean dry and intact. Fresh dressing applied.
Plan
.
Surgery / Date: S/P R TKA 04/06
Activity:
Out of bed.
PT/OT
Subjective
.
.:
Patient resting comfortably.
Vital Signs and Labs
.
Vital Signs and Labs:
Lab Results
04/16/24 05:12
Temp Pulse Resp BP Pulse Ox
97.7 F 76 20 162/71 93
04/16/24 07:25 04/16/24 12:00 04/16/24 12:00 04/16/24 12:00 04/16/24 12:00
PT 15.2 Sec (11.4-14.6) H 04/14/24 14:03
INR 1.19 04/14/24 14:03
[2024-04-16 15:33] LABS: Hematocrit 23.7 % (37.0-47.0); Hemoglobin 8.3 g/dL (12.0-16.0)
[2024-04-16 15:49] LABS: ALT (SGPT) 23 U/L (0-35); AST (SGOT) 30 U/L (14-36); Albumin 2.5 g/dl (3.5-5.0); Alkaline Phosphatase 97 U/L (38-126); Blood Urea Nitrogen 21 mg/dl (7-17); Calcium 8.2 mg/dl (8.4-10.2); Carbon Dioxide 26 mmol/L (22-30); Chloride 96 mmol/L (98-107); Estimated Creatinine Clearance 84 ml/min; Glucose 85 mg/dl (70-99); Magnesium 2.2 mg/dl (1.6-2.3); Potassium 3.4 mmol/L (3.5-5.1); Sodium 130 mmol/L (135-145); Total Bilirubin 1.2 mg/dl (0.2-1.3); Total Protein 4.8 g/dl (6.3-8.2); Triglycerides 160 mg/dl (10-149); eGFR > 60.00
--- NOTE | 2024-04-16 16:23 | WOUNDNOTE ---
[facility] RN NOTE: Patient visited for removal of Aquacell dressing, per surgery and ostomy appliance change. Aquacell dressing removed, santy covered with moderate amount of dark blood. Santy covered with sterile 4x4 and micropore tape. Colostomy is
light pink and budded, no drainage at time, peristomal skin intact. Dressing changed with barrier # [id number], and pouch # [id number]. Patient tolerated well. Some general care guidelines of ostomy care reviewed, and ostomy booklet left at bedside. RN
Brooke given update. Will continue to follow for ostomy teaching.
--- NOTE | 2024-04-16 17:01 | CM ---
Patient with recent Rt knee replacement 04/07 with Dx Sepsis likely 2/2 suspected perforated sigmoid diverticulitis s/p ex lap, sigmoidectomy, end colostomy. NPO- receiving TPN. PICC placement today. KAHLIL drain. Receiving Cardizem gtt, IV Abx. PT
recommends HH. Seen by ostomy nurse.
CM continuing to follow for d/c needs.
Plan offer VN for SN for ostomy care and PT.
[2024-04-16] MEDS: THIAMINE INJECTION 100 MG IV (17:15)
[2024-04-16] MEDS: KCL 270 MEQ IV (17:16)
[2024-04-16] MEDS: MOTRIN 400 MG PO (18:42)
[2024-04-16] MEDS: TYLENOL 1000 MG PO (18:42)
[2024-04-16] MEDS: LOPRESSOR 5 MG IV (21:33)
[2024-04-16] MEDS: Parenteral Nutrition, Central 1100 IV (21:50)
[2024-04-16 23:49] LABS: Glucose - Point of Care 111 mg/dl (70-99)
[2024-04-17] VITALS (14 sets, daily range): BP systolic 117–178; BP diastolic 63–104; PULSE 70; O2SAT 96; BMI 29.8
[2024-04-17] MEDS: MOTRIN 400 MG PO ×5 (00:14→23:27)
[2024-04-17] MEDS: ZOSYN 50 IV ×5 (00:14→23:27)
[2024-04-17] MEDS: TYLENOL 1000 MG PO ×4 (00:14→23:26)
[2024-04-17] MEDS: APRESOLINE 10 MG IV (00:22)
[2024-04-17] MEDS: DILAUDID 1 MG IV (00:29)
[2024-04-17 04:06] LABS: % Basophils 0.2 % (0-2); % Eosinophils 0.5 % (0-6); % Immature Granulocytes 2.9 % (0-0.5); % Lymphocytes 6.9 % (20.5-51.1); % Neutrophils 84.5 % (42.2-75.2); Absolute Eosinophils 0.1 10^3/uL (0-0.7); Absolute Immature Granulocytes 0.5 10^3/uL (0-0.05); Absolute Lymphocytes 1.2 10^3/uL (1.2-3.4); Absolute Monocytes 0.9 10^3/uL (0.1-0.6); Absolute Neutrophils 14.7 10^3/uL (1.4-6.5); Hematocrit 22.6 % (37.0-47.0); Hemoglobin 7.5 g/dL (12.0-16.0); Mean Corp Hgb Conc. 33.2 g/dL (33.0-37.0); Mean Corpuscular Hgb 27.3 pg (27.0-31.0); Mean Corpuscular Volume 82.2 fL (81.0-99.0); Mean Platelet Volume 8.8 fL (7.4-10.4); Nucleated Red Blood Cells % 0 %; Platelet Count 421 10^3/uL (130-400); Red Blood Cell Count 2.75 10^6/uL (4.20-5.40); White Blood Cell Count 17.4 10^3/uL (4.8-10.8)
[2024-04-17 04:26] LABS: ALT (SGPT) 23 U/L (0-35); AST (SGOT) 29 U/L (14-36); Albumin 2.3 g/dl (3.5-5.0); Alkaline Phosphatase 84 U/L (38-126); Blood Urea Nitrogen 20 mg/dl (7-17); Calcium 8.1 mg/dl (8.4-10.2); Carbon Dioxide 27 mmol/L (22-30); Chloride 101 mmol/L (98-107); Estimated Creatinine Clearance 85 ml/min; Glucose 115 mg/dl (70-99); Magnesium 2.3 mg/dl (1.6-2.3); Phosphorus 2.6 mg/dl (2.5-4.5); Potassium 3.6 mmol/L (3.5-5.1); Sodium 131 mmol/L (135-145); Total Bilirubin 0.8 mg/dl (0.2-1.3); Total Protein 4.4 g/dl (6.3-8.2); eGFR > 60.00
[2024-04-17] MEDS: MOTRIN PO (05:54)
[2024-04-17] MEDS: TYLENOL PO ×2 (05:54→17:33)
[2024-04-17 06:13] LABS: Glucose - Point of Care 123 mg/dl (70-99)
--- NOTE | 2024-04-17 07:11 | W.PN.HOSP.TC ---
Today's Communication/Plan
-
Add PPI
TPN, diet as per colorectal
Continue antibiotics
dilt gtt
pain control
Monitor H&H
Assessment / Plan
Assessment / Plan
General: no acute distress appears comfortable at this time
HEENT: NormoCephalic, Anicteric
Respiratory: Clear; No Wheezes, Rales or Rhonchi
Cardiac: S1/S2 and regularly regular
GI:+ostomy
Musculoskeletal: No Clubbing, No Cyanosis and Edema, Right Lower Extremity (Right knee with Aquacel dressing in place, surrounding healing ecchymosis with surrounding warmth of anterior thigh/medial thigh)
Neuro: AO x 3, No Motor Deficits, Nonfocal/grossly intact
Psych: Calm
Sepsis likely 2/2 suspected perforated sigmoid diverticulitis
-Was constipated prior to arrival. Patient is status post right knee replacement surgery
-Initial imaging was consistent with perforated sigmoid diverticulitis, repeat imaging 04/14 with worsening perforation on CT. Status post ex lap, sigmoidectomy, end colostomy. Continue with antibiotics. Continue with n.p.o. per surgery. Monitor
ostomy function
Colorectal surgery following; started on TPN, trial clears
cont zosyn minimum 4 days post-op as per surgery
New onset of atrial fibrillation with rapid ventricular response
back in afib with RVR 04/14; now back in NSR
Continue with diltiazem drip for now, cardiology following
-Discussed with orthopedic-okay to start patient on full dose of anticoagulation from orthopedic perspective with recent knee surgery. Discussed with Dr. Zuniga on 04/11/2024. Currently anticoagulation is on hold given recent surgery
cw dilt gtt; IV pushes metoprolol prn
CHADVASC 3, will need anticoagulation eventually. When cleared from colorectal surgery standpoint
-Echo noted
-Cardiology eval appreciated patient defers therapeutic anticoagulation at this time
Hypokalemia
-monitor and replete as necessary.
#Hyponatremia poss siadh/ pain / polydipsia
improving 130s
#s/p Right knee replacement 04/07/2024
-Orthopedic not concern for infection.
-Continue with postop management.
Dr. Efrain gonzales 04/16 appreciated
#Hypertensive urgency uncontrolled secondary to abdominal pain
now on diltiazem; IV hydralazine, metoprolol as needed
Hypocalcemia
Replete
Mild LFT elevation
Monitor
# Anemia likely secondary to postop; also has some dilutional component
Trend daily. Transfuse with hemoglobin less than 7
#HLD
no meds
#Anxiety
no current meds
Other PMH:
Chronic cervical radicular pain
Chronic sciatica
Breast cancer status post right breast lumpectomy
DVT prophylaxis
SCDs, postop per colorectal
Full code
I spent a total of 51 minutes with the patient or on the floor. More than 50% of this time involved counseling and coordination of care.
Anticipated Discharge: > 48 hours
Subjective/Interval History
-
Date of Service: April 17, 2024
Seen and examined at bedside in no acute distress resting comfortably in bed. Reports overall feeling well. Pain controlled at this time. Reports flatus no bowel movements.
Objective Data
-
Labs:
Laboratory Results
04/17/24
03:39
WBC 17.4 H
Hgb 7.5 L
Hct 22.6 L
Plt Count 421 H
Sodium 131 L
Potassium 3.6
Chloride 101
Carbon Dioxide 27
BUN 20 H
Creatinine 0.5 L
Glucose 115 H
Calcium 8.1 L
Total Bilirubin 0.8
AST 29
ALT 23
Alkaline Phosphatase 84
Vital Signs:
Vital Signs
Temp Pulse Resp BP Pulse Ox
97.1 F 65 12 123/66 92
04/17/24 03:34 04/17/24 04:00 04/17/24 04:00 04/17/24 04:00 04/17/24 04:00
I&O
04/16/24 04/17/24 04/18/24
06:59 06:59 06:59
Intake Total 1200 / 1200 1280 / 1280
Output Total 1290 / 1590 730 / 730
Balance -90 / -390 550 / 550
--- NOTE | 2024-04-17 07:52 | PTCARENOTE ---
Rosario oob to br with rolling walker without incident. Cardizem to 5mg. Pt in NSR hr 74.bp 133/69. @ family members at bedside
[2024-04-17] MEDS: THIAMINE INJECTION 100 MG IV (08:25)
[2024-04-17] MEDS: PROTONIX IV 40 MG IV (08:25)
[2024-04-17] MEDS: NSS (PRESERVATIVE FREE) 10 ML IV (08:26)
[2024-04-17] MEDS: CARDIZEM 125 IV (08:26)
--- NOTE | 2024-04-17 08:57 | W.PN.CARDCBS ---
Today's Communication / Plan
-
IV Dilt 5 mg an hour
Patient defers on oral anticoagulation at this time ongoing discussion
Following daily post surgery
Impression / Plan
-
PCP: Dr. Julian Pro
Boardmarker: None, initially seen by Dr. Langley
Impression:
Admitted with perforated sigmoid diverticulitis 04/09/24
s/p exploratory laparotomy, sigmoidectomy and end colostomy 04/14/24
Recent right TKA 04/06/24
Newly diagnosed Afib with RVR 04/11/24
Hyponatremia
Postoperative anemia following right TKA
Hyperlipidemia
Hypertension
Lumbar spine disease with radiculopathy
h/o right breast cancer status postlumpectomy
Echo 04/12/2024: EF 55 to 60%, mild aortic regurgitation, mild tricuspid regurgitation
Plan:
-Presented with perforated sigmoid diverticulitis. s/p ex lap with sigmoidectomy and end colostomy 04/14/24.
-Also noted to have rapid atrial fibrillation 04/11/2024 which was a new diagnosis. Spontaneously converted to SR, however continues to have paroxysms of afib on tele.
-Remains NPO at this time. Colorectal surgery following. She now has a PICC line and they are instituting parenteral nutrition.
-Continue HR control with Cardizem gtt. HRs stable both in and out of atrial fibrillation. She has not had further atrial fibrillation over the last 24 hours and we will lower Cardizem to 5 mg an hour and continue
-Discussed anticoagulation w/ patient and family. They remain hesitant at this time. [id number] score is 3. Will continue to discuss as patient improves post-op.
-Patient just had a right TKA on 04/06/2024 and orthopedic surgery service has cleared patient for OAC if she is agreeable
-BP has overall been stable. Outpatient doses of HCTZ 12.5 mg daily and losartan 50 mg daily on hold while NPO.
-Continue post op care.
HPI: I had the pleasure to meet Jonas Thompson in [id number] for evaluation of new rapid atrial fibrillation. She is accompanied today by her significant other, Danis. Jonas is a 73-year-old female with a past medical history of hypertension, dyslipidemia
who reports reaction to Zocor and has declined trial of other lipid-lowering therapy, breast cancer status post lumpectomy, lumbar radiculopathy, osteoarthritis, right shoulder bone spur with chronic pain, left total knee replacement, and more
recently a right total knee replacement 04/06/[address] Zuniga. She has not previously seen cardiology. Her significant other, Danis, does have atrial fibrillation and is followed by cardiology at [place]. She presented to [facility]
with severe abdominal pain and postop constipation found to have sigmoid diverticulitis complicated by small perforation by CT and x-ray imaging. There was no abscess seen on initial CT per surgery. She also had acute urinary retention requiring
straight cath. She was made n.p.o. for bowel rest and placed on IV antibiotics. Colorectal surgery is following however there is no urgent plan for surgery. This morning around 7 AM she was noted to be in rapid atrial fibrillation which is a new
diagnosis. Fortunately, she denies tachycardia or palpitations. She denies chest pain or shortness of breath. She was started on IV Cardizem drip following an IV Cardizem bolus and is currently on an infusion of 15 mg/h with heart rates still in
the 140s�160s. Past medical/surgical history: Hypertension, untreated dyslipidemia/reaction to Zocor and has declined trial of other lipid-lowering therapy, right breast cancer status post lumpectomy, lumbar spine disease status post right L3-4,
L4-5 ILESI in 2022, left total knee replacement surgery 04/08/2023, right total knee replacement surgery 04/06/2024, right shoulder pain/bone spur.
Progress Note - Boardmarker
Subjective
Date of Service: April 17, 2024
Total Time Spent with Patient (in minutes): Feels a little better today
Objective
Labs:
04/17/24 03:39
04/17/24 03:39
Labs
Hgb 7.5 g/dL (12.0-16.0) L 04/17/24 03:39
Hct 22.6 % (37.0-47.0) L 04/17/24 03:39
Plt Count 421 10^3/uL (130-400) H 04/17/24 03:39
PT 15.2 Sec (11.4-14.6) H 04/14/24 14:03
INR 1.19 04/14/24 14:03
APTT 31.8 Sec (23.4-35.0) 04/14/24 14:03
Sodium 131 mmol/L (135-145) L 04/17/24 03:39
Potassium 3.6 mmol/L (3.5-5.1) 04/17/24 03:39
BUN 20 mg/dl (7-17) H 04/17/24 03:39
Creatinine 0.5 mg/dL (0.6-1.0) L 04/17/24 03:39
Glucose 115 mg/dl (70-99) H 04/17/24 03:39
Vital Signs and I&O:
Vital Signs
Temp Pulse Resp BP Pulse Ox
98.1 F 65 12 123/66 92
04/17/24 07:55 04/17/24 04:00 04/17/24 04:00 04/17/24 04:00 04/17/24 04:00
Vital Signs
Temp Pulse Resp BP Pulse Ox
98.1 F 65 12 123/66 92
04/17/24 07:55 04/17/24 04:00 04/17/24 04:00 04/17/24 04:00 04/17/24 04:00
Intake & Output
04/15/24 04/16/24 04/17/24 04/18/24
06:59 06:59 06:59 06:59
Intake Total 100 / 100 1200 / 1200 1280 / 1280
Output Total 1470 / 1470 1290 / 1590 730 / 730
Balance -1370 / -1370 -90 / -390 550 / 550
Physical Exam
Physical Exam
�
����Physical Exam
�
��������������������General:� no apparent distress, not acutely ill
�
��������������������������Neck:� supple. no meningeal signs. normal psoterior pharynx
������������������������
���������������������������Heart:� s1/s2 regular rate and rhythm, no murmur. equal radial pulses.
�
��������������������������Lungs:�� no acute respiratory distress. clear bilaterally
�
����������������������Abdomen:normal bowel sounds. not tender. no CVAT
�
��������������������������Neuro:� alert and oriented. no focal neurological deficits
�
������������������������������Skin:�� no rash
�
�����������������������Psychiatric:well kept. interactive and cooperative
�
����������������������Extremities:� no edema. no calf tenderness. negative homans. good distal pulses
Left arm PICC
�
�
��
�
[2024-04-17 11:03] LABS: Hematocrit 22.5 % (37.0-47.0); Hemoglobin 7.9 g/dL (12.0-16.0)
--- NOTE | 2024-04-17 11:44 | W.PN.CRS1 ---
Today's Communication / Plan
-
Trial clear liquids
Assessment/Plan
-
73-year-old female s/p recent TKR presenting with abdominal pain and complicated diverticulitis. No improvement with nonoperative management.
POD #3 exlap, sigmoidectomy, end-colostomy
New onset AFib this admission: cards following
Ortho following given recent joint surgery
AFVSS
+Leukocytosis, now trending down
Acute anemia secondary to hemodilution/intraoperative losses: stable now
Evidence of early bowel recovery today: passing flatus. tolerating sips of clears. no n/v.
Voiding
--Trend WBC's. Continue Zosyn for minimum 4 days post op
� Trial of clears
-TPN via PICC: renewed
-No PO bowel regimen
- Follow labs
- Local wound care. Ostomy nurse following with us
� Appreciate cards; continue dilt gtt for afib
� Cont DVT PPx with Lovenox; hold therapeutic AC
� Continue scheduled pain control with Tylenol, Ibuprofen and Dilaudid 0.5/1 mg as needed
- OOB/IS, encourage ambulation; appreciate PT
� Appreciate hospitalist
Subjective Data
Procedure
04/14/24 - Ex lap, sigmoidectomy, end colostomy
Subjective Data
Date of Service: April 17, 2024
Patient seen and examined at bedside. Denies n/v. Passing a lot of flatus from stoma, 'burping' the bag today. Questions about stoma care addressed, patient expressing difficulty dealing with a new stoma psychosocially.
Objective Data
-
Vital Signs
Temp Pulse Resp BP Pulse Ox
98.1 F 71 15 142/94 96
04/17/24 07:55 04/17/24 10:00 04/17/24 10:00 04/17/24 10:00 04/17/24 10:00
Intake & Output
04/16/24 04/17/24 04/18/24
06:59 06:59 06:59
Intake Total 1200 / 1200 1280 / 1280
Output Total 1290 / 1590 730 / 730
Balance -90 / -390 550 / 550
Intake:
IV fluids (Total) 1100 / 1100 720 / 720
IV piggybacks 100 / 100 100 / 100
TPN/PPN 460 / 460
Output:
Drain Output (Total) 40 / 40 80 / 80
Right Abdomen Jeramie-Govea 40 / 40 80 / 80
Urine, Mas 800 / 1100 300 / 300
Urine, Voided 450 / 450 350 / 350
Lab Results
04/17/24 10:52
04/17/24 03:39
Physical Exam
-
General: No Acute Distress and AOx3
Abdomen: Soft, Non Distended, Tender (around midline incision) and Other (stoma warm and pink, flatus in appliance without stool as of yet)
Skin: Warm and Dry
Wound: Other (staple spaced apart/sofy in place with dried blood, well approximated. Michael with serous fluid)
[2024-04-17 12:43] LABS: Glucose - Point of Care 138 mg/dl (70-99)
[2024-04-17] MEDS: NORMOSOL-R IV (15:00)
[2024-04-17 18:03] LABS: Glucose - Point of Care 135 mg/dl (70-99)
[2024-04-17] MEDS: Parenteral Nutrition, Central 1410 IV (21:14)
[2024-04-17] MEDS: LOPRESSOR 5 MG IV (22:11)
[2024-04-17 23:52] LABS: Glucose - Point of Care 169 mg/dl (70-99)
[2024-04-18] VITALS (21 sets, daily range): BP systolic 157–184; BP diastolic 58–108; PULSE 88; O2SAT 90; BMI 30.1
--- NOTE | 2024-04-18 | PTCARENOTE ---
Addendum entered by Lavonne Hernandez RN 04/18/24 03:10:
Pt having 10/10 pain in ABD and right side/back. Pt given PRN Dilaudid and one time order Mylicon from kadie VYAS. Pt bowel sounds hyperactive new colostomy putting out brown liquid stool.
Original Note:
Pt having concern about infection is she is moved to a double room. Pt having elevated HR with HTN, prn metoprolol given. Assessment, care and vitals as charted.
[2024-04-18] MEDS: DILAUDID 1 MG IV (02:38)
[2024-04-18] MEDS: MYLICON 80 MG PO (02:54)
[2024-04-18] MEDS: DILAUDID 0.5 MG IV (04:52)
[2024-04-18] MEDS: APRESOLINE 10 MG IV ×3 (04:59→22:10)
[2024-04-18] MEDS: ZOSYN 50 IV ×4 (05:01→23:34)
[2024-04-18] MEDS: MOTRIN 400 MG PO ×4 (05:01→23:31)
[2024-04-18] MEDS: TYLENOL 1000 MG PO ×4 (05:01→23:31)
[2024-04-18 05:43] LABS: Glucose - Point of Care 161 mg/dl (70-99)
[2024-04-18] MEDS: CARDIZEM 125 IV (05:57)
[2024-04-18 06:02] LABS: Hematocrit 24.9 % (37.0-47.0); Hemoglobin 8.2 g/dL (12.0-16.0); Mean Corp Hgb Conc. 32.9 g/dL (33.0-37.0); Mean Corpuscular Hgb 28.9 pg (27.0-31.0); Mean Corpuscular Volume 87.7 fL (81.0-99.0); Mean Platelet Volume 9.2 fL (7.4-10.4); Platelet Count 465 10^3/uL (130-400); Red Blood Cell Count 2.84 10^6/uL (4.20-5.40); Red Cell Dist. Width 15.2 % (11.5-14.5); White Blood Cell Count 17.1 10^3/uL (4.8-10.8)
--- NOTE | 2024-04-18 06:32 | W.PN.HOSP.TC ---
Today's Communication/Plan
-
TPN/diet as per Surgery
Cardizem gtt transition to PO as per cardio
resume home losartan
cont BP and glycemic control
cont abx
monitor H&H trend WBC
Assessment / Plan
Assessment / Plan
General: no acute distress appears comfortable at this time
HEENT: NormoCephalic, Anicteric
Respiratory: Clear; No Wheezes, Rales or Rhonchi
Cardiac: S1/S2 and regularly regular
GI:+ostomy
Musculoskeletal: No Clubbing, No Cyanosis and Edema, Right Lower Extremity (Right knee with Aquacel dressing in place, surrounding healing ecchymosis with surrounding warmth of anterior thigh/medial thigh)
Neuro: AO x 3, No Motor Deficits, Nonfocal/grossly intact
Psych: Calm
Sepsis likely 2/2 suspected perforated sigmoid diverticulitis
-Was constipated prior to arrival. Patient is status post right knee replacement surgery
-Initial imaging was consistent with perforated sigmoid diverticulitis, repeat imaging 04/14 with worsening perforation on CT. Status post ex lap, sigmoidectomy, end colostomy. Continue with antibiotics. Continue with n.p.o. per surgery. Monitor
ostomy function
Colorectal surgery following; started on TPN, trial clears tolerated well, bowel function returning had bowel movement, diet advanced to full liquid.
cont zosyn minimum 4 days post-op as per surgery, consider extended course given persistent leukocytosis
New onset of atrial fibrillation with rapid ventricular response
back in afib with RVR 04/14; now back in NSR
Continue with diltiazem drip for now, cardiology following
-Discussed with orthopedic-okay to start patient on full dose of anticoagulation from orthopedic perspective with recent knee surgery. Discussed with Dr. Zuniga on 04/11/2024. Currently anticoagulation is on hold given recent surgery
IV pushes metoprolol prn
CHADVASC 3, will need anticoagulation eventually. When cleared from colorectal surgery standpoint
-Echo noted
-Cardiology eval appreciated patient defers therapeutic anticoagulation at this time, cardizem gtt transitioned to PO
Hypokalemia
-monitor and replete as necessary.
#Hyponatremia poss siadh/ pain / polydipsia
improving 130s
#s/p Right knee replacement 04/07/2024
-Orthopedic not concern for infection.
-Continue with postop management.
Dr. Efrain gonzales 04/16 appreciated
#Hypertensive urgency uncontrolled secondary to abdominal pain
now on diltiazem; IV hydralazine prn, metoprolol as needed
home losartan resumed, home HCTz remains on hold
Hypocalcemia
monitor and replete as necessary
Mild LFT elevation
resolved
# Anemia likely secondary to postop; also has some dilutional component
H&H improving
#HLD
no meds
#Anxiety
no current meds
Other PMH:
Chronic cervical radicular pain
Chronic sciatica
Breast cancer status post right breast lumpectomy
DVT prophylaxis
SCDs, postop per colorectal
Full code
I spent a total of 51 minutes with the patient or on the floor. More than 50% of this time involved counseling and coordination of care.
Anticipated Discharge: 24 - 48 hours
Subjective/Interval History
-
Date of Service: April 18, 2024
Seen and examined at bedside in no acute distress resting comfortably in bed. Reports having a bowel movement overnight. Tolerating clear liquid diet. Danis and daughter Nasrin present during evaluation
Objective Data
-
Labs:
Laboratory Results
04/18/24
05:04
WBC 17.1 H
Hgb 8.2 L
Hct 24.9 L
Plt Count 465 H
Sodium Pending
Potassium Pending
Chloride Pending
Carbon Dioxide Pending
BUN Pending
Creatinine Pending
Glucose Pending
Calcium Pending
Vital Signs:
Vital Signs
Temp Pulse Resp BP Pulse Ox
98.1 F 80 14 171/83 96
04/18/24 03:15 04/18/24 04:59 04/18/24 04:00 04/18/24 04:59 04/18/24 04:00
I&O
04/16/24 04/17/24 04/18/24
06:59 06:59 06:59
Intake Total 1200 / 1200 1280 / 1280 2890 / 2890
Output Total 1290 / 1590 730 / 730 140 / 140
Balance -90 / -390 550 / 550 2750 / 2750
[2024-04-18 07:22] LABS: Blood Urea Nitrogen 15 mg/dl (7-17); Calcium 8.2 mg/dl (8.4-10.2); Carbon Dioxide 24 mmol/L (22-30); Chloride 102 mmol/L (98-107); Estimated Creatinine Clearance 85 ml/min; Glucose 144 mg/dl (70-99); Magnesium 2.2 mg/dl (1.6-2.3); Phosphorus 2.7 mg/dl (2.5-4.5); Potassium 3.3 mmol/L (3.5-5.1); Sodium 133 mmol/L (135-145); eGFR > 60.00
[2024-04-18] MEDS: KCL ELIXIR 40 MEQ PO (08:42)
[2024-04-18] MEDS: THIAMINE INJECTION 100 MG IV (08:42)
[2024-04-18] MEDS: NSS (PRESERVATIVE FREE) 10 ML IV (08:43)
[2024-04-18] MEDS: PROTONIX IV 40 MG IV (08:43)
--- NOTE | 2024-04-18 10:38 | W.PN.CARDCBS ---
Addendum entered and electronically signed by Maciel Bauman MD 04/18/24 10:48:
Her blood pressures are on an upward trend in the 160s to 170s systolic although some of this may be related to her fatigue, postoperative pain I have no objection to reinstituting her outpatient antihypertensive medications by the primary service.
Original Note:
Today's Communication / Plan
-
Changed to oral AV lakesha agents for A-fib suppression
Discussions regarding anticoagulation ongoing
Usual postop care as you are
Impression / Plan
-
PCP: Dr. Julian Pro
Brand Advisor: None, initially seen by Dr. Langley
Impression:
Admitted with perforated sigmoid diverticulitis 04/09/24
s/p exploratory laparotomy, sigmoidectomy and end colostomy 04/14/24
Recent right TKA 04/06/24
Newly diagnosed Afib with RVR 04/11/24
Hyponatremia
Postoperative anemia following right TKA
Hyperlipidemia
Hypertension
Lumbar spine disease with radiculopathy
h/o right breast cancer status postlumpectomy
Echo 04/12/2024: EF 55 to 60%, mild aortic regurgitation, mild tricuspid regurgitation
Plan:
-Presented with perforated sigmoid diverticulitis. s/p ex lap with sigmoidectomy and end colostomy 04/14/24.
-Also noted to have rapid atrial fibrillation 04/11/2024 which was a new diagnosis. Spontaneously converted to SR, however continues to have paroxysms of afib on tele.
-Remains NPO at this time. Colorectal surgery following. She now has a PICC line and they are instituting parenteral nutrition.
-Continue HR control with Cardizem gtt. HRs stable both in and out of atrial fibrillation. She has not had further atrial fibrillation over the last 24 hours and we change her to p.o. medications if she is tolerating p.o.'s to Cardizem 120 mg CD
and discontinue her Cardizem drip. She is not currently interested in oral anticoagulation but thankfully she has not had atrial fibrillation over the last 48 hours
-Discussed anticoagulation w/ patient and family. They remain hesitant at this time. [id number] score is 3. Will continue to discuss as patient improves post-op.
-Patient just had a right TKA on 04/06/2024 and orthopedic surgery service has cleared patient for OAC if she is agreeable
-BP has overall been stable. Outpatient doses of HCTZ 12.5 mg daily and losartan 50 mg daily on hold while NPO.
-Continue post op care.
HPI: I had the pleasure to meet Jonas Thompson in 2122 for evaluation of new rapid atrial fibrillation. She is accompanied today by her significant other, Danis. Jonas is a 73-year-old female with a past medical history of hypertension, dyslipidemia
who reports reaction to Zocor and has declined trial of other lipid-lowering therapy, breast cancer status post lumpectomy, lumbar radiculopathy, osteoarthritis, right shoulder bone spur with chronic pain, left total knee replacement, and more
recently a right total knee replacement 04/06/[address] Zuniga. She has not previously seen cardiology. Her significant other, Danis, does have atrial fibrillation and is followed by cardiology at [place]. She presented to [facility]
with severe abdominal pain and postop constipation found to have sigmoid diverticulitis complicated by small perforation by CT and x-ray imaging. There was no abscess seen on initial CT per surgery. She also had acute urinary retention requiring
straight cath. She was made n.p.o. for bowel rest and placed on IV antibiotics. Colorectal surgery is following however there is no urgent plan for surgery. This morning around 7 AM she was noted to be in rapid atrial fibrillation which is a new
diagnosis. Fortunately, she denies tachycardia or palpitations. She denies chest pain or shortness of breath. She was started on IV Cardizem drip following an IV Cardizem bolus and is currently on an infusion of 15 mg/h with heart rates still in
the 140s�160s. Past medical/surgical history: Hypertension, untreated dyslipidemia/reaction to Zocor and has declined trial of other lipid-lowering therapy, right breast cancer status post lumpectomy, lumbar spine disease status post right L3-4,
L4-5 ILESI in 2022, left total knee replacement surgery 04/08/2023, right total knee replacement surgery 04/06/2024, right shoulder pain/bone spur.
Progress Note - Brand Advisor
Subjective
Date of Service: April 18, 2024
Total Time Spent with Patient (in minutes): Tired
Objective
Labs:
04/18/24 05:04
04/18/24 06:44
Labs
Hgb 8.2 g/dL (12.0-16.0) L 04/18/24 05:04
Hct 24.9 % (37.0-47.0) L 04/18/24 05:04
Plt Count 465 10^3/uL (130-400) H 04/18/24 05:04
PT 15.2 Sec (11.4-14.6) H 04/14/24 14:03
INR 1.19 04/14/24 14:03
APTT 31.8 Sec (23.4-35.0) 04/14/24 14:03
Sodium 133 mmol/L (135-145) L 04/18/24 06:44
Potassium 3.3 mmol/L (3.5-5.1) L 04/18/24 06:44
BUN 15 mg/dl (7-17) 04/18/24 06:44
Creatinine 0.4 mg/dL (0.6-1.0) L 04/18/24 06:44
Glucose 144 mg/dl (70-99) H 04/18/24 06:44
Vital Signs and I&O:
Vital Signs
Temp Pulse Resp BP Pulse Ox
98.0 F 80 14 165 96
04/18/24 07:34 04/18/24 06:45 04/18/24 06:45 04/18/24 06:45 04/18/24 06:45
Vital Signs
Temp Pulse Resp BP Pulse Ox
98.0 F 80 14 165 96
04/18/24 07:34 04/18/24 06:45 04/18/24 06:45 04/18/24 06:45 04/18/24 06:45
Intake & Output
04/16/24 04/17/24 04/18/24 04/19/24
06:59 06:59 06:59 06:59
Intake Total 1200 / 1200 1280 / 1280 2890 / 2890 300 / 300
Output Total 1290 / 1590 730 / 730 140 / 140
Balance -90 / -390 550 / 550 2750 / 2750 300 / 300
Physical Exam
Physical Exam
�
����Physical Exam
�
��������������������General:� no apparent distress, not acutely ill
�
��������������������������Neck:� supple. no meningeal signs. normal psoterior pharynx
������������������������
���������������������������Heart:� s1/s2 regular rate and rhythm, no murmur. equal radial pulses.
�
��������������������������Lungs:�� no acute respiratory distress. clear bilaterally
�
����������������������Abdomen:normal bowel sounds. not tender. no CVAT
�
��������������������������Neuro:� alert and oriented. no focal neurological deficits
�
������������������������������Skin:�� no rash
�
�����������������������Psychiatric:well kept. interactive and cooperative
�
����������������������Extremities:� no edema. no calf tenderness. negative homans. good distal pulses
�
�
PICC line noted in the left arm
��
�
[2024-04-18] MEDS: CARDIZEM CD 120 MG PO (10:59)
[2024-04-18] MEDS: COZAAR 50 MG PO (11:03)
--- NOTE | 2024-04-18 11:40 | PTCARENOTE ---
Cardizem gtt dc'd and PO Cardizem ordered per cardiology, Losartan resumed per primary for HTN at this time. Pt and family updated, pt working with PT, assisted x1 to ambulate in room and sit up in chair. Diet has been advanced to full liquids per
CRC. Other meds and assesment as documented, see worklist. Call maddox in reach, safe environment maintained.
[2024-04-18 12:23] LABS: Glucose - Point of Care 167 mg/dl (70-99)
--- NOTE | 2024-04-18 12:28 | W.PN.CRS1 ---
Today's Communication / Plan
-
Advance to FLD
Assessment/Plan
-
73-year-old female s/p recent R TKR presenting with abdominal pain and complicated diverticulitis. No improvement with nonoperative management.
POD #4 exlap, sigmoidectomy, end-colostomy
New onset AFib this admission: cards following
Ortho following given recent joint surgery. PT following with us.
AFVSS
+Leukocytosis, slowly trending down
H/H stable
+bm/flatus via stoma, tolerating clears
--Trend WBC's. Continue Zosyn
� Advance to FLD
-TPN via PICC: renewed today, ?last bag pending diet tolerance
- Local wound care. Ostomy nurse following with us. VNA upon discharge
� Appreciate cards; transitioned to PO diltiazem. OK for therapeutic AC as per cardiology. Cardiology notes indicate patient currently declining.
� Cont DVT PPx with Lovenox
� Continue scheduled pain control with Tylenol, Ibuprofen and Tramadol/Dilaudid as needed
- OOB/IS, encourage ambulation; appreciate PT
� Appreciate hospitalist
Subjective Data
Procedure
04/14/24 - Ex lap, sigmoidectomy, end colostomy
Subjective Data
Date of Service: April 18, 2024
Patient seen and examined at bedside with Dr. Perez. Family present, questions answered. Patient denies n/v. Tolerating liquids. Pain improving day by day.
Objective Data
-
Vital Signs
Temp Pulse Resp BP Pulse Ox
98.0 F 77 16 167/86 95
04/18/24 07:34 04/18/24 12:00 04/18/24 12:00 04/18/24 12:00 04/18/24 12:00
Intake & Output
04/17/24 04/18/24 04/19/24
06:59 06:59 06:59
Intake Total 1280 / 1280 2890 / 2890 350 / 350
Output Total 730 / 730 140 / 140 800 / 800
Balance 550 / 550 2750 / 2750 -450 / -450
Intake:
Oral fluids 1320 / 1320 300 / 300
IV fluids (Total) 720 / 720 300 / 300
IV piggybacks 100 / 100 100 / 100 50 / 50
TPN/PPN 460 / 460 1170 / 1170
Output:
Liquid stool amount 100 / 100
Colostomy 100 / 100
Drain Output (Total) 80 / 80 40 / 40
Right Abdomen Jeramie-Govea 80 / 80 40 / 40
Urine, Mas 300 / 300
Urine, Voided 350 / 350 800 / 800
Other:
Number of approximated MODERATE 1
amounts of urine
Number of approximated LARGE 1
amounts of urine
How many times incontinent 1
SMALL amount urine
How many times incontinent 1
MODERATE amount urine
Lab Results
04/18/24 05:04
04/18/24 06:44
Physical Exam
-
General: No Acute Distress and AOx3
Abdomen: Soft, Non Distended, Tender (around midline incision) and Other (stoma warm and pink, flatus in appliance with liquid stool present)
Skin: Warm and Dry
Wound: Other (staple spaced apart/sofy in place with dried blood, well approximated. Michael with serous fluid)
--- NOTE | 2024-04-18 14:11 | CM ---
CM consulted for VN. CM spoke with patient and confirmed choice. Patient is agreeable to [facility] as she has had a history with this agency.
CM sent referral via [facility] to [facility].
--- NOTE | 2024-04-18 14:27 | PTCARENOTE ---
PRN Hydralazine given for continued HTN at this time. (172/81) Pt resting back in bed. at bedside.
--- NOTE | 2024-04-18 18:37 | PTCARENOTE ---
Pt with one minor 'panic attack' this afternoon, sl tearful, stating 'I just want to go home', wanting to sit on side of bed, emotional support provided, assisted to sit up, now resting quietly, expressing appreciation for care. Pt's KHALIL drain with
approx 8 ml serosang output.
[2024-04-18 18:46] LABS: Glucose - Point of Care 134 mg/dl (70-99)
[2024-04-18] MEDS: Parenteral Nutrition, Central 1420 IV (21:00)
[2024-04-18] MEDS: MELATONIN 5 MG PO (23:31)
--- NOTE | 2024-04-18 23:35 | PTCARENOTE ---
Received pt at change of shift. Pt in NSR on monitor at change of shift but flipped into AFlutter with rate in the 110s-120s. Brigette gtt d/c on 04/18 and transitioned to PO eugeniazem. Pt states she feels very anxious but offers no other
complaints. Notified house [facility].
[2024-04-19] VITALS (15 sets, daily range): BP systolic 119–177; BP diastolic 73–132; PULSE 86
[2024-04-19 00:36] LABS: Glucose - Point of Care 157 mg/dl (70-99)
[2024-04-19] MEDS: ZOSYN 50 IV ×4 (05:36→23:06)
[2024-04-19] MEDS: MOTRIN PO ×2 (05:44→13:36)
[2024-04-19] MEDS: TYLENOL PO ×2 (05:44→18:11)
[2024-04-19 05:56] LABS: Hematocrit 22.7 % (37.0-47.0); Hemoglobin 7.6 g/dL (12.0-16.0); Mean Corp Hgb Conc. 33.5 g/dL (33.0-37.0); Mean Corpuscular Hgb 27.5 pg (27.0-31.0); Mean Corpuscular Volume 82.2 fL (81.0-99.0); Mean Platelet Volume 8.9 fL (7.4-10.4); Platelet Count 447 10^3/uL (130-400); Red Blood Cell Count 2.76 10^6/uL (4.20-5.40); Red Cell Dist. Width 14.4 % (11.5-14.5); White Blood Cell Count 16.9 10^3/uL (4.8-10.8)
[2024-04-19 06:23] LABS: Glucose - Point of Care 132 mg/dl (70-99)
[2024-04-19 06:25] LABS: ALT (SGPT) 52 U/L (0-35); AST (SGOT) 53 U/L (14-36); Albumin 2.5 g/dl (3.5-5.0); Alkaline Phosphatase 109 U/L (38-126); Blood Urea Nitrogen 15 mg/dl (7-17); Calcium 8.4 mg/dl (8.4-10.2); Carbon Dioxide 23 mmol/L (22-30); Chloride 106 mmol/L (98-107); Estimated Creatinine Clearance 85 ml/min; Glucose 126 mg/dl (70-99); Magnesium 2.3 mg/dl (1.6-2.3); Phosphorus 3.2 mg/dl (2.5-4.5); Potassium 3.9 mmol/L (3.5-5.1); Sodium 134 mmol/L (135-145); Total Bilirubin 0.7 mg/dl (0.2-1.3); Total Protein 4.7 g/dl (6.3-8.2); Triglycerides 223 mg/dl (10-149); eGFR > 60.00
[2024-04-19] MEDS: COZAAR 50 MG PO (08:48)
[2024-04-19] MEDS: CARDIZEM CD 120 MG PO (08:48)
[2024-04-19] MEDS: THIAMINE INJECTION 100 MG IV (08:48)
[2024-04-19] MEDS: NSS (PRESERVATIVE FREE) 10 ML IV (08:49)
[2024-04-19] MEDS: PROTONIX IV 40 MG IV (08:49)
--- NOTE | 2024-04-19 09:07 | W.PN.CRS1 ---
Today's Communication / Plan
-
advance to reg
restart subQ hep; likely ok for therapeutic AC tmrw
OOB/IS
Assessment/Plan
-
73-year-old female with PMH of HTN, sciatica, breast cancer s/p lumpectomy, anxiety and recent right R TKR on 04/06/24 who presents with 1 day of acute abdominal pain, never happened to her before; associated with constipation (BM's were small and
hard), no N/V, CP/SOB no urinary symptoms; WBC 26.7, CT�initially read as inflammation of the bowel mesentery, but reviewed by radiology 04/10 noting flecks of free air in the left abdomen associated with diverticulitis, no free fluid or abscess;
patient was initially admitted with concern of significant constipation, but re-read of CT confirms perforated diverticulitis; attempted non-operative mgmt as there was no peritonitis or hemodynamic instability; on HD 2, she went into afib with RVR,
but converted back to sinus with metoprolol; on HD 5, she had a bump in her WBC and flipped back into afib with RVR; a repeat CT showed a large intrabdominal abscess with worsening free air
POD 5 exlap, sigmoidectomy, end-colostomy
AFVSS
WBC 16.9 from 17.1, Hb 7.6 from 8.2, Cr 0.6, UOP 1.9L
-Perforated diverticulitis, s/p attempt at non-op mgmt, 04/14 with bump in wbc and worsening perforation on CT, s/p Corby's
-slow downtrend in wbc; continue trending with differential
-can stop zosyn
�Advance to regular
-can stop TPN
-hold all bowel regimen
� Appreciate cards; continue dilt gtt for afib
� Restart DVT ppx with subQ hep; if no drop in Hb tmrw, ok for therapeutic AC tmrw
� Continue pain control with Tylenol, Toradol and Tramadol PRN
- OOB/IS, encourge ambulation; appreciate PT
� Appreciate hospitalist
Dispo- hopefully ready for d/c in 2 days
Subjective Data
Procedure
04/14/24 - Ex lap, sigmoidectomy, end colostomy
Subjective Data
Date of Service: April 19, 2024
No overnight events. Has intermittent cough, not getting worse.
Pain controlled.
Denies nausea/vomiting. Tolerating fulls diet.
+ostomy function (liquid to soft stool) +voiding
Pt is OOB.
Objective Data
-
Vital Signs
Temp Pulse Resp BP Pulse Ox
97.7 F 82 16 150/73 96
04/19/24 03:21 04/19/24 04:00 04/19/24 04:00 04/19/24 04:00 04/19/24 04:00
Intake & Output
04/18/24 04/19/24 04/20/24
06:59 06:59 06:59
Intake Total 2890 / 2890 590 / 590
Output Total 140 / 140 1957 / 195
Balance 2750 / 2750 -1368 / -1368
Intake:
Oral fluids 1320 / 1320 540 / 540
IV fluids (Total) 300 / 300
IV piggybacks 100 / 100 50 / 50
TPN/PPN 1170 / 1170
Output:
Liquid stool amount 100 / 100 50 / 50
Colostomy 100 / 100 50 / 50
Drain Output (Total)
Right Abdomen Jeramie-Govea
Urine, Voided 1899
Other:
Number of approximated MODERATE 1
amounts of urine
Number of approximated LARGE 1
amounts of urine
How many times incontinent 1
SMALL amount urine
How many times incontinent 1
MODERATE amount urine
Lab Results
04/19/24 05:40
04/19/24 05:40
Physical Exam
-
General: No Acute Distress and AOx3
HEENT: Grossly Normal
Abdomen: Soft, Distended (minimally distended), Tender (appropriately tender near midline), No Guarding, No Rebound and Other (Ostomy pink, productive, 1 to 2 cm bud)
Skin: Warm and Dry
Wound: No Signs of Infection, No Skin Erythema and Other (telfa sofy removed)
--- NOTE | 2024-04-19 10:25 | W.PN.CARDCBS ---
Today's Communication / Plan
-
Currently in sinus rhythm
Rate control of AFib with PO diltiazem
Patient prefers to hold off on AC for now, discussions on going
Monitor on tele while here
Impression / Plan
-
PCP: Dr. Julian Pro
Program Supervisor: None, initially seen by Dr. Langley
Impression:
Admitted with perforated sigmoid diverticulitis 04/09/24
s/p exploratory laparotomy, sigmoidectomy and end colostomy 04/14/24
Recent right TKA 04/06/24
Newly diagnosed Afib with RVR 04/11/24
Hyponatremia
Postoperative anemia following right TKA
Hyperlipidemia
Hypertension
Lumbar spine disease with radiculopathy
h/o right breast cancer status postlumpectomy
Echo 04/12/2024: EF 55 to 60%, mild aortic regurgitation, mild tricuspid regurgitation
Plan:
-Presented with perforated sigmoid diverticulitis s/p ex lap with sigmoidectomy and end colostomy 04/14/24
-Also noted to have rapid atrial fibrillation 04/11/2024 which was a new diagnosis. Spontaneously converted to SR, however continues to have paroxysms of afib on tele.
-Remains NPO at this time. Colorectal surgery following. She now has a PICC line and they are instituting parenteral nutrition.
-Continue HR control with PO Cardizem
-She is not currently interested in oral anticoagulation but
-Discussed anticoagulation w/ patient and family. They remain hesitant at this time. [id number] score is 3. Will continue to discuss as patient improves post-op. We discussed re-evaluating this in the office as well, follow up with Dr. Langley
is scheduled on 05/18
-BP has overall been stable. Outpatient doses of HCTZ 12.5 mg daily and losartan 50 mg daily on hold while NPO.
HPI: I had the pleasure to meet Jonas Thompson in 2122 for evaluation of new rapid atrial fibrillation. She is accompanied today by her significant other, Gene. Mcdaniel is a 73-year-old female with a past medical history of hypertension, dyslipidemia
who reports reaction to Zocor and has declined trial of other lipid-lowering therapy, breast cancer status post lumpectomy, lumbar radiculopathy, osteoarthritis, right shoulder bone spur with chronic pain, left total knee replacement, and more
recently a right total knee replacement 04/06/[address] Zuniga. She has not previously seen cardiology. Her significant other, Danis, does have atrial fibrillation and is followed by cardiology at [place]. She presented to [facility]
with severe abdominal pain and postop constipation found to have sigmoid diverticulitis complicated by small perforation by CT and x-ray imaging. There was no abscess seen on initial CT per surgery. She also had acute urinary retention requiring
straight cath. She was made n.p.o. for bowel rest and placed on IV antibiotics. Colorectal surgery is following however there is no urgent plan for surgery. This morning around 7 AM she was noted to be in rapid atrial fibrillation which is a new
diagnosis. Fortunately, she denies tachycardia or palpitations. She denies chest pain or shortness of breath. She was started on IV Cardizem drip following an IV Cardizem bolus and is currently on an infusion of 15 mg/h with heart rates still in
the 140s�160s. Past medical/surgical history: Hypertension, untreated dyslipidemia/reaction to Zocor and has declined trial of other lipid-lowering therapy, right breast cancer status post lumpectomy, lumbar spine disease status post right L3-4,
L4-5 ILESI in 2022, left total knee replacement surgery 04/08/2023, right total knee replacement surgery 04/06/2024, right shoulder pain/bone spur.
Progress Note - Program Supervisor
Subjective
Date of Service: April 19, 2024
NAOE. Resting comfortably OOB to chair. No cardiac complaints.
Objective
Labs:
04/19/24 05:40
04/19/24 05:40
Labs
Hgb 7.6 g/dL (12.0-16.0) L 04/19/24 05:40
Hct 22.7 % (37.0-47.0) L 04/19/24 05:40
Plt Count 447 10^3/uL (130-400) H 04/19/24 05:40
PT 15.2 Sec (11.4-14.6) H 04/14/24 14:03
INR 1.19 04/14/24 14:03
APTT 31.8 Sec (23.4-35.0) 04/14/24 14:03
Sodium 134 mmol/L (135-145) L 04/19/24 05:40
Potassium 3.9 mmol/L (3.5-5.1) 04/19/24 05:40
BUN 15 mg/dl (7-17) 04/19/24 05:40
Creatinine 0.4 mg/dL (0.6-1.0) L 04/19/24 05:40
Glucose 126 mg/dl (70-99) H 04/19/24 05:40
Vital Signs and I&O:
Vital Signs
Temp Pulse Resp BP Pulse Ox
97.7 F 82 16 150/73 96
04/19/24 03:21 04/19/24 04:00 04/19/24 04:00 04/19/24 04:00 04/19/24 04:00
Vital Signs
Temp Pulse Resp BP Pulse Ox
97.7 F 82 16 150/73 96
04/19/24 03:21 04/19/24 04:00 04/19/24 04:00 04/19/24 04:00 04/19/24 04:00
Intake & Output
04/17/24 04/18/24 04/19/24 04/20/24
06:59 06:59 06:59 06:59
Intake Total 1280 / 1280 2890 / 2890 590 / 590
Output Total 730 / 730 140 / 140 1958 / 1957
Balance 550 / 550 2750 / 2750 -1368 / -1368
Physical Exam
Physical Exam
Gen: NAD, AAOx3
HEENT: NC/AT, sclera anicteric
Neck: No JVD
CV: RRR, NL s1/s2
Lungs: CTAB
Ext: No LE edema
Skin: Warm, dry
Neuro: Non-focal
--- NOTE | 2024-04-19 12:26 | CM ---
CM reviewed chart and ADC 1-2 days
Pt POD#5 with new ostomy- TPN discontinued and diet advancement
Therapy continues to follow with VN recommendations
Bedside meeting with pt to review dc planning
Pt overwhelmed with new ostomy and noted poor sleep
CM suggested meeting with ostomy nurse to reinforce teaching and care
Pt requested spouse present during teaching
Outreach to WOC/Lynda
Plan for bedside teaching with pt and spouse this afternoon
Pt previously referred to [facility] and accepted for service
Discharge Disposition- home with [facility] VN and new ostomy
Fax- [phone]
--- NOTE | 2024-04-19 12:54 | W.PN.HOSP.TC ---
Today's Communication/Plan
-
diet advanced
po CCB
plan to stop TPN
stop high dose NSAIDs
Assessment / Plan
Assessment / Plan
General: no acute distress appears comfortable at this time
HEENT: NormoCephalic, Anicteric
Respiratory: Clear; No Wheezes, Rales or Rhonchi
Cardiac: S1/S2 and regularly regular
GI:+ostomy
Musculoskeletal: No Clubbing, No Cyanosis and Edema, Right Lower Extremity (Right knee with Aquacel dressing in place, surrounding healing ecchymosis with surrounding warmth of anterior thigh/medial thigh)
Neuro: AO x 3, No Motor Deficits, Nonfocal/grossly intact
Psych: Calm
Sepsis likely 2/2 suspected perforated sigmoid diverticulitis
-Was constipated prior to arrival. Patient is status post right knee replacement surgery
-Initial imaging was consistent with perforated sigmoid diverticulitis, repeat imaging 04/14 with worsening perforation on CT. Status post ex lap, sigmoidectomy, end colostomy. Continue with antibiotics. Monitor ostomy function
Colorectal surgery following; started on TPN, tolerated liquid diet and now advacned to LR. Plan to stop TPN tonight.
cont zosyn minimum 4 days post-op as per surgery, consider extended course given persistent leukocytosis
New onset of atrial fibrillation with rapid ventricular response
back in afib with RVR 04/14; now back in NSR
Continue with diltiazem drip for now, cardiology following
-Discussed with orthopedic-okay to start patient on full dose of anticoagulation from orthopedic perspective with recent knee surgery. Discussed with Dr. Zuniga on 04/11/2024. Currently anticoagulation is on hold given recent surgery
IV pushes metoprolol prn
CHADVASC 3, will need anticoagulation eventually. When cleared from colorectal surgery standpoint. Pt hesistant about DOAC.
-Echo noted
-Cardiology eval appreciated patient defers therapeutic anticoagulation at this time, cardizem gtt transitioned to PO
Hypokalemia
-monitor and replete as necessary.
#Hyponatremia poss siadh/ pain / polydipsia
improving 130s
#s/p Right knee replacement 04/07/2024
-Orthopedic not concern for infection.
-Continue with postop management.
Dr. Efrain gonzales 04/16 appreciated
#Hypertensive urgency uncontrolled secondary to abdominal pain
now on diltiazem; IV hydralazine prn, metoprolol as needed
home losartan resumed, home HCTz remains on hold
Hypocalcemia
monitor and replete as necessary
Mild LFT elevation
resolved
# Anemia likely secondary to postop; also has some dilutional component
Trend for now. Transfuse <7 hgb.
#HLD
no meds
#Anxiety
no current meds
Other PMH:
Chronic cervical radicular pain
Chronic sciatica
Breast cancer status post right breast lumpectomy
DVT prophylaxis
SCDs, postop per colorectal
Full code
Anticipated Discharge: > 48 hours
Subjective/Interval History
-
Date of Service: April 19, 2024
intermittent abd pain
Objective Data
-
Labs:
Laboratory Results
04/19/24
05:40
WBC 16.9 H
Hgb 7.6 L
Hct 22.7 L
Plt Count 447 H
Sodium 134 L
Potassium 3.9
Chloride 106
Carbon Dioxide 23
BUN 15
Creatinine 0.4 L
Glucose 126 H
Calcium 8.4
Total Bilirubin 0.7
AST 53 H
ALT 52 H
Alkaline Phosphatase 109
Vital Signs:
Vital Signs
Temp Pulse Resp BP Pulse Ox
97.7 F 82 17 173/92 98
04/19/24 03:21 04/19/24 12:00 04/19/24 12:00 04/19/24 10:00 04/19/24 12:40
I&O
04/18/24 04/19/24 04/20/24
06:59 06:59 06:59
Intake Total 2890 / 2890 590 / 590
Output Total 140 / 140 1958 / 1957
Balance 2750 / 2750 -1368 / -1368
Data Reviewed
-
Total Time Spent with Patient (in minutes): 55
[2024-04-19] MEDS: TYLENOL 1000 MG PO ×2 (14:02→23:06)
--- NOTE | 2024-04-19 15:56 | WOUNDNOTE ---
WON RN NOTE: Patient ambulated back to bed with nurse Trista, sacrum is intact. Stoma pink and budded for small amt of stool. Peristomal skin intact. Appliance changed with assist from patient and Gene. Reviewed skin care, emptying, burping
pouch, ADL's with a pouch, ordering supplies and shown Colostomy pamphlet. Answered all questions, support and encouragement given. Additional supplies ordered, asked nurse to bring to . Patient and aware can take supplies upon discharge,
then VN will follow at home. Will follow for next pouch change Friday if here.
[2024-04-19] MEDS: HEPARIN SC (18:10)
[2024-04-19 18:14] LABS: Glucose - Point of Care 133 mg/dl (70-99)
[2024-04-19] MEDS: APRESOLINE 10 MG IV (18:49)
[2024-04-19] MEDS: DILAUDID 1 MG IV (19:27)
--- NOTE | 2024-04-19 20:23 | PTCARENOTE ---
Report given to 2S RN. Pt will be transported via wheelchair with all her belongings. @ bedside.
--- NOTE | 2024-04-19 21:00 | PTCARENOTE ---
Pt transferred from IMU at 20:45 on 04/19. A0x3 pt at bedside.
[2024-04-19] MEDS: MELATONIN 5 MG PO (22:45)
[2024-04-19] MEDS: HEPARIN 5000 UNITS SC (23:05)
[2024-04-20] VITALS (7 sets, daily range): BP systolic 145–190; BP diastolic 70–91; BMI 29.1
[2024-04-20 05:09] LABS: % Basophils 0.4 % (0-2); % Immature Granulocytes 2.8 % (0-0.5); % Lymphocytes 8.1 % (20.5-51.1); % Monocytes 5.4 % (1.7-9.3); % Neutrophils 81.3 % (42.2-75.2); Absolute Basophils 0.1 10^3/uL (0-0.2); Absolute Eosinophils 0.3 10^3/uL (0-0.7); Absolute Immature Granulocytes 0.5 10^3/uL (0-0.05); Absolute Lymphocytes 1.3 10^3/uL (1.2-3.4); Absolute Monocytes 0.9 10^3/uL (0.1-0.6); Absolute Neutrophils 13.1 10^3/uL (1.4-6.5); Hematocrit 23.1 % (37.0-47.0); Hemoglobin 7.7 g/dL (12.0-16.0); Mean Corp Hgb Conc. 33.3 g/dL (33.0-37.0); Mean Corpuscular Hgb 26.7 pg (27.0-31.0); Mean Corpuscular Volume 80.2 fL (81.0-99.0); Mean Platelet Volume 8.8 fL (7.4-10.4); Nucleated Red Blood Cells % 0 %; Platelet Count 513 10^3/uL (130-400); Red Blood Cell Count 2.88 10^6/uL (4.20-5.40); Red Cell Dist. Width 14.7 % (11.5-14.5); White Blood Cell Count 16.2 10^3/uL (4.8-10.8)
[2024-04-20] MEDS: TYLENOL 1000 MG PO ×4 (05:42→23:43)
[2024-04-20] MEDS: ZOSYN 50 IV (05:42)
--- NOTE | 2024-04-20 07:55 | W.PN.CRS1 ---
Today's Communication / Plan
-
Cont reg
Cont OOB/IS
OK for AC
Trend WBC off abx
Assessment/Plan
-
73-year-old female with PMH of HTN, sciatica, breast cancer s/p lumpectomy, anxiety and recent right R TKR on 04/06/24 who presents with 1 day of acute abdominal pain, never happened to her before; associated with constipation (BM's were small and
hard), no N/V, CP/SOB no urinary symptoms; WBC 26.7, CT�initially read as inflammation of the bowel mesentery, but reviewed by radiology 04/10 noting flecks of free air in the left abdomen associated with diverticulitis, no free fluid or abscess;
patient was initially admitted with concern of significant constipation, but re-read of CT confirms perforated diverticulitis; attempted non-operative mgmt as there was no peritonitis or hemodynamic instability; on HD 2, she went into afib with RVR,
but converted back to sinus with metoprolol; on HD 5, she had a bump in her WBC and flipped back into afib with RVR; a repeat CT showed a large intrabdominal abscess with worsening free air
POD 6 exlap, sigmoidectomy, end-colostomy
AFVSS
WBC 16.2 from 16.9 , Hb 7.7 from 7.6
-Perforated diverticulitis, s/p attempt at non-op mgmt, 04/14 with bump in wbc and worsening perforation on CT, s/p Corby's
-slow downtrend in wbc; continue trending with differential
-monitor off abx
�Advance to regular
-off TPN
-hold all bowel regimen
� Appreciate cards; continue dilt gtt for afib
� Cont subQ hep; ok for therapeutic AC from surgical standpoint
� Continue pain control with Tylenol, Toradol and Tramadol PRN
- OOB/IS, encourge ambulation; appreciate PT
� Appreciate hospitalist
Dispo- hopefully ready for d/c in 1-2 days
Subjective Data
Procedure
04/14/24 - Ex lap, sigmoidectomy, end colostomy
Subjective Data
Date of Service: April 20, 2024
No overnight events. Not much energy or appetite, but tolerating regular without N/V.
Pain controlled.
+Ostomy function +voiding
Pt is OOB
Objective Data
-
Vital Signs
Temp Pulse Resp BP Pulse Ox
97.7 F 76 18 166/81 96
04/20/24 04:03 04/20/24 07:10 04/20/24 07:10 04/20/24 07:10 04/20/24 07:10
Intake & Output
04/19/24 04/20/24 04/21/24
06:59 06:59 06:59
Intake Total 590 / 590 340 / 340
Output Total 1957 / 1957 770 / 770
Balance -1368 / -1368 -430 / -430
Intake:
Oral fluids 540 / 540 240 / 240
IV piggybacks 50 / 50 100 / 100
Output:
Liquid stool amount 50 / 50 150 / 150
Colostomy 50 / 50 150 / 150
Drain Output (Total)
Right Abdomen Jeramie-Govea
Urine, Voided 1900 / 1900 600 / 600
Other:
Number of approximated MODERATE 1
amounts of urine
Lab Results
04/20/24 04:55
04/19/24 05:40
Physical Exam
-
General: No Acute Distress and AOx3
HEENT: Grossly Normal
Abdomen: Soft, Distended (minimally distended), Tender (appropriately tender), No Guarding and No Rebound
Skin: Warm and Dry
Wound: No Signs of Infection, No Skin Erythema and Other (midline intermittently closed with chrissy; KAHLIL with serous output)
[2024-04-20] MEDS: NSS (PRESERVATIVE FREE) IV (08:55)
[2024-04-20] MEDS: COZAAR PO (08:55)
[2024-04-20] MEDS: PROTONIX IV IV (08:56)
[2024-04-20] MEDS: THIAMINE INJECTION IV (08:56)
[2024-04-20] MEDS: CARDIZEM CD 120 MG PO (09:24)
[2024-04-20] MEDS: PROTONIX 40 MG PO (09:24)
[2024-04-20] MEDS: HEPARIN 5000 UNITS SC ×3 (09:24→23:42)
[2024-04-20] MEDS: COZAAR 100 MG PO (09:24)
[2024-04-20] MEDS: MYLICON 80 MG PO ×2 (09:53→18:39)
--- NOTE | 2024-04-20 10:47 | W.PN.HOSP.TC ---
Today's Communication/Plan
-
trend lfts
stop abx
oob
monitor HR
dc picc
Assessment / Plan
Assessment / Plan
General: no acute distress appears comfortable at this time
HEENT: NormoCephalic, Anicteric
Respiratory: Clear; No Wheezes, Rales or Rhonchi
Cardiac: S1/S2 and regularly regular
GI:+ostomy
Musculoskeletal: No Clubbing, No Cyanosis and Edema, Right Lower Extremity aquacell dressing noted with mild bruising RLE from SCDs
Neuro: AO x 3, No Motor Deficits, Nonfocal/grossly intact
Psych: Calm
Sepsis likely 2/2 suspected perforated sigmoid diverticulitis
-Was constipated prior to arrival. Patient is status post right knee replacement surgery
-Initial imaging was consistent with perforated sigmoid diverticulitis, repeat imaging 04/14 with worsening perforation on CT. Status post ex lap, sigmoidectomy, end colostomy. Continue with antibiotics. Monitor ostomy function
Colorectal surgery following; started on TPN, tolerated liquid diet and now advacned to LR. TPN stopped on 04/19. DC PICC line.
Stop further zosyn as started on 04/10. Trend wbc. afebrile.
New onset of atrial fibrillation with rapid ventricular response
back in afib with RVR 04/14; now back in NSR
Continue with diltiazem drip for now, cardiology following
-Discussed with orthopedic-okay to start patient on full dose of anticoagulation from orthopedic perspective with recent knee surgery. Discussed with Dr. Zuniga on 04/11/2024. Currently anticoagulation is on hold given recent surgery
CHADVASC 3, will need anticoagulation eventually. When cleared from colorectal surgery standpoint. Pt hesitant about DOAC.
-Echo noted
-Cardiology eval appreciated patient defers therapeutic anticoagulation at this time, cardizem gtt transitioned to PO
Hypokalemia
-monitor and replete as necessary.
#Hyponatremia poss siadh/ pain / polydipsia
improving 130s
#s/p Right knee replacement 04/07/2024
-Orthopedic not concern for infection.
-Continue with postop management.
Dr. Efrain gonzales 04/16 appreciated
#Hypertensive urgency uncontrolled secondary to abdominal pain
now on diltiazem; IV hydralazine prn, metoprolol as needed
home losartan resumed and dose increased to 100mg, home HCTz remains on hold as with hyponatremia
Hypocalcemia
monitor and replete as necessary
Mild LFT elevation
likely 2/2 multifactorial due to sepsis/TPN/Zosyn
TPN and zosyn both stopped
# Anemia likely secondary to postop; also has some dilutional component
Trend for now. Transfuse <7 hgb.
#HLD
no meds
#Anxiety
no current meds
Other PMH:
Chronic cervical radicular pain
Chronic sciatica
Breast cancer status post right breast lumpectomy
DVT prophylaxis
SCDs/hep sc
Full code
d/w wtih spouse at bedside
Anticipated Discharge: 24 - 48 hours
Subjective/Interval History
-
Date of Service: April 20, 2024
states feeling tired
tolerating diet
Objective Data
-
Labs:
Laboratory Results
04/20/24
04:55
WBC 16.2 H
Hgb 7.7 L
Hct 23.1 L
Plt Count 513 H
Vital Signs:
Vital Signs
Temp Pulse Resp BP Pulse Ox
97.7 F 76 18 166/81 96
04/20/24 04:03 04/20/24 07:10 04/20/24 07:10 04/20/24 07:10 04/20/24 07:10
I&O
04/19/24 04/20/24 04/21/24
06:59 06:59 06:59
Intake Total 590 / 590 340 / 340
Output Total 1957 770 / 770
Balance -1368 / -1368 -430 / -430
Data Reviewed
-
Total Time Spent with Patient (in minutes): 55
[2024-04-20] MEDS: APRESOLINE 10 MG IV (11:23)
[2024-04-20] MEDS: ULTRAM 50 MG PO (11:26)
--- NOTE | 2024-04-20 12:57 | W.PN.UPDATE ---
Update Note
Progress Note Update
73F s/p R TKA 04/06/2024
-dressing removed; incision clean, dry; no drainage or surrounding erythema, incision well-approximated.
-chrissy were removed without complication; the incisional area was cleaned, then steri-strips and mastisol applied and a new aquacell dressing placed
-continue with PT for the right knee.
--- NOTE | 2024-04-20 13:25 | W.PN.CARDCBS ---
Addendum entered and electronically signed by Tita Rivera MD 04/20/24 15:43:
I saw and examined the patient.
The Equity Sales Assistant's note was reviewed and I agree with the note.
Comment: No specific complaints from cardiac standpoint. Still continues to be against full AC as recommended for stroke prevention and prefers to follow up with Dr. Lisa Langley and discuss with her as outpatient.
Tele with pAF last night around 10pm.
Vital signs and labs reviewed. On exam patient is in NAD, eating bfast RR, normal S1 and S2, CTAB, Abd obese, soft, Nt, ND +BS, warm ext,
Reccs:
1. Agree with increasing Cardizem to 180mg daily.
2. Still continues to be against full AC as recommended for stroke prevention and prefers to follow up with Dr. Lisa Langley and discuss with her as outpatient. We will help arrange outpatient follow up.
3. We will sign off from cardiology standpoint. Please call us with any new questions or concerns.
Tita Rivera MD, [facility], [facility]
Original Note:
Today's Communication / Plan
-
Increase Cardizem CD 180 mg daily
Impression / Plan
-
PCP: Dr. Julian Pro
Equipment Engineer: None, initially seen by Dr. Langley
Impression:
Admitted with perforated sigmoid diverticulitis 04/09/24
s/p exploratory laparotomy, sigmoidectomy and end colostomy 04/14/24
Recent right TKA 04/06/24
Newly diagnosed Afib with RVR 04/11/24
Hyponatremia
Postoperative anemia following right TKA
Hyperlipidemia
Hypertension
Lumbar spine disease with radiculopathy
h/o right breast cancer status postlumpectomy
Echo 04/12/2024: EF 55 to 60%, mild aortic regurgitation, mild tricuspid regurgitation
Plan:
-Noted to have rapid atrial fibrillation 04/11/24 which was a new diagnosis. Spontaneously converted to SR, however continues to have paroxysms of Afib on tele.
-Previously reviewed pathophysiology and management of Afib with patient, and daughter in room on 04/15/24.
-Specifically discussed stroke risk, patient's daughter mentioned that patient's mother had a CVA and patient did not want this information shared. Patient feels that due to clean living including eating organically and abstaining from smoking, ETOH
and drugs that she should not have Afib and does not need OAC. [id number] score is 3. Patient is willing to discuss further with Dr. Langley only in the office.
-Increase Cardizem CD to 180 mg daily to help with sinus tachycardia and HTN. Cardizem CD is a new med this admission.
-Outpatient dose of losartan increased to 100 mg daily
-Outpatient dose of HCTZ 12.5 mg daily remains on hold.
-Hydralazine 10 mg IV q 4 hours PRN ordered, doses needed 1-3 times a day for BP control
HPI: I had the pleasure to meet Jonas Thompson in [id number] for evaluation of new rapid atrial fibrillation. She is accompanied today by her significant other, Danis. Jonas is a 73-year-old female with a past medical history of hypertension, dyslipidemia
who reports reaction to Zocor and has declined trial of other lipid-lowering therapy, breast cancer status post lumpectomy, lumbar radiculopathy, osteoarthritis, right shoulder bone spur with chronic pain, left total knee replacement, and more
recently a right total knee replacement 04/06/[address] Zuniga. She has not previously seen cardiology. Her significant other, Danis, does have atrial fibrillation and is followed by cardiology at [facility]. She presented [facility]
with severe abdominal pain and postop constipation found to have sigmoid diverticulitis complicated by small perforation by CT and x-ray imaging. There was no abscess seen on initial CT per surgery. She also had acute urinary retention requiring
straight cath. She was made n.p.o. for bowel rest and placed on IV antibiotics. Colorectal surgery is following however there is no urgent plan for surgery. This morning around 7 AM she was noted to be in rapid atrial fibrillation which is a new
diagnosis. Fortunately, she denies tachycardia or palpitations. She denies chest pain or shortness of breath. She was started on IV Cardizem drip following an IV Cardizem bolus and is currently on an infusion of 15 mg/h with heart rates still in
the 140s�160s. Past medical/surgical history: Hypertension, untreated dyslipidemia/reaction to Zocor and has declined trial of other lipid-lowering therapy, right breast cancer status post lumpectomy, lumbar spine disease status post right L3-4,
L4-5 ILESI in 2022, left total knee replacement surgery 04/08/2023, right total knee replacement surgery 04/06/2024, right shoulder pain/bone spur.
Progress Note - Equipment Engineer
Subjective
Date of Service: April 20, 2024
No palpitations
Objective
Labs:
04/20/24 04:55
04/19/24 05:40
Labs
Hgb 7.7 g/dL (12.0-16.0) L 04/20/24 04:55
Hct 23.1 % (37.0-47.0) L 04/20/24 04:55
Plt Count 513 10^3/uL (130-400) H 04/20/24 04:55
PT 15.2 Sec (11.4-14.6) H 04/14/24 14:03
INR 1.19 04/14/24 14:03
APTT 31.8 Sec (23.4-35.0) 04/14/24 14:03
Sodium 134 mmol/L (135-145) L 04/19/24 05:40
Potassium 3.9 mmol/L (3.5-5.1) 04/19/24 05:40
BUN 15 mg/dl (7-17) 04/19/24 05:40
Creatinine 0.4 mg/dL (0.6-1.0) L 04/19/24 05:40
Glucose 126 mg/dl (70-99) H 04/19/24 05:40
Vital Signs and I&O:
Vital Signs
Temp Pulse Resp BP Pulse Ox
97.9 F 81 18 169/86 96
04/20/24 11:10 04/20/24 11:10 04/20/24 11:10 04/20/24 11:23 04/20/24 11:10
Vital Signs
Temp Pulse Resp BP Pulse Ox
97.9 F 81 18 169/86 96
04/20/24 11:10 04/20/24 11:10 04/20/24 11:10 04/20/24 11:23 04/20/24 11:10
Intake & Output
04/18/24 04/19/24 04/20/24 04/21/24
06:59 06:59 06:59 06:59
Intake Total 2890 / 2890 590 / 590 340 / 340
Output Total 140 / 140 1957 / 1957 770 / 770
Balance 2750 / 2750 -1368 / -1368 -430 / -430
Physical Exam
Physical Exam
GEN: AAO x3
HEENT: mmm
LUNGS: No audible wheeze
CV: Sinus tach on tele
EXT: No edema B/L
NEURO: Gross non-focal
SKIN: No rash
[2024-04-20] MEDS: ATIVAN 0.5 MG PO (16:11)
[2024-04-20] MEDS: LOPRESSOR 5 MG IV (16:24)
[2024-04-20] MEDS: NON-FORMULARY ITEM 1 SPRAY NASAL (19:48)
[2024-04-21] VITALS (10 sets, daily range): BP systolic 130–175; BP diastolic 65–85; PULSE 86; O2SAT 97
[2024-04-21] MEDS: APRESOLINE 10 MG IV ×2 (04:03→22:24)
[2024-04-21 05:30] LABS: % Basophils 0.3 % (0-2); % Eosinophils 1.5 % (0-6); % Immature Granulocytes 2.1 % (0-0.5); % Lymphocytes 8.3 % (20.5-51.1); % Monocytes 5.6 % (1.7-9.3); % Neutrophils 82.2 % (42.2-75.2); Absolute Basophils 0.1 10^3/uL (0-0.2); Absolute Eosinophils 0.2 10^3/uL (0-0.7); Absolute Immature Granulocytes 0.3 10^3/uL (0-0.05); Absolute Lymphocytes 1.3 10^3/uL (1.2-3.4); Absolute Monocytes 0.9 10^3/uL (0.1-0.6); Absolute Neutrophils 12.4 10^3/uL (1.4-6.5); Hematocrit 26.1 % (37.0-47.0); Hemoglobin 8.9 g/dL (12.0-16.0); Mean Corp Hgb Conc. 34.1 g/dL (33.0-37.0); Mean Corpuscular Hgb 27.6 pg (27.0-31.0); Mean Corpuscular Volume 81.1 fL (81.0-99.0); Mean Platelet Volume 9.3 fL (7.4-10.4); Nucleated Red Blood Cells % 0 %; Platelet Count 621 10^3/uL (130-400); Red Blood Cell Count 3.22 10^6/uL (4.20-5.40); Red Cell Dist. Width 14.6 % (11.5-14.5); White Blood Cell Count 15.1 10^3/uL (4.8-10.8)
[2024-04-21] MEDS: TYLENOL PO ×2 (05:32→06:44)
[2024-04-21] MEDS: ATIVAN 0.5 MG PO ×2 (06:14→23:19)
--- NOTE | 2024-04-21 06:15 | PTCARENOTE ---
Patient refused to allow this RN take re-check BP, empty colostomy or administer 0600 Tylenol dose; patient extremely anxious and angry stating she 'cannot get any rest around here and giving her the BP medicine made her anxious and angry'; time
spent reassuring and educating in detail as to why myself, PCT and Pressurizer entered room; patient received relief from her anxiety yesterday with one time order of Ativan 0.5 mg PO, reached out to [employer] and received electronic order for
Ativan 0.5 mg PO STAT, administered at 06:14, asked patient to ring call maddox if agreeable to receive refused care prior to end of this shift; will give detailed report to dayshift RN.
[2024-04-21] MEDS: TYLENOL 1000 MG PO (07:18)
[2024-04-21] MEDS: PROTONIX 40 MG PO (07:41)
[2024-04-21] MEDS: CARDIZEM CD 180 MG PO (07:41)
[2024-04-21] MEDS: HEPARIN 5000 UNITS SC ×3 (07:41→23:25)
[2024-04-21] MEDS: COZAAR 100 MG PO (07:41)
[2024-04-21] MEDS: NON-FORMULARY ITEM 1 SPRAY NASAL ×2 (07:42→20:06)
[2024-04-21] MEDS: MYLICON 80 MG PO ×3 (10:08→18:40)
--- NOTE | 2024-04-21 10:51 | W.PN.HOSP.TC ---
Today's Communication/Plan
-
Start disposition efforts
Plan for DC tentatively tomorrow
Monitor blood pressure
Colorectal recs
Assessment / Plan
Assessment / Plan
General: no acute distress appears comfortable at this time
HEENT: NormoCephalic, Anicteric
Respiratory: Clear; No Wheezes, Rales or Rhonchi
Cardiac: S1/S2 and regularly regular
GI:+ostomy
Musculoskeletal: No Clubbing, No Cyanosis and Edema, Right Lower Extremity aquacell dressing noted with mild bruising RLE from SCDs
Neuro: AO x 3, No Motor Deficits, Nonfocal/grossly intact
Psych: Calm
Sepsis likely 2/2 suspected perforated sigmoid diverticulitis
-Was constipated prior to arrival. Patient is status post right knee replacement surgery
-Initial imaging was consistent with perforated sigmoid diverticulitis, repeat imaging 04/14 with worsening perforation on CT. Status post ex lap, sigmoidectomy, end colostomy. Continue with antibiotics. Monitor ostomy function
Colorectal surgery following; started on TPN, tolerated liquid diet and now advanced to LR. TPN stopped on 04/19. DC PICC line.
Stop further zosyn as started on 04/10. Trend wbc. Improving. afebrile.
New onset of atrial fibrillation with rapid ventricular response
back in afib with RVR 04/14; now back in NSR
Continue with diltiazem drip for now, cardiology following
-Discussed with orthopedic-okay to start patient on full dose of anticoagulation from orthopedic perspective with recent knee surgery. Discussed with Dr. Zuniga on 04/11/2024. Currently anticoagulation is on hold given recent surgery
CHADVASC 3, will need anticoagulation eventually. When cleared from colorectal surgery standpoint. Pt hesitant about DOAC. Would like to d/w as OP with cardiology
-Echo noted
-Cardiology eval appreciated patient defers therapeutic anticoagulation at this time, cardizem gtt transitioned to PO
Hypokalemia
-monitor and replete as necessary.
#Hyponatremia poss siadh/ pain / polydipsia
improving 134
#s/p Right knee replacement 04/07/2024
-Orthopedic not concern for infection.
-Continue with postop management.
Dr. Efrain gonzales 04/16 appreciated
#Hypertensive urgency uncontrolled secondary to abdominal pain
some component of severe anxiety
now on diltiazem; IV hydralazine prn, metoprolol as needed
home losartan resumed and dose increased to 100mg, home HCTz remains on hold as with hyponatremia
Cardizem dose increased. Further uptitration dose as outpatient.
Hypocalcemia
monitor and replete as necessary
Mild LFT elevation
likely 2/2 multifactorial due to sepsis/TPN/Zosyn
TPN and zosyn both stopped
Change Tylenol to as needed
# Anemia likely secondary to postop; also has some dilutional component
Trend for now. Transfuse <7 hgb.
#HLD
no meds
#Anxiety
no current meds
Other PMH:
Chronic cervical radicular pain
Chronic sciatica
Breast cancer status post right breast lumpectomy
DVT prophylaxis
SCDs/hep sc
Full code
d/w wtih spouse at bedside
Anticipated Discharge: Within 24 hours
Subjective/Interval History
-
Date of Service: April 21, 2024
Tolerating diet
no abd pain
Objective Data
-
Labs:
Laboratory Results
04/21/24
04:54
WBC 15.1 H
Hgb 8.9 L
Hct 26.1 L
Plt Count 621 H D
Vital Signs:
Vital Signs
Temp Pulse Resp BP Pulse Ox
97.6 F 95 17 153/75 96
04/21/24 07:10 04/21/24 07:41 04/21/24 07:10 04/21/24 07:41 04/21/24 07:10
I&O
04/20/24 04/21/24 04/22/24
06:59 06:59 06:59
Intake Total 340 / 340 1380 / 1380
Output Total 770 / 770 90 / 90
Balance -430 / -430 1290 / 1290
--- NOTE | 2024-04-21 11:16 | W.PN.CRS1 ---
Today's Communication / Plan
-
continue regular diet
OOB
trend wbc
Assessment/Plan
-
73-year-old female with PMH of HTN, sciatica, breast cancer s/p lumpectomy, anxiety and recent right R TKR on 04/06/24 who presents with 1 day of acute abdominal pain, never happened to her before; associated with constipation (BM's were small and
hard), no N/V, CP/SOB no urinary symptoms; WBC 26.7, CT�initially read as inflammation of the bowel mesentery, but reviewed by radiology 04/10 noting flecks of free air in the left abdomen associated with diverticulitis, no free fluid or abscess;
patient was initially admitted with concern of significant constipation, but re-read of CT confirms perforated diverticulitis; attempted non-operative mgmt as there was no peritonitis or hemodynamic instability; on HD 2, she went into afib with RVR,
but converted back to sinus with metoprolol; on HD 5, she had a bump in her WBC and flipped back into afib with RVR; a repeat CT showed a large intrabdominal abscess with worsening free air
POD 6 exlap, sigmoidectomy, end-colostomy
AFVSS
WBC 15.1 from 16.2 , Hb 8.9 from 7.7
-Perforated diverticulitis, s/p attempt at non-op mgmt, 04/14 with bump in wbc and worsening perforation on CT, s/p Corby's
-slow downtrend in wbc; continue trending with differential
-monitor off abx
�Continue regular diet
-hold all bowel regimen
� Appreciate cards; continue dilt gtt for afib
� Cont subQ hep; ok for therapeutic AC from surgical standpoint
� Continue pain control with Tylenol, Toradol and Tramadol PRN, d/c Dilaudid IV
- OOB/IS, encourage ambulation; appreciate PT
� Appreciate hospitalist
- Pathology - consistent with diverticulitis
- Dispo- hopefully ready for d/c in 1-2 days, home with VN
Subjective Data
Procedure
04/14/24 - Ex lap, sigmoidectomy, end colostomy
Subjective Data
Date of Service: April 21, 2024
Patient states she is tired. She got out of bed yesterday. She still has pain but it is controlled. She is having bowel movements in her stoma. She has flatus and burped the back on her own.
Objective Data
-
Vital Signs
Temp Pulse Resp BP Pulse Ox
98.0 F 87 17 147/75 97
04/21/24 11:14 04/21/24 11:14 04/21/24 11:14 04/21/24 11:14 04/21/24 11:14
Intake & Output
04/20/24 04/21/24 04/22/24
06:59 06:59 06:59
Intake Total 340 / 340 1380 / 1380
Output Total 770 / 770 90 / 90
Balance -430 / -430 1290 / 1290
Intake:
Oral fluids 240 / 240 1380 / 1380
IV piggybacks 100 / 100
Output:
Liquid stool amount 150 / 150 75 / 75
Colostomy 150 / 150 75 / 75
Drain Output (Total)
Right Abdomen Jeramie-Govea
Urine, Voided 600 / 600
Other:
Number of approximated MODERATE 1 1
amounts of urine
Number of approximated LARGE 1
amounts of urine
Number of unmeasured liquid
stools
Colostomy 1
Lab Results
04/21/24 04:54
04/19/24 05:40
Physical Exam
-
General: No Acute Distress and AOx3
Abdomen: Soft, Non Distended, Non Tender and Other (KAHLIL drain serous)
Wound: Dressing Changed
--- NOTE | 2024-04-21 12:59 | CM ---
CM following re: discharge planning.
Reviewed pt's chart, met with pt and pt's daughter Sanaz at bedside.
Both pt and her daughter stated that 2doctors had different opinion regarding discharge date: one Dr stated that pt might be discharged today and another Dr stated that discharge possible tomorrow.
Both pt and her daughter stated that a plan remains unchanged - return back home with [facility] and family support. Daughter Yoanna stated she will transport pt hoe at discharge and they just need clarification on discharge date. IMM reviewed,
placed on chart, pt has a copy
Please fax discharge instructions to [facility] at [phone]
D/C plan: home with [facility] and family support. Daughter to transport at [facility].
CM will follow with discharge plan updates as needed.
[2024-04-21] MEDS: NON-FORMULARY ITEM 10 MG PO (20:06)
[2024-04-22 03:55] VITALS: BP 138/82
--- NOTE | 2024-04-22 04:00 | PTCARENOTE ---
Patient received PRN dose of Hydralazine 10mg IV @22:24 for BP 175/77 (parameter spb>160), patient rang call maddox shortly after and stated that she felt extremely anxious as she did previous night after administration of Hydralazine; significant
other in room and stated they no longer want Hydralazine as an option for patient; notified Fuad Thornton @23:09 to obtain 1x order for Ativan 0.5mg PO as she received dose previous night with great relief and also asked for Hydralazine
to be removed from MAR at patient/significant other's request; Hydralazine electronically removed and Ativan 0.5mg PO administered @23:19; patient was able to sleep, and at time of this note patient resting comfortably in room, current BP 138/82.
--- NOTE | 2024-04-22 05:13 | W.PN.UPDATE ---
Update Note
Progress Note Update
pt tells RN that after hydralazine iv given she gets anxiety feeling. Ativan po x 1 given. sig other wants hydralazine dc.
[2024-04-22 07:08] VITALS: BP 143/71
[2024-04-22] MEDS: HEPARIN 5000 UNITS SC (08:26)
[2024-04-22] MEDS: NON-FORMULARY ITEM 1 SPRAY NASAL (08:29)
[2024-04-22] MEDS: CARDIZEM CD 180 MG PO (08:30)
[2024-04-22] MEDS: NON-FORMULARY ITEM 1 MG PO (08:30)
[2024-04-22] MEDS: COZAAR 100 MG PO (08:31)
[2024-04-22] MEDS: PROTONIX 40 MG PO (08:32)
[2024-04-22 09:31] LABS: % Basophils 0.4 % (0-2); % Eosinophils 0.6 % (0-6); % Immature Granulocytes 1.8 % (0-0.5); % Lymphocytes 10.3 % (20.5-51.1); % Monocytes 9.7 % (1.7-9.3); % Neutrophils 77.2 % (42.2-75.2); Absolute Eosinophils 0.1 10^3/uL (0-0.7); Absolute Immature Granulocytes 0.2 10^3/uL (0-0.05); Absolute Lymphocytes 1.1 10^3/uL (1.2-3.4); Absolute Monocytes 1.1 10^3/uL (0.1-0.6); Absolute Neutrophils 8.3 10^3/uL (1.4-6.5); Hematocrit 24.6 % (37.0-47.0); Hemoglobin 8.3 g/dL (12.0-16.0); Mean Corp Hgb Conc. 33.7 g/dL (33.0-37.0); Mean Corpuscular Hgb 27.5 pg (27.0-31.0); Mean Corpuscular Volume 81.5 fL (81.0-99.0); Mean Platelet Volume 9.2 fL (7.4-10.4); Nucleated Red Blood Cells % 0 %; Platelet Count 633 10^3/uL (130-400); Red Blood Cell Count 3.02 10^6/uL (4.20-5.40); Red Cell Dist. Width 14.8 % (11.5-14.5); White Blood Cell Count 10.8 10^3/uL (4.8-10.8)
[2024-04-22 09:52] LABS: ALT (SGPT) 184 U/L (0-35); AST (SGOT) 107 U/L (14-36); Albumin 3.1 g/dl (3.5-5.0); Alkaline Phosphatase 156 U/L (38-126); Blood Urea Nitrogen 12 mg/dl (7-17); Calcium 8.9 mg/dl (8.4-10.2); Carbon Dioxide 22 mmol/L (22-30); Chloride 104 mmol/L (98-107); Estimated Creatinine Clearance 84 ml/min; Glucose 91 mg/dl (70-99); Potassium 3.5 mmol/L (3.5-5.1); Sodium 133 mmol/L (135-145); Total Bilirubin 0.9 mg/dl (0.2-1.3); Total Protein 5.6 g/dl (6.3-8.2); eGFR > 60.00
--- NOTE | 2024-04-22 11:10 | W.PN.HOSP.TC ---
Today's Communication/Plan
-
dc home
OP f/u
Assessment / Plan
Assessment / Plan
General: no acute distress appears comfortable at this time
HEENT: NormoCephalic, Anicteric
Respiratory: Clear; No Wheezes, Rales or Rhonchi
Cardiac: S1/S2 and regularly regular
GI:+ostomy
Musculoskeletal: No Clubbing, No Cyanosis and Edema, Right Lower Extremity aquacell dressing noted with mild bruising RLE from SCDs
Neuro: AO x 3, No Motor Deficits, Nonfocal/grossly intact
Psych: Anxious
Sepsis likely 2/2 suspected perforated sigmoid diverticulitis
-Was constipated prior to arrival. Patient is status post right knee replacement surgery
-Initial imaging was consistent with perforated sigmoid diverticulitis, repeat imaging 04/14 with worsening perforation on CT. Status post ex lap, sigmoidectomy, end colostomy. Continue with antibiotics. Monitor ostomy function
Colorectal surgery following; started on TPN, tolerated liquid diet and now advanced to LR. TPN stopped on 04/19. DC PICC line.
Stop further zosyn as started on 04/10. Trend wbc. Leukocytosis resolved. Afebrile.
New onset of atrial fibrillation with rapid ventricular response
back in afib with RVR 04/14; now back in NSR
Continue with diltiazem drip for now, cardiology following
-Discussed with orthopedic-okay to start patient on full dose of anticoagulation from orthopedic perspective with recent knee surgery. Discussed with Dr. Zuniga on 04/11/2024. Currently anticoagulation is on hold given recent surgery
CHADVASC 3, will need anticoagulation eventually. Per colorectal okay for anticoagulation. Pt hesitant about DOAC did not want to start doing inpatient. Would like to d/w as OP with cardiology
-Echo noted
-Cardiology eval appreciated patient defers therapeutic anticoagulation at this time, cardizem gtt transitioned to PO
Hypokalemia
-monitor and replete as necessary.
#Hyponatremia poss siadh/ pain / polydipsia
improved
#s/p Right knee replacement 04/07/2024
-Orthopedic not concern for infection.
-Continue with postop management.
Dr. Efrain gonzales 04/16 appreciated
#Hypertensive urgency uncontrolled secondary to abdominal pain
# Suspected whitecoat hypertension
some component of severe anxiety
now on diltiazem; metoprolol as needed
home losartan resumed and dose increased to 100mg, home HCTz remains on hold as with hyponatremia
Cardizem dose increased. Further uptitration dose as outpatient.
Hypocalcemia
monitor and replete as necessary
Mild LFT elevation
likely 2/2 multifactorial due to sepsis/TPN/Zosyn
TPN and zosyn both stopped
Change Tylenol to as needed
Outpatient CMP discussed with patient and daughter at bedside both verbalized understanding.
# Anemia likely secondary to postop; also has some dilutional component
Trend for now. Transfuse <7 hgb.
#HLD
no meds hold off for starting aspirin transaminitis
#Anxiety
no current meds
Other PMH:
Chronic cervical radicular pain
Chronic sciatica
Breast cancer status post right breast lumpectomy
DVT prophylaxis
SCDs/hep sc
Full code
Discussed with colorectal okay for discharge
Discussed with patient daughter at bedside in detail
More than 30 minutes spent in discharge including
Final examination of the patient
Summarizing hospital stay
Instructions for continuing care to all relevant caregivers
Preparation of discharge records, prescriptions, and referral forms
Total time spent (in minutes): 45
Anticipated Discharge: Today
Subjective/Interval History
-
Date of Service: April 22, 2024
States of severe anxiety in the hospital
Tolerating diet
Objective Data
-
Labs:
Laboratory Results
04/22/24 04/22/24
07:49 08:54
WBC 10.8
Hgb 8.3 L
Hct 24.6 L
Plt Count 633 H
Sodium Cancelled 133 L
Potassium Cancelled 3.5
Chloride Cancelled 104
Carbon Dioxide Cancelled 22
BUN Cancelled 12
Creatinine Cancelled 0.5 L
Glucose Cancelled 91
Calcium Cancelled 8.9
Total Bilirubin 0.9
AST 107 H
ALT 184 H
Alkaline Phosphatase 156 H
Vital Signs:
Vital Signs
Temp Pulse Resp BP Pulse Ox
98.0 F 82 17 143/71 97
04/22/24 07:08 04/22/24 07:08 04/22/24 07:08 04/22/24 08:30 04/22/24 07:08
I&O
04/21/24 04/22/24 04/23/24
06:59 06:59 06:59
Intake Total 1380 / 1380 840 / 840
Output Total 90 / 90 70 / 70
Balance 1290 / 1290 770 / 770
--- NOTE | 2024-04-22 11:15 | W.DCSUMMARY ---
Discharge Summary
Discharge Data
Date of Admission: 04/09/24
Date of Discharge: 04/22/24
-
Pending Results: No
Hospital Course
73-year-old female past medical history of hypertension, suspected whitecoat hypertension, recent right knee replacement 04/07/2024, severe anxiety, chronic cervical radiculopathy, breast cancer status postlumpectomy, who is presenting from home with
severe abdominal pain and constipation. Patient initially underwent CT abdomen pelvis and subsequently was started on bowel regimen. Repeat abdominal x-ray with free air and concern for perforated sigmoid diverticulitis. Patient was started on
broad-spectrum IV antibiotics with Zosyn. Patient was highly resistant to undergoing surgery. Patient with worsening abdominal pain and underwent repeat imaging on 04/14 with worsening perforation on CAT scan and underwent emergent surgery.
Patient underwent exploratory laparotomy with sigmoidectomy and end colostomy. Postop IV antibiotics were continued. Patient was started on TPN which was eventually discontinued on 04/19. Diet was advanced and she was tolerating low residue diet.
Patient with good ostomy output. Patient was also found to be new onset of atrial fibrillation with rapid ventricular response. Cardizem drip was started. Per orthopedic patient is okay for full dose anticoagulation. Patient refused to
undergo/start patient on DOAC until outpatient repeat cardiology evaluation. Per colorectal surgery patient can be started on full dose anticoagulation however patient refused. Patient with hypokalemia which was monitored and repleted. Also with
hypertensive urgency which was combination of anxiety and whitecoat hypertension. HCTZ was discontinued due to hyponatremia. Cozaar dose was increased to 100 mg. Cardizem was also started. Recommended outpatient evaluation with primary doctor.
Patient was tolerating diet. With mild transaminitis which was seen multifactorial due to sepsis, TPN and possibly Zosyn. Recommend outpatient repeat CMP. Patient was eval by PT and OT. Patient be discharged home with VN.
Discharge Plan
-
Patient Disposition: Home with Home Care
Discharge Diagnosis/Procedures: Sepsis secondary to perforated sigmoid diverticulitis
Status post exploratory laparotomy, sigmoidectomy and end colostomy
New onset of atrial fibrillation with rapid ventricular response
Hypokalemia
Hyponatremia
Primary hypertension uncontrolled
Hypocalcemia
Mild transaminitis
Anxiety
Condition: Fair
Diet: Regular
Activity: With assistance and As tolerated
Additional Activity: No lifting over 10lbs (gallon of milk)
Driving Restrictions: No driving for 1 week
Bathing Restrictions: OK to Shower
Blood Work: Repeat CBC and CMP in 1 week with primary doctor
Other Services: VN
Wound Care: Okay to leave wounds uncovered to shower. Allow water to fall over wounds. Replace gauze daily and after a shower. Your drain wound will heal in about 5 to 7 days and will seal on it's own. Okay to leave uncovered when sealed. [place]
will be removed at your office appointment with Dr. Wright.
Activity Restrictions/Additional Instructions:
Change appliance q 3-4 days or if leakage
Clean with warm water or mild soap and water. Can shower with pouch on (or off if prefer on day of appliance change)
Dwayne wafer # [id number]
[place] pouch #[id number]
Empty during the day with 1/2 full or full of gas
Call supply company (list in folder provided) for monthly Ostomy supplies after discharge (ask VN to order supplies while on service).
Follow up with surgeon.
Call [facility] RN nurse for ostomy pouching concerns or leakage problems [phone] or [phone] or [phone].
Referrals:
Leobardo Oneill MD [Active] -
Julian Pro MD [Family Provider] - in less than 1 week
Lisa Langley DO [Active] - 05/18/24 8:40 am (You have a follow up visit with Dr. Langley at the [place] office. Please call with questions. )
Yury Wright MD [Active] - in two to three weeks
Additional Discharge Medication Instructions: Tylenol or Ibuprofen as needed for pain.
Prescriptions:
New
diltiazem HCl 180 mg Capsule,Extended Release 24hr
180 mg PO DAILY 30 Days Qty: 30 0RF
pantoprazole 40 mg Tablet,Delayed Release (Dr/Ec)
40 mg PO DAILY 30 Days Qty: 30 0RF
losartan [Cozaar] 100 mg tablet
100 mg PO DAILY Qty: 30 0RF
Continued
aspirin 81 mg Tablet,Delayed Release (Dr/Ec)
81 mg PO BID
acetaminophen 500 mg Tablet
1,000 mg PO Q6H PRN (Reason: MILD PAIN)
calcium 1,500 mg tablet
2,250 mg PO DAILY
Discontinued
losartan 50 mg tablet
50 mg PO DAILY
docusate sodium 100 mg Capsule
100 mg PO BID
bisacodyl [Dulcolax (bisacodyl)] 5 mg Tablet,Delayed Release (Dr/Ec)
5 mg PO ONCE
celecoxib 100 mg capsule
100 mg PO BID
hydrochlorothiazide 12.5 mg tablet
12.5 mg PO DAILY
Discharge Orders:
Discharge Patient (As Directed); Ordered 04/22/24
Ordered By: Gabo Talbot
Discharge Date and Time
Discharge Date/Time: 04/22/24 13:08
Print Language: BENGALI
[2024-04-22] MEDS: TUMS EX (EXTRA STRENGTH) CHEWABLE 1 TABLET PO (11:16)
--- NOTE | 2024-04-22 11:35 | W.PN.CRS1 ---
Today's Communication / Plan
-
okay for d/c
Assessment/Plan
-
73-year-old female with PMH of HTN, sciatica, breast cancer s/p lumpectomy, anxiety and recent right R TKR on 04/06/24 who presents with 1 day of acute abdominal pain, never happened to her before; associated with constipation (BM's were small and
hard), no N/V, CP/SOB no urinary symptoms; WBC 26.7, CT�initially read as inflammation of the bowel mesentery, but reviewed by radiology 04/10 noting flecks of free air in the left abdomen associated with diverticulitis, no free fluid or abscess;
patient was initially admitted with concern of significant constipation, but re-read of CT confirms perforated diverticulitis; attempted non-operative mgmt as there was no peritonitis or hemodynamic instability; on HD 2, she went into afib with RVR,
but converted back to sinus with metoprolol; on HD 5, she had a bump in her WBC and flipped back into afib with RVR; a repeat CT showed a large intrabdominal abscess with worsening free air
POD 7 exlap, sigmoidectomy, end-colostomy
AFVSS
WBC 10.8 from 15.1 , Hb 8.3 from 8.9
-Perforated diverticulitis, s/p attempt at non-op mgmt, 04/14 with bump in wbc and worsening perforation on CT, s/p Corby's
-WBC normalized
-monitor off abx
�Continue regular diet
-hold all bowel regimen
- LILLIANA drain d/ce'ed
� Appreciate cards; continue dilt gtt for afib
� Cont subQ hep; ok for therapeutic AC from surgical standpoint
� Continue pain control with Tylenol, Toradol and Tramadol PRN
- OOB/IS, encourage ambulation; appreciate PT
� Appreciate hospitalist
- Pathology - consistent with diverticulitis
- Dispo- okay for d/c home from our perspective. Wound care discussed with patient. Follow up in the office with Dr. Wright in 2 weeks.
Subjective Data
Procedure
04/14/24 - Ex lap, sigmoidectomy, end colostomy
Subjective Data
Date of Service: April 22, 2024
Patient states she feels only a small amount of RLQ itching around her drain site. Otherwise she has no pain. She denies nausea or vomiting. She has bowel function. She is tolerating a diet.
Objective Data
-
Vital Signs
Temp Pulse Resp BP Pulse Ox
98.0 F 82 17 143/71 97
04/22/24 07:08 04/22/24 07:08 04/22/24 07:08 04/22/24 08:30 04/22/24 07:08
Intake & Output
04/21/24 04/22/24 04/23/24
06:59 06:59 06:59
Intake Total 1380 / 1380 840 / 840
Output Total 90 / 90 70 / 70
Balance 1290 / 1290 770 / 770
Intake:
Oral fluids 1380 / 1380 840 / 840
Output:
Liquid stool amount 75 / 75 30 / 30
Colostomy 75 / 75 30 / 30
Drain Output (Total) 40 / 40
Right Abdomen Jeramie-Govea 40 / 40
Other:
Number of approximated MODERATE 1 2
amounts of urine
Number of approximated LARGE 1 3
amounts of urine
Number of unmeasured liquid
stools
Colostomy 1
Lab Results
04/22/24 08:54
04/22/24 08:54
Physical Exam
-
General: No Acute Distress and AOx3
Abdomen: Soft, Non Distended and Non Tender
Skin: Warm
Wound: Dressing Changed and Other (lilliana drain serous)
Incision: Clear, Dry, Intact
[2024-04-22 11:41] VITALS: BP 141/70
== END 2024-04-22 13:08 | disposition home health service (06) | DRG 853 ==
LOC: 2 SOUTH 23:53
PROVIDERS: Clinical Nurse Specialist Family Health; Internal Medicine; Physician Assistant; Registered Nurse; ADMITTING PHYSICIAN Hospitalist; ATTENDING PHYSICIAN Hospitalist; CONSULT PHYSICIAN Internal Medicine Cardiovascular Disease; CONSULT PHYSICIAN Specialist; CONSULT PHYSICIAN Surgery; EMERGENCY PHYSICIAN Emergency Medicine; FAMILY PHYSICIAN Family Medicine
PROC: 0DTN0ZZ Resection of Sigmoid Colon, Open Approach (ICD-10-PCS; 2024-04-14)
PROC: 0D1N0Z4 Bypass Sigmoid Colon to Cutaneous, Open Approach (ICD-10-PCS; 2024-04-14)
PROC: 02HV33Z Insertion of Infusion Device into Superior Vena Cava, Percutaneous Approach (ICD-10-PCS; 2024-04-16)
PROC: 3E0436Z Introduction of Nutritional Substance into Central Vein, Percutaneous Approach (ICD-10-PCS; 2024-04-16)
DX: A41.9 Sepsis, unspecified organism (principal); K65.1 Peritoneal abscess; D62 Acute posthemorrhagic anemia; E87.1 Hypo-osmolality and hyponatremia; K57.20 Diverticulitis of large intestine with perforation and abscess without bleeding; R18.8 Other ascites; I48.0 Paroxysmal atrial fibrillation; E87.6 Hypokalemia; I10 Essential (primary) hypertension; E83.51 Hypocalcemia; R74.01 Elevation of levels of liver transaminase levels; F41.9 Anxiety disorder, unspecified; E78.00 Pure hypercholesterolemia, unspecified; R33.9 Retention of urine, unspecified; K59.00 Constipation, unspecified; I16.0 Hypertensive urgency; M54.12 Radiculopathy, cervical region; M54.40 Lumbago with sciatica, unspecified side; Z96.651 Presence of right artificial knee joint; Z79.82 Long term (current) use of aspirin; Z85.3 Personal history of malignant neoplasm of breast
CPT/HCPCS: 88307; 71045; 74018; 74177; 80048; 80053; 81003; 81015; 82248; 82962; 83036; 83605; 83735; 83930; 83935; 84100; 84300; 84443; 84478; 85014; 85018; 85025; 85027; 85610; 85730; 86850; 86900; 86901; 93005; 93306; 96361; 96374; 96375; 97110; 97116; 97163; 97530; 99285; Q9967

== ENCOUNTER → 2024-09-28 06:22 | Day surgery (SDC) | payer MEDICARE, OTHER, SELFPAY | LOC: GI 06:22 | PROVIDERS: ATTENDING PHYSICIAN Surgery; FAMILY PHYSICIAN Family Medicine | DX: D12.7 Benign neoplasm of rectosigmoid junction (principal); K62.89 Other specified diseases of anus and rectum; K64.8 Other hemorrhoids | CPT/HCPCS: 45378 ==

== ENCOUNTER 2024-11-03 01:39 | Emergency (ER) | payer MEDICARE, OTHER, SELFPAY ==
[2024-11-03 01:42] VITALS: BP 216/120
[2024-11-03 02:13] LABS: % Basophils 0.5 % (0-2); % Eosinophils 0.8 % (0-6); % Immature Granulocytes 0.5 % (0-0.5); % Lymphocytes 8.5 % (20.5-51.1); % Neutrophils 80.7 % (42.2-75.2); Absolute Basophils 0.1 10^3/uL (0-0.2); Absolute Eosinophils 0.1 10^3/uL (0-0.7); Absolute Immature Granulocytes 0.1 10^3/uL (0-0.05); Absolute Lymphocytes 1.1 10^3/uL (1.2-3.4); Absolute Monocytes 1.2 10^3/uL (0.1-0.6); Absolute Neutrophils 10.3 10^3/uL (1.4-6.5); Hematocrit 41.6 % (37.0-47.0); Hemoglobin 13.7 g/dL (12.0-16.0); Mean Corp Hgb Conc. 32.9 g/dL (33.0-37.0); Mean Corpuscular Hgb 26.7 pg (27.0-31.0); Mean Corpuscular Volume 80.9 fL (81.0-99.0); Mean Platelet Volume 9.1 fL (7.4-10.4); Nucleated Red Blood Cells % 0 %; Platelet Count 354 10^3/uL (130-400); Red Blood Cell Count 5.14 10^6/uL (4.20-5.40); White Blood Cell Count 12.8 10^3/uL (4.8-10.8)
[2024-11-03 02:34] LABS: ALT (SGPT) 34 U/L (0-35); AST (SGOT) 65 U/L (14-36); Albumin 4.7 g/dl (3.5-5.0); Alkaline Phosphatase 122 U/L (38-126); Blood Urea Nitrogen 13 mg/dl (7-17); Calcium 10.6 mg/dl (8.4-10.2); Carbon Dioxide 31 mmol/L (22-30); Chloride 98 mmol/L (98-107); Glucose 126 mg/dl (70-99); Potassium 4.3 mmol/L (3.5-5.1); Sodium 137 mmol/L (135-145); Total Bilirubin 0.7 mg/dl (0.2-1.3); Total Protein 8.2 g/dl (6.3-8.2); eGFR > 60.00
--- NOTE | 2024-11-03 02:57 | ED.GENMED ---
History of Present Illness
General
Chief Complaint: Ostomy Problem
Source: patient
Exam Limitations: none
Time Seen by Provider: 11/03/24 02:46
Nursing documentation reviewed up to this point in time: agreed with
History of Present Illness
History of Present Illness:
74-year-old female presents to the emergency department with abdominal pain. Patient has been having sharp abdominal pain in the right upper quadrant. She has an ostomy and noted that it has not been filling with stool. She is concerned because
she had a previous bowel perforation. She states that while in the waiting room her pain spontaneously resolved at the ostomy started feeling again. Denies fever, chills, nausea, vomiting, chest pain, or shortness of breath.
Past History
Past History
ED Past Medical History: Cancer (Breast cancer), HTN, Hypercholesterolemia, Psychiatric (Anxiety, ) and Other (Pinched nerve in neck, Sciatica, )
ED Past Surgical History: Orthopedic (Left and right total knee replacement, Bone spur right shoulder) and Other (Right breast Lumpectomy)
Social History
Tobacco: Non-smoker
Alcohol: None
Drug: None
Personal: Single (Significant other)
Living: with family
Employment: Retired
Review of Systems
Review of Systems
Allergies reviewed?: Yes
Other source history: family
All Other Systems: ROS reviewed and negative except as documented in HPI and ROS
Constitutional: Reports no symptoms
EENT: Reports no symptoms
Respiratory: Reports no symptoms
Cardiac: Reports no symptoms
ABD/GI: Reports abdominal pain
: Reports no symptoms
Musculoskeletal: Reports no symptoms
Skin: Reports no symptoms
Neurological: Reports no symptoms
Endocrine: Reports no symptoms
Hematologic/Lymphatic: Reports no symptoms
Psychiatric: Reports anxiety
Phy Exam
General Physical Exam
General Presentation: well appearing and no apparent distress
General Skin: warm and dry
General Habitus: normal
General Mental: alert
General Hydration: appears well hydrated
ENT Exam
ENT Exam: EOMI, pharynx normal, neck supple and normocephalic
Eye Exam
Eye Exam: PERRL, cornea clear and conjunctiva normal
Cardiovascular Exam
Cardiovascular Exam: regular rate/rhythm, no edema, no murmur and normal peripheral pulses
Pulmonary Exam
Pulmonary Exam: lungs clear, no respiratory distress, no rales, no crackles, no rhonchi, no stridor, no wheezing and no cough
Gastrointestinal Exam
Gastrointestinal Exam: normal bowel sounds, non tender, soft, no organomegaly, no pulsatile mass, non distended and surgical scar
External Findings: colostomy
Palpation: generalized: Minimal tenderness
Neurological Exam
Neurological Exam: alert, oriented x3, no motor deficits and speech normal
Musculoskeletal Exam
Musculoskeletal Exam: full ROM and no edema
Skin Exam
Skin Exam: normal color, warm/dry, no rash and no petechia
Psychiatric Exam
Psychiatric Exam: normal mood/affect
Course
Orders/Labs/Results
Orders:
Orders
11/03/24 02:03
CMP [Comprehensive Metabolic Panel] Urgent
Complete Blood Count/With Diff Urgent
11/03/24 02:57
CT Abd/pelvis W Iv Cont Urgent
Comment:
Reason For Exam: ostomy, no production, pain
Abnormal Lab Results
11/03/24
02:03
WBC 12.8 H 10^3/uL
(4.8-10.8)
MCV 80.9 L fL
(81.0-99.0)
MCH 26.7 L pg
(27.0-31.0)
MCHC 32.9 L g/dL
(33.0-37.0)
RDW 15.0 H %
(11.5-14.5)
Abs Immat Gran (auto) 0.1 H 10^3/uL
(0-0.05)
Absolute Neuts (auto) 10.3 H 10^3/uL
(1.4-6.5)
Absolute Lymphs (auto) 1.1 L 10^3/uL
(1.2-3.4)
Absolute Monos (auto) 1.2 H 10^3/uL
(0.1-0.6)
Neutrophils % 80.7 H %
(42.2-75.2)
Lymphocytes % 8.5 L %
(20.5-51.1)
Carbon Dioxide 31 H mmol/L
(22-30)
Glucose 126 H mg/dl
(70-99)
Calcium 10.6 H mg/dl
(8.4-10.2)
AST 65 H U/L
(14-36)
11/03/24 02:03
11/03/24 02:03
Vital Signs
Initial and Last Documented VS:
Initial Vital Signs
Temp Pulse Resp BP Pulse Ox
97.8 F 104 22 216/120 98
11/03/24 01:42 11/03/24 01:42 11/03/24 01:42 11/03/24 01:42 11/03/24 01:42
Last Documented Vital Signs
Temp Pulse Resp BP Pulse Ox
97.8 F 97 18 158/99 98
11/03/24 01:42 11/03/24 05:17 11/03/24 05:17 11/03/24 05:17 11/03/24 05:17
*Critical Care Note
Total Time (30-74mins, 75-104mins- exclusive of procedures): Not Applicable
Update Note
Update Note:
CT ABDOMEN/PELVIS WITH CONTRAST
IMPRESSION:
1. Mildly prominent loops of small bowel within the central abdomen may represent ileus and/or enteritis.
2. No bowel obstruction. Normal gallbladder and appendix
Incidentals:
-Small free fluid in the deep pelvis. Moderate stool burden
- No obstructive uropathy. Right corpus luteum
- No hepatic or pancreatic mass.
- No abdominal aortic aneurysm.
- No acute osseous abnormality.
- No acute abnormality within the visualized lungs.
- No acute abnormality within the visualized soft tissues.
Case finalized on Nov 03 2024 4:21AM ET
ED Attending Note
-
Portions of this chart may have been created with voice recognition software.� Occasional wrong word or��sound alike� substitutions may have occurred due to the inherent limitations of voice recognition software.
Discharge Plan
Departure
Patient Disposition: Home (Routine Discharge)
Date of Disposition: 11/03/24
Time of Disposition: 04:47
Patient with high blood pressure during this ER visit?: Yes
Discharge Problem:
Enteritis
Instructions: Abdominal pain in adults - Discharge instructions, Abdominal Pain, BLOOD PRESSURE
Prescriptions:
No Action
aspirin 81 mg Tablet,Delayed Release (Dr/Ec)
81 mg PO BID
acetaminophen 500 mg Tablet
1,000 mg PO Q6H PRN (Reason: MILD PAIN)
calcium 1,500 mg tablet
2,250 mg PO DAILY
diltiazem HCl 180 mg Capsule,Extended Release 24hr
180 mg PO DAILY 30 Days Qty: 30 0RF
pantoprazole 40 mg Tablet,Delayed Release (Dr/Ec)
40 mg PO DAILY 30 Days Qty: 30 0RF
losartan [Cozaar] 100 mg tablet
100 mg PO DAILY Qty: 30 0RF
Referrals:
Julian Pro MD [Family Provider] -
Activity Restrictions/Additional Instructions:
It was a pleasure meeting you and taking part in your care. We hope for your continued healing and wellness.
Please read discharge instructions in their entirety. However, they are for general education and may not describe your exact diagnosis at discharge. Information on your ER visit and medical conditions were discussed with you along with appropriate
follow up information...
If indicated, please take your medications as instructed and indicated on discharge paperwork.
Please schedule a follow up appointment as directed. Call to schedule an appointment
Please return to the emergency department with ANY change in, persisting, or worsening of symptoms. If any of your symptoms do not improve, or persist, or become more severe within 6-12 hours, please return to the emergency department for further
care.
Please return to the emergency department if you develop a headache, neck pain/stiffness, fever greater than 100.4F, chest pain, shortness of breath, persistent nausea, vomiting, slurred speech, difficulty walking, numbness/tingling, weakness, signs
of infection or any other symptoms that are worrisome to you.
If you have any questions or concerns please do not hesitate to call the Hospital at or E-mail me directly at [email or web address]
Interventions
Interventions:
*Risk Screen - Suicide Last Done: 11/03/24 01:42
*General Assessment Last Done: 11/03/24 02:58
*Neglect/Abuse Screening Last Done: 11/03/24 01:42
ED- Fall Risk Assessment Last Done: 11/03/24 05:00
*ED COVID-19 Vaccine History Last Done: 11/03/24 05:15
*Nursing Disposition Last Done: 11/03/24 05:17
NA-Edkiyi-Rxvffkgwoa Assessment Last Done: 11/03/24 02:45
ED-Female Genitourinary Assessment Last Done: 11/03/24 02:54
Discharge Date and Time
Discharge Date/Time: 11/03/24 05:18
Print Language: MOHAWK
[2024-11-03 04:30] VITALS: BP 158/99
[2024-11-03 05:17] VITALS: BP 158/99
== END 2024-11-03 05:18 | disposition home or self-care (01) ==
LOC: EMR 01:39
PROVIDERS: EMERGENCY PHYSICIAN Student in an Organized Health Care Education/Training Program; FAMILY PHYSICIAN Family Medicine
DX: K52.9 Noninfective gastroenteritis and colitis, unspecified (principal); I10 Essential (primary) hypertension; E78.00 Pure hypercholesterolemia, unspecified; F41.9 Anxiety disorder, unspecified; Z85.3 Personal history of malignant neoplasm of breast
CPT/HCPCS: 99284; 74177; 80053; 85025; Q9967

== ENCOUNTER 2024-11-22 06:19 | Inpatient (IN) | payer MEDICARE, OTHER, SELFPAY ==
[2024-11-18 10:51] LABS: Hemoglobin 13.1 g/dL (12.0-16.0); Mean Corp Hgb Conc. 32.8 g/dL (33.0-37.0); Mean Corpuscular Hgb 26.8 pg (27.0-31.0); Mean Corpuscular Volume 81.8 fL (81.0-99.0); Mean Platelet Volume 8.9 fL (7.4-10.4); Platelet Count 374 10^3/uL (130-400); Red Blood Cell Count 4.89 10^6/uL (4.20-5.40); Red Cell Dist. Width 15.1 % (11.5-14.5); White Blood Cell Count 6.9 10^3/uL (4.8-10.8)
[2024-11-18 11:01] LABS: INR 1.03
[2024-11-18 11:02] LABS: APTT 29.2 Sec (23.4-35.0)
[2024-11-18 11:38] LABS: ALT (SGPT) 16 U/L (0-35); AST (SGOT) 19 U/L (14-36); Albumin 4.5 g/dl (3.5-5.0); Alkaline Phosphatase 124 U/L (38-126); Blood Urea Nitrogen 14 mg/dl (7-17); Calcium 9.2 mg/dl (8.4-10.2); Carbon Dioxide 27 mmol/L (22-30); Chloride 101 mmol/L (98-107); Glucose 87 mg/dl (70-99); Potassium 4.1 mmol/L (3.5-5.1); Sodium 137 mmol/L (135-145); Total Bilirubin 0.7 mg/dl (0.2-1.3); Total Protein 7.5 g/dl (6.3-8.2)
[2024-11-18 11:47] LABS: eGFR > 60.00
[2024-11-18 13:31] VITALS: BMI 27.8
[2024-11-22] VITALS (14 sets, daily range): BP systolic 135–171; BP diastolic 64–84; BMI 27.8
[2024-11-22] MEDS: TYLENOL 1000 MG PO ×3 (07:11→22:59)
[2024-11-22] MEDS: CELEBREX 200 MG PO (07:11)
[2024-11-22] MEDS: ENTEREG 12 MG PO (07:11)
[2024-11-22] MEDS: LYRICA 150 MG PO (07:12)
[2024-11-22] MEDS: HEPARIN 5000 UNITS SC (07:12)
[2024-11-22] MEDS: NORMOSOL-R/PLASMALYTE-A 1000 IV ×2 (07:14→14:45)
--- NOTE | 2024-11-22 14:45 | W.IMMPOSTOP ---
Addendum entered and electronically signed by Yury Wright MD 11/22/24 18:18:
Patient's spouse updated over the phone
Original Note:
Surgical Immed Post Op Note
-
Primary Surgeon: Yury Wright MD
Assisting Surgeon: KITA Orellana
Pre-op Diagnosis: History of colostomy, perforated diverticulitis
Post-op Diagnosis: History of colostomy, perforated diverticulitis
Procedure Performed: Robotic colostomy reversal, lysis of adhesions greater than 2 hours, repair of serosal injury x 3, mesenteric angiography with ICG, flexible sigmoidoscopy, repair of incisional hernia, laparoscopic tap block
Anesthesia Type: General
Specimen / Cultures: Colostomy, residual rectosigmoid
Estimated Blood Loss: 25 mL
IVF: 2L
UOP: 200mL
Complications: None
Operative Findings: Took down colostomy; freed up some adhesions from the colostomy to the omentum and transverse colon; lysis of adhesions laparoscopically and then placed ports; freed small bowel from the cecum and pelvis; loop of small bowel
adherent to the staple line of the Corby pouch; freed up sharply; oversewed serosa and 3 locations; freed up the cecum and terminal ileum from the pelvic brim; suspended the uterus; freed up the small bowel from the left gutter; mobilized the
rectosigmoid past the sacral promontory and divided the superior rectal artery; flexible sigmoidoscopy and selected transection location at 15 cm from the anal verge; performed mesenteric angiography with ICG and the proximal staple line with the
anvil appeared a little dusky; resected more descending colon to an area that was well-perfused and revised the anvil; mobilized the descending colon from the omental attachments and from attachments to the small bowel and transverse colon;
performed mesenteric angiography once more with ICG and descending colon and rectal stump well-perfused; reach was more than adequate; performed EEA stapled anastomosis, donuts intact, leak test negative, anastomosis intact on flexible
sigmoidoscopy; repaired incisional hernia primarily with 0 strata fix; closed RLQ port with Eh Humphreys and 0 Vicryl; laparoscopic tap block; closed colostomy wound and incision in usual fashion
--- NOTE | 2024-11-22 14:54 | OR.RPT ---
Operative Report
Operative Report
DATE OF OPERATION: 11/22/2024
SURGEON: Yury Wright MD
PREOPERATIVE DIAGNOSIS: History of colostomy, perforated diverticulitis
POSTOPERATIVE DIAGNOSIS: History of colostomy, perforated diverticulitis
OPERATION: Robotic colostomy reversal, repair of serosal injuries x3, adhesiolysis greater than 2 hours, mesenteric angiography with ICG, flexible sigmoidoscopy, repair of incisional hernia, laparoscopic TAP block; cystoscopy with bilateral ureteral
stents by urology
ASSISTANTS:
1. KITA Orellana
ANESTHESIA: General
ESTIMATED BLOOD LOSS: 25 mL
IVF: 2.0 L
URINE OUTPUT: 200 mL
FINDINGS:
1. Loop of small bowel adherent to the Corby pouch staple line; after sharp adhesiolysis, identified 3 serosal areas of concern along this loop of bowel, repaired primarily with Lembert stitches
2. On flexible sigmoidoscopy, diversion proctitis noted, but healthy mucosa; Corby pouch about 20 cm in length and selected transection point at about 15 cm, just distal to the rectosigmoid junction
3. Performed ICG angiography and the end of descending colon with anvil appeared somewhat ischemic; transected 2 additional centimeters of descending colon and revised the anvil
4. Performed intracorporeal EEA stapled anastomosis; donuts intact x 2, negative leak test, anastomosis intact on flexible sigmoidoscopy
5. Along the lower midline, identified a fascial defect consistent with incisional hernia; closed this primarily with 0 Stratafix
SPECIMENS:
1. Colostomy
2. Residual rectosigmoid
DRAINS: None
COMPLICATIONS: No immediate complications.
INDICATIONS: The patient is a 74-year-old female who initially presented to [facility] ED with acute abdominal pain, found to have sigmoid diverticulitis. After a trial of nonoperative measures, the patient was found to have worsening free air and
underwent a Lockhart's procedure. She eventually completely recovered from this operation. She is now seeking reversal of her colostomy. The operation was discussed with the patient in detail, including the risks, benefits and alternatives. Risks
described included, but not limited to, bleeding, infection, anastomotic leak, damage to nearby structures (i.e.- ureter, bowel, solid organs), incisional hernia, need for diverting ostomy creation, conversion to open, inability to reverse ostomy,
recurrent diverticulitis, and anesthetic risks. The patient understood and agreed to proceed.
PROCEDURE IN DETAIL: The patient was taken to the operating room and placed on the operating table in supine position. Sequential compression devices were placed bilaterally. General anesthesia was induced and the patient was intubated without
complication. The patient was placed in lithotomy position with both arms tucked. Urology performed a cystoscopy, placed bilateral ureteral stents, injected each ureter with 2.5mL of ICG and placed a Hayes. The ostomy site was sutured closed with
2-0 Vicryl. The abdomen was shaved, prepped and draped in a sterile fashion. A time-out was performed verifying the correct patient, procedure, operative site, positioning, and special equipment. Anesthesia placed an orogastric tube. IV ertapenem
was given preincision. A marking pen was used to parviz out the midline.
Using electrocautery, the mucocutaneous junction was divided circumferentially around the colostomy. This was taken down to the level of the fascia with meticulous dissection in order to prevent injury to the colon. Hemostasis was achieved. I
entered the abdominal cavity and cleared the surrounding area of adhesions using a finger sweep. After the colostomy was completely free from the abdominal wall, the colostomy was assessed and a division site was selected about 1 cm from the
colostomy. A window was created in the mesentery at this point and the mesentery was divided using clamps, Metzenbaum scissors and 0 Vicryl ties. The colon was divided with Bovie electrocautery. The colostomy was passed off as specimen. A clamp
was used to ensure adequate diameter of the colon. A 2-0 Prolene was sutured in a pursestring Gerardo fashion around the edge of the colon. The anvil was placed and the pursestring was closed around it. The anvil staple line was cleared from any
intervening mesentery and fat. A diverticulum was noted that would intervene with the anvil staple line. This was tightened to the post of the anvil using a 2-0 Vicryl in a pursestring fashion around the post. The anvil and colon was returned to
the abdomen. A small Ayad with port cap was placed and a robotic 12 mm port was placed through the port cap. The abdomen was insufflated. The robotic endoscope was advanced and the abdomen was explored.
There were multiple adhesions noted from the omentum and bowel to the anterior abdominal wall. Daniel's point was free of these adhesions so a robotic 8 mm port was placed under direct visualization. The adhesions to the anterior abdominal wall
were freed with laparoscopic michael until our proposed port sites were clear. Three 8mm robotic ports were placed under direct visualization in a diagonal fashion from Daniel's point to the right lower quadrant, as well as an 8mm assist port in the
right lateral mid abdomen, taking care to avoid injury to the right epigastric vessels. The left upper quadrant port was changed to the air seal port. The patient was placed in 30 degrees Trendelenburg (flat was noted to be at 10 degrees) and 10
degrees [id number]. The robot was docked from the patient's left side. From the RLQ to Daniel's point, the instruments introduced were the scissors, camera, bipolar grasper and tip-up grasper, respectively.
I took down the remaining adhesions from the omentum to the anterior abdominal wall. There were several loops of bowel adhered to the cecum, pelvis and left lower quadrant. These loops of small bowel were freed and pulled from the pelvis. There
was an additional loop of small bowel that was directly adherent to the staple line of the Corby's pouch. Using meticulous sharp dissection, this loop of bowel was freed. There appeared to be a band of scar versus a very small enteroenteric
fistula within this loop, which was divided. Although I felt a fistula was less likely, I oversewed each side of the band with 3-0 Vicryl in a Lembert fashion, oriented transversely along the bowel to prevent narrowing. Within the same loop, there
was also a small area that looked concerning for a serosal defect. I oversewed this location with 3-0 Vicryl's in a Lembert fashion oriented transversely along the bowel to prevent narrowing. The cecum did extend along the right lower quadrant
into the right pelvis. Adhesions from the cecum to the right pelvis were taken down and the cecum was retracted out of the pelvis. The bilateral ureters were easily identifiable on firefly and kept safe from my dissection. The patient's ovaries
and uterus appeared normal and were not involved in the adhesions. The Corby's pouch extended above the level of the uterus and was not densely adherent to it. Using a 2-0 nylon on a Miguel needle, I retracted the uterus by passing the Nylon
through the suprapubic region, through the fundus of the uterus, and back out extracorporeally.
I performed a flexible sigmoidoscopy to help estimate my level of transection. Preoperatively, I had identified a 2 cm polyp during pouchoscopy at the most proximal extent of the Lockhart's pouch. I identified this again, which was in the same
location. It was less clear that this was a true polyp. It may also represent a heaping of normal mucosa due to the prior staple line. There was changes to the mucosa, consistent with diversion proctitis. The mucosa was otherwise healthy
appearing. There was a few smears of stool and mucus, which I digitally removed. I selected a point just distal to the rectosigmoid junction, at about 15 cm from the anal verge. I mobilized the proximal rectum, first entering the presacral plane
posteriorly, and taking this dissection along the mesorectal fascia laterally. I identified the superior hemorrhoidal artery, which I circumferentially dissected and ligated with the vessel sealer. I cleared up the peritoneum laterally down to 3
cm above the anterior reflection. The proximal rectum was nicely mobilized. At my proposed transection point, I divided the mesorectum with the vessel sealer. Then I stapled and divided the rectum with the 60 mm green load.
I turned my attention to the descending colon and anvil. At this point, I noticed that the descending colon immediately involved with the anvil seemed a little dusky. Anesthesia injected ICG and I evaluated the descending colon on firefly. The
area with the anvil did have perfusion on the mesenteric border, but the antimesenteric border did not seem well-perfused. Therefore, I decided to revise my proximal colon and anvil intracorporeally. I cut the 2-0 Prolene pursestring stitch. I
attached the spike to the anvil, which had a long Prolene tied to it. I advanced the anvil proximally up the descending colon. I selected a point on the descending colon that was well-perfused on firefly, about 3 cm proximal from the cut edge. I
divided the mesentery with the vessel sealer and divided across the colon with a blue load of the 60 mm stapler. I grabbed the Prolene stitch that was sticking through the staple line and elevated this. I advanced the anvil through the staple line
after removing 3 chrissy. I cleaned up the anvil from intervening mesentery and the anvil was seated nicely against the staple line.
I checked my reach from the anvil to the proximal rectum and the reach was inadequate. I mobilized the descending colon laterally up to the level of the splenic flexure without taking down the splenic flexure. I mobilized the descending colon
medially from attachments to the small bowel and the transverse colon. I identified what appeared to be the left colic artery running up toward the descending colon. In order to assure adequate perfusion, I left this in place. I divided the
omental attachments to the descending colon. I checked my reach again and it was plenty adequate. The operative field was surveyed and hemostasis was ensured. Then, sizers were passed up the rectum to ensure adequate circumference and length. The
EEA stapler was passed transanally to the staple line. The pin was extended and was connected to the anvil. After ensuring there was no twist to the mesentery and there was no tension, the EEA stapler was closed for 1 minute and then fired. Both
donuts were intact. A leak test was performed by filling the pelvis with saline, occluding the proximal lumen and insufflating with the flexible sigmoidoscope. There was no evidence of leak from the anastomosis. Endoscopically, the anastomosis was
intact without evidence of bleeding. The colorectum was desufflated and the flexible sigmoidoscope removed. The anterior aspect of the anastomosis was oversewn with interrupted Lemberts using 2-0 Vicryl's. I turned my attention to the incisional
hernia along the lower midline. Using an 0 Stratafix stitch, I repaired the defect primarily running the stitch along its length forward and then backward. It measured about 4 to 5 cm in length at the end of the repair. I checked the operative
field once more and hemostasis was assured.
The robotic instruments were removed and the robot was undocked. The right lower quadrant port site was closed with a Eh Humphreys device and an 0 Vicryl in a simple interrupted fashion. Using laparoscopic visualization, a TAP block was
performed using a total of 30 mL of 0.25% Marcaine with epinephrine mixed with dexamethasone and injecting in the transverse abdominis plane bilaterally. The remaining ports were removed under direct visualization and no bleeding was noted. The
colostomy site was closed. First, the edges of the anterior fascia were cleaned from the subcutaneous fat. Then, the anterior fascia was closed using an 0 Stratafix suture. The incisions were then irrigated. The skin opening of the colostomy
wound was tightened to the diameter of my index finger by running a 2-0 Vicryl stitch in a deep-dermal pursestring fashion. The wound was packed with plain packing soaked in Betadine. The remaining 30 cc of 0.25% Marcaine with epinephrine mixed
with dexamethasone were injected around the incisions. The incisions were then closed with running subcuticular 4-0 Monocryl and dressed with Dermabond.
At this point, the procedure was complete. The patient was awoken and extubated without complication. The right stent was removed, and the left stent and Hayes were left in place. All needle, sponge and instrument counts were reported as correct.
The patient tolerated the procedure well and was transferred to the recovery room in stable condition with the hayes in place.
DICTATED BY: Yury Wright MD
[2024-11-22] MEDS: TORADOL 15 MG IV ×2 (16:30→22:11)
--- NOTE | 2024-11-22 18:19 | PTCARENOTE ---
Pt received from PACU. Pt oriented to staff and call light system.
[2024-11-22] MEDS: COZAAR 50 MG PO (20:55)
[2024-11-22] MEDS: CARDIZEM CD 120 MG PO (22:11)
[2024-11-23] VITALS (7 sets, daily range): BP systolic 106–139; BP diastolic 51–67; PULSE 76; O2SAT 98; BMI 27.8
--- NOTE | 2024-11-23 01:14 | PTCARENOTE ---
At approx 2230, Left abdomen (colostomy reversal site) dressing noted to be completely saturated with drainage noted to patient's gown and blanket. Physician on-call for colorectal surgery notified. Per Dr. Perez, dressing reinforced. Post op
dressing covered wtih ABD pad and paper tape. Dressing monitored frequently throughout the night and will notify MD of any changes in patient's status.
[2024-11-23] MEDS: TORADOL 15 MG IV ×4 (03:12→21:18)
[2024-11-23] MEDS: NORMOSOL-R/PLASMALYTE-A 1000 IV (04:41)
[2024-11-23] MEDS: TYLENOL 1000 MG PO ×3 (06:23→18:07)
[2024-11-23 06:45] LABS: Blood Urea Nitrogen 19 mg/dl (7-17); Calcium 8.5 mg/dl (8.4-10.2); Carbon Dioxide 23 mmol/L (22-30); Chloride 101 mmol/L (98-107); Estimated Creatinine Clearance 48 ml/min; Glucose 116 mg/dl (70-99); Potassium 4.3 mmol/L (3.5-5.1); Sodium 133 mmol/L (135-145); eGFR 59.12
[2024-11-23 07:03] LABS: % Basophils 0.1 % (0-2); % Immature Granulocytes 0.6 % (0-0.5); % Lymphocytes 4.4 % (20.5-51.1); % Monocytes 9.6 % (1.7-9.3); % Neutrophils 85.3 % (42.2-75.2); Absolute Immature Granulocytes 0.1 10^3/uL (0-0.05); Absolute Lymphocytes 0.8 10^3/uL (1.2-3.4); Absolute Monocytes 1.7 10^3/uL (0.1-0.6); Absolute Neutrophils 15.3 10^3/uL (1.4-6.5); Hematocrit 30.9 % (37.0-47.0); Hemoglobin 10.4 g/dL (12.0-16.0); Mean Corp Hgb Conc. 33.7 g/dL (33.0-37.0); Mean Corpuscular Volume 80.3 fL (81.0-99.0); Mean Platelet Volume 9.8 fL (7.4-10.4); Nucleated Red Blood Cells % 0 %; Platelet Count 354 10^3/uL (130-400); Red Blood Cell Count 3.85 10^6/uL (4.20-5.40); Red Cell Dist. Width 14.9 % (11.5-14.5); White Blood Cell Count 17.9 10^3/uL (4.8-10.8)
[2024-11-23] MEDS: ENTEREG 12 MG PO ×2 (09:21→21:18)
[2024-11-23] MEDS: COZAAR 50 MG PO ×2 (09:21→21:18)
--- NOTE | 2024-11-23 11:05 | W.PN.CRS1 ---
Today's Communication / Plan
-
regular diet
d/c hayes
wound caer
Assessment/Plan
-
POD#1 Robotic colostomy reversal/repair of incisional hernia
Hgb: 10.4 (13.1), WBC 17.9 (6.9)
-Advance diet to regular
-Stent #2 removed
-Start Lovenox tonight for DVT prophylaxis. Teds and SCDs in place.
-Out of bed as tolerated
-OR pathology pending
-Pain control: Tylenol and Toradol standing, Dilaudid as needed
-D/C hayes
-Incentive spirometry q1 hour while awake
-Wound care: dry gauze and paper tape, change daily and PRN
Subjective Data
Procedure
11/22/2024- Robotic colostomy reversal, lysis of adhesions greater than 2 hours, repair of serosal injury x 3, mesenteric angiography with ICG, flexible sigmoidoscopy, repair of incisional hernia, laparoscopic tap block
Subjective Data
Date of Service: November 23, 2024
Patient states she feels well. She has some soreness. She denies nausea or vomiting. She has not had any bowel movement yet.
Objective Data
-
Vital Signs
Temp Pulse Resp BP Pulse Ox
98.2 F 68 16 130/60 97
11/23/24 08:02 11/23/24 08:02 11/23/24 08:02 11/23/24 08:02 11/23/24 10:23
Intake & Output
11/22/24 11/23/24 11/24/24
06:59 06:59 06:59
Intake Total 200 / 200
Output Total 350 / 350
Balance -150 / -150
Intake:
IV fluids (Total) 200 / 200
normosol 200 / 200
Output:
Urine, Hayes 350 / 350
Lab Results
11/23/24 05:45
11/23/24 05:45
Physical Exam
-
General: No Acute Distress and AOx3
Abdomen: Soft, Non Distended and Tender (Mild around wound site)
Wound: Other (Packing in place, dressing changed, dressing was saturated with blood but no active bleeding noted)
--- NOTE | 2024-11-23 15:18 | CM ---
Patient seen at bedside. Patient lives with significant other in a 2 story home. Patient has a walker and a cane and uses as she feels appropriate. Patient stated that her PCP is Dr. Pro and she uses the [facility] in [place]. Patient stated that
she does drive and is independent of ADL's and IADL's. Patient plan is for discharge home with no needs but if Home Health is recommended she would like [facility]. CM will continue to follow for discharge planning needs.
Plan; home with VN vs home with no needs. pending assessments
[2024-11-23] MEDS: CARDIZEM CD 120 MG PO (21:18)
[2024-11-24] MEDS: TYLENOL 1000 MG PO ×3 (00:19→12:46)
[2024-11-24 04:00] VITALS: BP 138/68
[2024-11-24] MEDS: TORADOL 15 MG IV ×2 (04:57→11:00)
[2024-11-24 06:56] VITALS: BP 143/66
[2024-11-24 07:09] LABS: Blood Urea Nitrogen 25 mg/dl (7-17); Calcium 8.4 mg/dl (8.4-10.2); Carbon Dioxide 27 mmol/L (22-30); Chloride 98 mmol/L (98-107); Estimated Creatinine Clearance 54 ml/min; Glucose 79 mg/dl (70-99); Potassium 3.7 mmol/L (3.5-5.1); Sodium 132 mmol/L (135-145); eGFR > 60.00
[2024-11-24 07:17] LABS: % Basophils 0.2 % (0-2); % Eosinophils 0.3 % (0-6); % Immature Granulocytes 0.5 % (0-0.5); % Lymphocytes 12.7 % (20.5-51.1); % Monocytes 9.6 % (1.7-9.3); % Neutrophils 76.7 % (42.2-75.2); Absolute Immature Granulocytes 0.1 10^3/uL (0-0.05); Absolute Lymphocytes 1.9 10^3/uL (1.2-3.4); Absolute Monocytes 1.4 10^3/uL (0.1-0.6); Absolute Neutrophils 11.3 10^3/uL (1.4-6.5); Hematocrit 26.1 % (37.0-47.0); Hemoglobin 8.9 g/dL (12.0-16.0); Mean Corp Hgb Conc. 34.1 g/dL (33.0-37.0); Mean Corpuscular Hgb 27.2 pg (27.0-31.0); Mean Corpuscular Volume 79.8 fL (81.0-99.0); Mean Platelet Volume 9.5 fL (7.4-10.4); Nucleated Red Blood Cells % 0 %; Platelet Count 274 10^3/uL (130-400); Red Blood Cell Count 3.27 10^6/uL (4.20-5.40); Red Cell Dist. Width 14.9 % (11.5-14.5); White Blood Cell Count 14.7 10^3/uL (4.8-10.8)
[2024-11-24] MEDS: COZAAR 50 MG PO (08:06)
[2024-11-24] MEDS: ENTEREG 12 MG PO (08:06)
--- NOTE | 2024-11-24 10:27 | W.PN.CRS1 ---
Addendum entered and electronically signed by Kelsey Thompson PA-C 11/29/24 12:07:
Of note, the patient had a sodium of 133 on 11/23/24 and 132 on 11/24/24. This is considered 'hyponatremia'.
Of note, the patient had a hemoglobin of 8.9 on 11/24/2024. This is anemia, likely due to hemodilution.
Original Note:
Today's Communication / Plan
-
continue diet
recheck cbc at noon
possible d/c later today
Assessment/Plan
-
POD#2 Robotic colostomy reversal/repair of incisional hernia
Hgb: 8.9 (10.4), WBC 14.7 (17.9)
-Continue regular diet
-Hgb is 8.9, likely anemia due to dilution and post op losses.
-Lovenox held due to anemia. Teds and SCDs in place.
-Out of bed as tolerated
-OR pathology pending
-Pain control: Tylenol and Toradol standing, Dilaudid as needed
-Incentive spirometry q1 hour while awake
-Wound care: dry gauze and paper tape, change daily and PRN. Packing removed.
-Possible discharge later today if tolerating a diet and cbc remains stable. Discussed with patient and daughter at bedside. I will check in later this afternoon to reassess.
Subjective Data
Procedure
11/22/2024- Robotic colostomy reversal, lysis of adhesions greater than 2 hours, repair of serosal injury x 3, mesenteric angiography with ICG, flexible sigmoidoscopy, repair of incisional hernia, laparoscopic tap block
Subjective Data
Date of Service: November 24, 2024
Patient states she feels 'okay'. She denies nausea or vomiting. She states her pain comes and goes but generally speaking she is doing well. She is having bowel movements and gas. She denies any bleeding.
Objective Data
-
Vital Signs
Temp Pulse Resp BP Pulse Ox
97.9 F 66 18 143/66 97
11/24/24 06:56 11/24/24 06:56 11/24/24 06:56 11/24/24 06:56 11/24/24 06:56
Intake & Output
11/23/24 11/24/24 11/25/24
06:59 06:59 06:59
Intake Total 200 / 200 1460 / 1460
Output Total 350 / 350 625 / 625
Balance -150 / -150 835 / 835
Intake:
Oral fluids 960 / 960
IV fluids (Total) 200 / 200 500 / 500
normosol 200 / 200
Output:
Urine, Mas 350 / 350 300 / 300
Urine, Voided 325 / 325
Other:
Number of approximated MODERATE 1
amounts of urine
Lab Results
11/24/24 06:20
Physical Exam
-
General: No Acute Distress and AOx3
Abdomen: Soft and Non Distended
Wound: Dressing in Place and Other (packing removed, dressing changed with dry gauze and tape)
[2024-11-24 11:27] VITALS: BP 128/54
[2024-11-24 12:16] LABS: % Basophils 0.2 % (0-2); % Eosinophils 0.2 % (0-6); % Immature Granulocytes 0.7 % (0-0.5); % Lymphocytes 12.9 % (20.5-51.1); % Monocytes 7.7 % (1.7-9.3); % Neutrophils 78.3 % (42.2-75.2); Absolute Immature Granulocytes 0.1 10^3/uL (0-0.05); Absolute Lymphocytes 1.7 10^3/uL (1.2-3.4); Absolute Neutrophils 10.3 10^3/uL (1.4-6.5); Hematocrit 27.3 % (37.0-47.0); Hemoglobin 9.1 g/dL (12.0-16.0); Mean Corp Hgb Conc. 33.3 g/dL (33.0-37.0); Mean Corpuscular Hgb 27.2 pg (27.0-31.0); Mean Corpuscular Volume 81.7 fL (81.0-99.0); Mean Platelet Volume 8.9 fL (7.4-10.4); Nucleated Red Blood Cells % 0 %; Platelet Count 283 10^3/uL (130-400); Red Blood Cell Count 3.34 10^6/uL (4.20-5.40); Red Cell Dist. Width 15.1 % (11.5-14.5); White Blood Cell Count 13.2 10^3/uL (4.8-10.8)
--- NOTE | 2024-11-24 12:29 | PN.CDI ---
CDI
- -
CDI:
Physician Documentation Request
Admit Date: 11/22/24 06:19
Dear Colorectal,
Please review the following and provide your response in the progress notes.
Clinical Indicators:
- 2/3 Post Op EBL 25ml
- 2/4 Colorectal 'dressing was saturated with blood but no active bleeding noted'
- 2/ Colorectal 'Hgb is 8.9, likely anemia due to dilution and post op losses'
- Hgb labs:
Laboratory Tests
11/18/24 11/23/24 11/24/24
10:31 05:45 06:20
Hgb 13.1 10.4 L D 8.9 L
Please clarify the appropriate diagnosis that supports the above lab abnormalities and further clarify the acuity of the anemia and post op losses?
Anemia, due to acute blood loss and hemodilution
Anemia due to hemodilution only
Clinically insignificant abnormal lab values
Other (please specify)
Use of terms such as suspected, likely, concern for, or probable (associated with a specific diagnosis that is being evaluated, monitored, or treated as if it exists) are acceptable and can be coded in the inpatient setting, when documented at the
time of discharge.
Thank you,
Javon Alba RN
CDI Specialist
Please use your independent medical judgment in providing your response.
--- NOTE | 2024-11-24 12:35 | PN.CDI ---
CDI
- -
CDI:
Physician Documentation Request
Admit Date: 11/22/24 06:19
Dear Colorectal,
Please review the following and provide your response in the progress notes.
Clinical Indicators:
- Patient admit for colostomy reversal
- 3L IVF given
Laboratory Tests
11/23/24 11/24/24
05:45 06:20
Sodium 133 L 132 L
Please provide a diagnosis for the above lab values that were monitored and treatment rendered:
Hyponatremia
Clinically insignificant abnormal lab value
Other (please specify)
Use of terms such as suspected, likely, concern for, or probable (associated with a specific diagnosis that is being evaluated, monitored, or treated as if it exists) are acceptable and can be coded in the inpatient setting, when documented at the
time of discharge.
Thank you,
Javon Alba RN
CDI Specialist
Please use your independent medical judgment in providing your response.
--- NOTE | 2024-11-24 13:09 | CM ---
Addendum entered by Leonila Oakes 11/24/24 13:31:
please fax [phone] for [facility] discharge summary.
Original Note:
Patient seen at bedside earlier today with daughter. Plan is for discharge possibly today per patient. Requesting [facility] for follow up. CM requested referral from physician and will send to [facility]. CM will provide patient with IMM and
daughter plan is to transport patient home. CM will continue to follow for discharge planning needs.
Plan;home with [facility] pending acceptance
--- NOTE | 2024-11-24 13:11 | W.DS.TRANS ---
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
-
Discharge Instructions:
Sleep Apnea Risk Low
Discharge Diagnosis/Procedures Robotic colostomy reversal, lysis of adhesions
greater than 2 hours, repair of serosal injury x
3
Diet Regular
Activity No strenuous activity
Additional Activity No lifting over 10lbs (gallon of milk)
Driving Restrictions No driving for 2 weeks
Bathing Restrictions OK to Shower
Wound Care Cover the wound with 4x4 gauze and tape daily
and as needed. Okay to leave open to air to
shower. No need for packing.
Instructions:
Stand-Alone Forms:
Changes to Home Medications: Yes
Discharge Medications:
DC Medications w/original date entered in [facility]
Centrum Silver 1 tab PO DAILY Supplement 11/16/24
Cyclosporine Drops 1 drp BOTH EYES Q OTHER DAY Eye Condition 11/16/24
Fish Oil 1,000 mg PO DAILY Supplement 11/16/24
Ozurdex 1 dose BOTH EYES [id number] Eye Condition 11/16/24
Pumpkin Seed Oil 1,000 mg PO NOON Supplement 11/16/24
Viviscal 1 pill PO BID Supplement 11/16/24
diltiazem HCl 120 mg capsule,24 hr,extended release 120 mg PO HS Heart Disease/Condition 11/16/24
docusate sodium 100 mg capsule (Colace) 100 mg PO NOON Constipation 11/16/24
fluticasone propionate 50 mcg/actuation nasal spray,suspension 1 spray intranasal BID PRN allergies 11/16/24
ibuprofen 200 mg tablet 200 mg PO Q6H PRN pain 11/16/24
loratadine 10 mg tablet 10 mg PO DAILY PRN allergies 11/16/24
losartan 50 mg tablet 50 mg PO BID Blood Pressure 11/16/24
minoxidil 2 % topical solution (Rogaine) 1 ml topical HS alopecia 11/16/24
polyethylene glycol 3350 17 gram/dose oral powder (Miralax) 4 g PO DAILY Constipation 11/16/24
Home Medication Changes
Pending Results: Yes
Additional Pending Results:
OR pathology
--- NOTE | 2024-11-30 14:16 | W.DCSUMMARY ---
Discharge Summary
Discharge Data
Date of Admission: 11/22/24
Date of Discharge: 11/24/24
-
Pending Results: Yes
Additional Pending Results:
Pathology
Hospital Course
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 This was performed by Dr. Yury Wright. Ultimately a robotic colostomy reversal,
lysis of adhesions greater than 2 hours, repair of serosal injury x 3, and repair of incisional hernia were performed. The patient was admitted to the medical surgical floor postoperatively. She had a ureter stent and Mas catheter in place. On
postop day 1 the patient's diet was advanced from clears to a regular diet. Lovenox was started for DVT prophylaxis. The Mas was discontinued and she voided without difficulty. She was out of bed. On postop day 2 the patient's hemoglobin went
from 8.9 from 10.4. 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 A repeat hemoglobin was stable later in the day. The patient had bowel function and was doing well. Her pain was well-controlled. It was determined the patient could then be
discharged home. All discharge instructions were discussed with the patient including medications activity levels and follow-up. All questions were answered. OR pathology was pending at the time of discharge.
Discharge Plan
-
Patient Disposition: Home with Home Care
Discharge Diagnosis/Procedures: Robotic colostomy reversal, lysis of adhesions greater than 2 hours, repair of serosal injury x 3
Diet: Regular
Activity: No strenuous activity
Additional Activity: No lifting over 10lbs (gallon of milk)
Driving Restrictions: No driving for 2 weeks
Bathing Restrictions: OK to Shower
Wound Care: Cover the wound with 4x4 gauze and tape daily and as needed. Okay to leave open to air to shower. No need for packing.
Referrals:
Julian Pro MD [Family Provider] -
Yury Wright MD [Active] - in two weeks
Additional Discharge Medication Instructions: Tylenol or ibuprofen as needed for pain. Maximum dose of Tylenol in 24 hours is 4000 mg. Maximum dose of ibuprofen in 24 hours is 3200 mg.
Prescriptions:
Continued
diltiazem HCl 120 mg Capsule,Extended Release 24hr
120 mg PO HS
losartan 50 mg Tablet
50 mg PO BID
ibuprofen 200 mg Tablet
200 mg PO Q6H PRN (Reason: pain)
docusate sodium [Colace] 100 mg Capsule
100 mg PO NOON
fluticasone propionate 50 mcg/actuation [place],Suspension
1 spray INTRANASAL BID PRN (Reason: allergies)
loratadine 10 mg Tablet
10 mg PO DAILY PRN (Reason: allergies)
minoxidil [Rogaine] 2 % Solution
1 ml TOPICAL HS
Centrum Silver
1 tab PO DAILY
Cyclosporine Drops
1 drp BOTH EYES Q OTHER DAY
Fish Oil
1,000 mg PO DAILY
Ozurdex
1 dose BOTH EYES [id number]
Patient Comments:
injection by MD
Pumpkin Seed Oil
1,000 mg PO NOON
Viviscal
1 pill PO BID
Discontinued
polyethylene glycol 3350 [Miralax] 17 gram/dose Powder
4 g PO DAILY
Sutab 1.479-0.188- 0.225 gram Tablet
0 tab PO PRE OP
Discharge Orders:
Discharge Patient (As Directed); Ordered 11/24/24
Ordered By: Kelsey Thompson
Discharge Date and Time
Discharge Date/Time: 11/24/24 15:02
Print Language: MONGOLIAN
== END 2024-11-24 15:02 | disposition home health service (06) | DRG 330 ==
LOC: 3 WEST ACU 06:19
PROVIDERS: Physician Assistant; ADMITTING PHYSICIAN Surgery; FAMILY PHYSICIAN Family Medicine
PROC: 0DB Gastrointestinal System, Excision (ICD-10-PCS; 2024-11-22)
PROC: 0WQF4ZZ Repair Abdominal Wall, Percutaneous Endoscopic Approach (ICD-10-PCS; 2024-11-22)
PROC: 0DQ83ZZ Repair Small Intestine, Percutaneous Approach (ICD-10-PCS; 2024-11-22)
PROC: 0DNU4ZZ Release Omentum, Percutaneous Endoscopic Approach (ICD-10-PCS; 2024-11-22)
PROC: 0DN Gastrointestinal System, Release (ICD-10-PCS; 2024-11-22)
PROC: 0WQFXZ2 Repair Abdominal Wall, Stoma, External Approach (ICD-10-PCS; 2024-11-22)
DX: Z43.3 Encounter for attention to colostomy (principal); E87.1 Hypo-osmolality and hyponatremia; K66.0 Peritoneal adhesions (postprocedural) (postinfection); K43.2 Incisional hernia without obstruction or gangrene
CPT/HCPCS: 88304; 88307; 36415; 71046; 80048; 80053; 85025; 85027; 85610; 85730; 86850; 86900; 86901; 97163; A4300; C1769; J1335